=== PATIENT | female | born 1965 | race Caucasian/White ===

== ENCOUNTER 2016-05-18 18:43 | Emergency (ER) | payer BC ==
[2016-05-19] MEDS ORDERED: ALBUTEROL SULFATE HFA (90 MCG/PUFF) 8 GM MDI (1 MDI/ER DISP) IH ONE (00:02)
[2016-05-19] MEDS ORDERED: DOXYCYCLINE HYCLATE 100 MG TABLET PO ONE (00:04)
--- NOTE | 2016-05-19 00:06 | ER Document Report ---
ED General - General Chief Complaint: Cough Stated Complaint: COUGH TRAVEL OUTSIDE OF THE [place] IN LAST 30 DAYS: No - HPI Patient complains to provider of: cough Notes: Patient coming in from local urgent care for evaluation of bronchitis. Patient states before she was diagnosed with pneumonia and was started on ciprofloxacin for antibiotic coverage of her pneumonia patient was also given Tessalon Perles for cough patient states she was seen at urgent care today continue to have symptoms and was referred to the ER for further evaluation of her bronchitis. Patient denies fevers chills denies any recent travel and ciprofloxacin denies any other antibiotics. Patient was given a shot of steroids prior to arrival. - Related Data Allergies/Adverse Reactions: hydrocodone Allergy (Verified 05/18/16 19:00) midazolam [From Versed] Allergy (Verified 05/18/16 19:00) oxycodone Allergy (Verified 05/18/16 19:00) promethazine [From Phenergan] Allergy (Verified 05/18/16 19:00) red dye Allergy (Verified 05/18/16 19:00) Past Medical History - General Information source: Patient - Social History Smoking Status: Never Smoker Chew tobacco use (# tins/day): No Frequency of alcohol use: None Drug Abuse: None Family History: Reviewed & Not Pertinent Patient has suicidal ideation: No Patient has homicidal ideation: No Review of Systems - Review of Systems Constitutional: No symptoms reported EENT: No symptoms reported Cardiovascular: No symptoms reported Respiratory: Cough, Sputum Gastrointestinal: No symptoms reported Genitourinary: No symptoms reported Female Genitourinary: No symptoms reported Musculoskeletal: No symptoms reported Skin: No symptoms reported Hematologic/Lymphatic: No symptoms reported Neurological/Psychological: No symptoms reported -: Yes All other systems reviewed and negative Physical Exam - Vital signs Vitals: Temp Pulse Resp BP 98.2 F 89 24 H 151/75 H 05/18/16 18:51 05/18/16 18:51 05/18/16 18:51 05/18/16 18:51 Interpretation: Normal - General General appearance: Appears well, Alert - HEENT Head: Normocephalic, Atraumatic Eyes: Normal Pupils: PERRL - Respiratory Respiratory status: No respiratory distress Chest status: Nontender Breath sounds: Normal Chest palpation: Normal - Cardiovascular Rhythm: Regular Heart sounds: Normal auscultation Murmur: No - Abdominal Inspection: Normal Distension: No distension Bowel sounds: Normal Tenderness: Nontender Organomegaly: No organomegaly - Back Back: Normal, Nontender - Extremities General upper extremity: Normal inspection, Nontender, Normal color, Normal ROM , Normal temperature General lower extremity: Normal inspection, Nontender, Normal color, Normal ROM , Normal temperature, Normal weight bearing. No: Cynthia's sign - Neurological Neuro grossly intact: Yes Cognition: Normal Orientation: AAOx4 [place] Coma Scale Eye Opening: Spontaneous Gillian Coma Scale Verbal: Oriented [place] Coma Scale Motor: Obeys Commands Gillian Coma Scale Total: 15 Speech: Normal Motor strength normal: LUE, RUE, LLE, RLE Sensory: Normal - Psychological Associated symptoms: Normal affect, Normal mood - Skin Skin Temperature: Warm Skin Moisture: Dry Skin Color: Normal Course - Re-evaluation Re-evalutation: 05/19/16 04:09 Patient with no respiratory distress. Patient is actively coughing nonproductive. Explained patient is possibly viral although since the patient has had symptoms for over 7 days we can try doxycycline see if this will help out with her symptoms. Explained patient was not a great choice for her pneumonia coverage. However patient is afebrile does not look she are sound like she has pneumonia at this time. Patient will be treated otherwise symptomatically discharged home - Vital Signs Vital signs: Temp Pulse Resp BP Pulse Ox 98.2 F 89 18 147/62 H 97 05/18/16 18:51 05/19/16 00:41 05/19/16 00:41 05/19/16 00:41 05/19/16 00:41 Discharge - Discharge Clinical Impression: Bronchitis Condition: Good Disposition: HOME, SELF-CARE Instructions: Bronchitis ([facility]) Additional Instructions: Follow-up with your primary care physician. Will try to place you on a bronchodilator and antibiotic of doxycycline to treat her bronchitis. Prescriptions: Doxycycline Hyclate 100 mg PO BID #14 capsule Forms: Return to Work
[2016-05-19 00:43] VITALS: BP 147/62
== END 2016-05-19 00:44 | disposition home or self-care (01) ==
LOC: ER 18:43
DX: J40 Bronchitis, not specified as acute or chronic (principal); R05 Cough
CPT/HCPCS: 99283; J3490

== ENCOUNTER 2016-09-12 22:24 | Emergency (ER) | payer BC, OTHER ==
[2016-09-12 23:21] LABS: ABSOLUTE BASOPHILS # (AUTO) 0.1 10^3/uL (0.0-0.2); ABSOLUTE LYMPHOCYTES (AUTO) 1.7 10^3/uL (0.5-4.7); ABSOLUTE MONOCYTES (AUTO) 0.9 10^3/uL (0.1-1.4); ABSOLUTE NEUT (AUTO) 7.2 10^3/uL (1.7-8.2); BASOPHILS % (AUTO) 0.6 % (0-2); EOSINOPHILS % (AUTO) 0.1 % (0-6); HEMATOCRIT 38.4 % (36.0-47.0); HEMOGLOBIN 12.9 g/dL (12.0-15.5); HGB HCT DIFFERENCE 0.3; LYMPHOCYTES % (AUTO) 17.4 % (13-45); MEAN CORPUSCULAR HEMOGLOBIN 28.4 pg (27.0-33.4); MEAN CORPUSCULAR HGB CONC 33.5 g/dL (32.0-36.0); MEAN CORPUSCULAR VOLUME 85 fl (80-97); MONOCYTES % (AUTO) 9.1 % (3-13); RED BLOOD COUNT 4.53 10^6/uL (3.72-5.28); RED CELL DISTRIBUTION WIDTH 13.8 % (11.5-14.0); SEGMENTED NEUTROPHILS % (AUTO) 72.8 % (42-78); WHITE BLOOD COUNT 9.9 10^3/uL (4.0-10.5)
[2016-09-12 23:34] LABS: ALANINE AMINOTRANSFERASE 25 U/L (9-52); ALBUMIN 4.6 g/dL (3.5-5.0); ALKALINE PHOSPHATASE 79 U/L (38-126); ANION GAP 16 (5-19); ASPARTATE AMINO TRANSFERASE 19 U/L (14-36); BILIRUBIN,DIRECT 0.1 mg/dL (0.0-0.4); BILIRUBIN,TOTAL 0.3 mg/dL (0.2-1.3); BLOOD UREA NITROGEN 21 mg/dL (7-20); CALCIUM 9.7 mg/dL (8.4-10.2); CARBON DIOXIDE 23 mmol/L (22-30); CHLORIDE 107 mmol/L (98-107); CREATININE RESULT 0.75 mg/dL (0.52-1.25); GLUCOSE 105 mg/dL (75-110); LIPASE 91.5 U/L (23-300); POTASSIUM 4.5 mmol/L (3.6-5.0); SODIUM 145.6 mmol/L (137-145); TOTAL PROTEIN 6.9 g/dL (6.3-8.2)
[2016-09-12 23:35] LABS: APPEARANCE,URINE SLIGHTLY-CLOUDY; BILIRUBIN,URINE NEGATIVE (NEGATIVE); CALCIUM OXALATE CRYSTALS,URINE TOO NUMEROUS TO CNT /HPF; GLUCOSE, URINE NEGATIVE (NEGATIVE); KETONES,URINE TRACE mg/dL (NEGATIVE); LEUKOCYTE ESTERASE,URINE NEGATIVE (NEGATIVE); NITRITE,URINE NEGATIVE (NEGATIVE); PROTEIN,URINE 100 mg/dL (NEGATIVE); URINE SPECIFIC GRAVITY 1.039; UROBILINOGEN,URINE NEGATIVE mg/dL (<2.0)
[2016-09-12] MEDS ORDERED: ONDANSETRON 4 MG TAB.RAPDIS PO ONE (23:54)
[2016-09-12] MEDS ORDERED: KETOROLAC TROMETHAMINE 60 MG/2 ML SDV IM ONE (23:54)
--- NOTE | 2016-09-12 23:57 | ER Document Report ---
ED General - General Chief Complaint: Abdominal Pain Stated Complaint: ABDOMINAL PAIN Notes: Patient is 50-year-old female who presents with complaint of left-sided abdominal pain. She says she pain in her back initially. Now pain is mostly in the left lower quadrant. She says pain is not quite as bad as it was earlier but she still has pain. She's had some nausea but no vomiting. No fevers. She has had some constipation. She has dysuria when she urinates. Symptoms started approximately 30 minutes prior to arrival. She's never had similar symptoms like this before. Only new medication is furosemide. TRAVEL OUTSIDE OF THE [place] IN LAST 30 DAYS: No - HPI Notes: Patient is now feeling improved. CT scan shows that the stone is in the bladder. I asked patient about switching take for pain control. She has multiple allergies including hydrocodone and oxycodone. Patient says she Take his medications. They just cause some itching. She says she takes some of Benadryl and itching is well controlled. She never had any airway compromise or difficulty breathing when taking these medications. I will give her a Hershey to go pack to go home with. Hopefully she'll not need much pain medicine as systems are in her bladder. She is no signs infection. She looks well. I feel she is safe to be discharged home. I encourage her to return to ER shows worsening pain, vomiting, fevers, or feels unwell. Patient agrees with plan will be discharged home. Dictation of this chart was performed using voice recognition software; therefore, there may be some unintended grammatical errors. - Related Data Allergies/Adverse Reactions: hydrocodone Allergy (Verified 09/12/16 22:47) midazolam [From Versed] Allergy (Verified 09/12/16 22:47) oxycodone Allergy (Verified 09/12/16 22:47) promethazine [From Phenergan] Allergy (Verified 09/12/16 22:47) red dye Allergy (Verified 09/12/16 22:47) Past Medical History - Social History Smoking Status: Never Smoker Frequency of alcohol use: None Drug Abuse: None Family History: Reviewed & Not Pertinent Patient has suicidal ideation: No Patient has homicidal ideation: No Renal/ Medical History: Denies: Hx Peritoneal Dialysis Review of Systems - Review of Systems Notes: My Normal Review Basic REVIEW OF SYSTEMS: CONSTITUTIONAL : Denies fever, chills, or sweats. Denies recent illness. RESPIRATORY: Denies cough, cold, or chest congestion. Denies shortness of breath, difficulty breathing, or wheezing. GASTROINTESTINAL: Left flank and left lower quadrant abdominal pain. Nausea. Denies constipation. Last BM: GENITOURINARY: Dysuria FEMALE GENITOURINARY: Denies vaginal bleeding, abnormal or irregular periods. MUSCULOSKELETAL: Denies neck or back pain or joint pain or swelling. SKIN: Denies rash or skin lesions. NEUROLOGICAL: Denies altered mental status or loss of consciousness. Denies headache. Denies weakness or paralysis or loss of use of either side. Denies problems with gait or speech. Denies sensory or motor loss. ALL OTHER SYSTEMS REVIEWED AND NEGATIVE. Physical Exam - Vital signs Vitals: Temp Pulse Resp BP Pulse Ox 97.5 F 54 L 24 H 167/95 H 96 09/12/16 22:47 09/12/16 22:47 09/12/16 22:47 09/12/16 22:47 09/12/16 22:47 - Notes Notes: General Appearance: Well nourished, alert, cooperative, no acute distress, moderate obvious discomfort. Vitals: reviewed, See vital signs table. Head: no swelling or tenderness to the head Eyes: PERRL, EOMI, Conjuctiva clear Mouth: No decreasd moisture Neck: Supple, no neck tenderness, No thyromegaly Lungs: No wheezing, No rales, No rhonci, No accessory muscle use, good air exchange bilaterally. Heart: Normal rate, Regular rythm, No murmur, no rub Abdomen: Normal BS, soft, No rigidity, or left lower quadrant abdominal tenderness to palpation, No guarding, no rebound, no abdominal masses, no organomegaly Extremities: strength 5/5 in all extremities, good pulses in all extremities, no swelling or tenderness in the extremities, no edema. Skin: warm, dry, appropriate color, no rash Neuro: speech clear, oriented x 3, normal affect, responds appropriately to questions. Course - Vital Signs Vital signs: Temp Pulse Resp BP Pulse Ox 97.5 F 54 L 24 H 167/95 H 96 09/12/16 22:47 09/12/16 22:47 09/12/16 22:47 09/12/16 22:47 09/12/16 22:47 - Laboratory Result Diagrams: 09/12/16 23:07 09/12/16 23:07 Laboratory results interpreted by me: 09/12/16 09/12/16 23:07 23:07 Sodium 145.6 H BUN 21 H Urine Protein 100 H Urine Ketones TRACE H Urine Blood MODERATE H Discharge - Discharge Clinical Impression: Calculus of left kidney Condition: Good Disposition: HOME, SELF-CARE Additional Instructions: KIDNEY STONE: You are passing or have passed a kidney stone. These stones are usually due to increased calcium or uric acid concentrations in your urine. Stones within the kidney itself are not painful. The pain occurs as the stone leaves the kidney to pass down the long tube, called the ureter, leading to the bladder. If the stone is small, it will usually pass by itself. Most patients can pass the stone at home. You will usually receive medications for pain, nausea or vomiting, and sometimes a medication to assist in passing the kidney stone. However, if the pain is very severe or if vomiting prevents you from taking oral pain medications, you may need to return for further treatment. Drink three or four quarts of fluids per day. You will be given pain medication (if needed) and urine strainers. Strain all your urine to see if the stone passes. If your doctor has asked you to bring the stone in for analysis, return with the stone once it has passed. Return if pain or vomiting become severe, if you develop a high fever, if you are unable to pass your urine, or if other unusual symptoms occur. PAIN MEDICATION INJECTION: You have received an injection of a pain medication. You should experience significant pain relief within 45 minutes. This drug is a narcotic - - it will impair your judgement, slow your reaction time and make you sleepy ( as well as relieve your pain). Narcotics also can cause nausea. You should not drive, work with machinery, or perform any task requiring mental alertness until all effects of the medication are gone -- six to eight hours. Do not take any alcohol, or sedatives, and do not take any other medication without checking with your physician. ANTINAUSEA MEDICATION: You have been given a medication to suppress nausea and vomiting. This type of medication can be given as a shot, pill, or suppository. It will usually last for many hours. Pills and shots usually last six to eight hours, suppositories last about 12 hours. For the typical illness, only one or two doses of the medication may be necessary. Mild lightheadedness may occur. This type of medicine can cause drowsiness. Do not drive or operate dangerous machinery while under its influence. Do not mix with alcohol. See your doctor at once if you have muscle spasms or tightness, or uncontrollable motions (particularly of the neck, mouth, or jaw). Persistent vomiting or severe lightheadedness should also be evaluated by the physician. ORAL NARCOTIC MEDICATION: You have been given a prescription for pain control. This medication is a narcotic. It's best taken with food, as nausea can result if taken on an empty stomach. Don't operate machinery or drive within six hours of taking this medication. Do not combine this medicine with alcohol, or with any medication which can cause sedation (such as cold tablets or sleeping pills) unless you get permission from the physician. Narcotics tend to cause constipation. If possible, drink plenty of fluids and eat a diet high in fiber and fruits. Please be aware that prescription narcotics also have the potential for abuse. People become addicted to these medications because of the general sense of wellbeing that they induce. This feeling along with a significant reduction in tension, anxiety, and aggression provides a stimulating seductive quality to these drugs. Once your pain is under control, we encourage you to discard your unused narcotics. FOLLOW-UP CARE: If you have been referred to a physician for follow-up care, call the physician s office for an appointment as you were instructed or within the next two days. If you experience worsening or a significant change in your symptoms, notify the physician immediately or return to the Emergency Department at any time for re-evaluation. Please return to the ER immediately if you develop worsening pain, fevers, recurrent vomiting, or feel unwell. Referrals: YARELI GONZALEZ MD [Primary Care Provider] - Follow up in 3-5 days
[2016-09-13] MEDS ORDERED: HYDROCODONE/ACETAMINOPHEN 5-325 MG 6 TAB/DSPK PO PRN (01:45)
[2016-09-13] MEDS ORDERED: ONDANSETRON ODT 4 MG TAB (6 TAB/DSPK) PO PRN (01:50)
[2016-09-13 04:09] VITALS: BP 151/82
== END 2016-09-13 03:10 | disposition home or self-care (01) ==
LOC: ER 22:24
DX: N20.0 Calculus of kidney (principal); R30.0 Dysuria
CPT/HCPCS: 99284; 96372; 36415; 83690; 85025; 80053; 81001; 76380; J1885; S0119

== ENCOUNTER 2016-10-30 09:29 | Inpatient (IN) | payer OTHER ==
[2016-10-30] MEDS ORDERED: ONDANSETRON HCL INJ/PF 4 MG/2 ML SDV ONE (09:32)
[2016-10-30] MEDS ORDERED: SUCCINYLCHOLINE CHLORIDE INJ 200 MG/10 ML VIAL ONE (09:32)
[2016-10-30] MEDS ORDERED: NEOSTIGMINE METHYLSULFATE 10 MG/10 ML VIAL ONE (09:32)
[2016-10-30] MEDS ORDERED: LIDOCAINE 2% INJ-PF (20 MG/ML) 10 ML AMPUL ONE (09:32)
[2016-10-30] MEDS ORDERED: GLYCOPYRROLATE INJ 0.4 MG/2 ML VIAL ONE (09:32)
[2016-10-30] MEDS ORDERED: ROCURONIUM BROMIDE INJ 50 MG/5 ML VIAL IV ONE (09:32)
[2016-10-30] MEDS ORDERED: DEXAMETHASONE SOD PHOSPHATE INJ 4 MG/1 ML VIAL ONE (09:32)
[2016-10-30] MEDS ORDERED: HYDROMORPHONE HCL INJ/PF 2 MG/ML AMPULE IV ONE (09:58)
[2016-10-30] MEDS ORDERED: ONDANSETRON HCL INJ/PF 4 MG/2 ML SDV IV ONE (09:58)
--- NOTE | 2016-10-30 10:34 | ER Document Report ---
ED Extremity Problem, Lower - General Mode of Arrival: Medic Information source: Patient TRAVEL OUTSIDE OF THE [place] IN LAST 30 DAYS: No - HPI Patient complains to provider of: Injury Location: Ankle - Right Occurred: Just prior to arrival Where: Home Onset/Duration: Sudden Context: Twisted <SERGIO BLACK - Last Filed: 10/30/16 10:29> <ALAINA CADET - Last Filed: 10/30/16 13:22> - General Chief Complaint: Ankle Injury Stated Complaint: RIGHT ANKLE INJURY Time Seen by Provider: 10/30/16 09:50 Notes: Patient is a 51-year-old female presenting to the emergency department concerned of right ankle pain and deformation after she rolled it while spring cleaning prior to arrival. Patient also complains of tenderness to the right knee and states that her toes feel very numb. Patient has history of multiple knee surgeries secondary to arthritis, including bilateral knee replacements. (SERGIO BLACK) - Related Data Allergies/Adverse Reactions: hydrocodone Allergy (Verified 09/12/16 22:47) midazolam [From Versed] Allergy (Verified 09/12/16 22:47) oxycodone Allergy (Verified 09/12/16 22:47) promethazine [From Phenergan] Allergy (Verified 09/12/16 22:47) red dye Allergy (Verified 09/12/16 22:47) pregabalin [From Lyrica] Adverse Reaction (Verified 10/30/16 13:12) Generalized edema Past Medical History - General Information source: Patient - Social History Smoking Status: Never Smoker Family History: Reviewed & Not Pertinent - Past Medical History Cardiac Medical History: Reports: Hx Hypercholesterolemia, Hx Hypertension Pulmonary Medical History: Reports: Other - Diaphragmatic paralysis Neurological Medical History: Reports: Hx Migraine, Other - Chiari I information Past Surgical History: Reports: Hx Breast Surgery - reduction, Hx Section, Hx Gastric Bypass Surgery, Hx Orthopedic Surgery - Multiple bilateral knee surgeries including bilateral replacements, Other - Sphenocath <SERGIO BLACK - Last Filed: 10/30/16 10:29> Review of Systems - Review of Systems Constitutional: No symptoms reported EENT: No symptoms reported Cardiovascular: No symptoms reported Respiratory: No symptoms reported Gastrointestinal: No symptoms reported Genitourinary: No symptoms reported Female Genitourinary: No symptoms reported Musculoskeletal: See HPI, Ankle swelling - Right ankle deformity, Other - Right knee pain Skin: No symptoms reported Hematologic/Lymphatic: No symptoms reported Neurological/Psychological: No symptoms reported -: Yes All other systems reviewed and negative <SERGIO BLACK - Last Filed: 10/30/16 10:29> Physical Exam - General General appearance: Alert - HEENT Head: Normocephalic, Atraumatic Eyes: Normal Pupils: PERRL - Respiratory Respiratory status: No respiratory distress Chest status: Nontender Breath sounds: Normal Chest palpation: Normal - Cardiovascular Rhythm: Regular Heart sounds: Normal auscultation Murmur: No - Abdominal Inspection: Obese Tenderness: Nontender - Back Back: Normal, Nontender - Extremities General upper extremity: Normal inspection, Nontender Knee: Tender - Right lateral knee at distal femur very tender to palpation Ankle: Deformity - Right ankle is laterally pronounced outward, inverted and dislocated medially. Significantly tender with edema above right ankle. Toes cool to touch. - Neurological Neuro grossly intact: Yes Cognition: Normal Orientation: AAOx4 [place] Coma Scale Eye Opening: Spontaneous [place] Coma Scale Verbal: Oriented [place] Coma Scale Motor: Obeys Commands Gillian Coma Scale Total: 15 Speech: Normal Motor strength normal: LUE, RUE, LLE, RLE Sensory: Normal - Psychological Associated symptoms: Normal affect, Normal mood - Skin Skin Temperature: Warm - except for right toes Skin Moisture: Dry <SERGIO BLACK - Last Filed: 10/30/16 10:29> Course <SERGIO BLACK - Last Filed: 10/30/16 10:29> - Diagnostic Test Radiology reviewed: Image reviewed, Reports reviewed - Right ankle fracture dislocation adequately reduced, right distal femur fracture - Consults Dr. Ocampo Consulted provider: will see as inpatient Dr. Bañuelos Time consulted: 11:10 Consulted provider: will come to ER <ALAINA CADET - Last Filed: 10/30/16 13:22> - Re-evaluation Re-evalutation: 10/30/16 11:32 Patient developed some itching, probably due to the Dilaudid. She is requesting Benadryl and that will be provided. 10/30/16 13:20 PROCEDURE: Shortly after the patient arrived, she had a saline lock started and was given 2 mg of Dilaudid with 8 mg of Zofran for pain control. The dislocated ankle was then pulled down and lined up and a posterior splint with a stirrup splint was applied by the PCT while I held the foot and ankle in position. A few minutes after this was done, the patient reported the feeling was returning to the toes and they were feeling better. A postreduction x-ray showed good alignment of the ankle. A pre-reduction x- ray was not done due to the desire to reduce the ankle as soon as possible because of the toes being numb. (ALAINA CADET) - Vital Signs Vital signs: Temp Pulse Resp BP Pulse Ox 97.2 F 62 24 H 103/54 L 95 10/30/16 09:35 10/30/16 09:35 10/30/16 12:00 10/30/16 11:01 10/30/16 12:00 Discharge <SERGIO BLACK - Last Filed: 10/30/16 10:29> - Discharge Admitting Provider: Hospitalist Unit Admitted: Medical Floor <ALAINA CADET - Last Filed: 10/30/16 13:22> - Discharge Clinical Impression: Fracture dislocation of right ankle Qualifiers: Encounter type: initial encounter Fracture type: closed Qualified Code(s): S82.891A - Other fracture of right lower leg, initial encounter for closed fracture Fracture of distal femur Qualifiers: Encounter type: initial encounter Fracture type: closed Fracture morphology: unspecified fracture morphology Laterality: right Qualified Code(s): S72.401A - Unspecified fracture of lower end of right femur, initial encounter for closed fracture Condition: Stable Disposition: ADMITTED INPATIENT Scribe Attestation: 10/30/16 11:10 I personally performed the services described in the documentation, reviewed and edited the documentation which was dictated to the scribe in my presence, and it accurately records my words and actions. (ALAINA CADET) Scribe Documentation - Scribe Written by Philip:: Philip Feliz, 10/30/2016 1029 acting as scribe for :: Genie <SERGIO BLACK - Last Filed: 10/30/16 10:29>
--- NOTE | 2016-10-30 10:46 | RADIOLOGY REPORT (SQ) ---
EXAM DESCRIPTION: ANKLE RIGHT COMPLETE COMPLETED DATE/TIME: 10/30/2016 10:28 am REASON FOR STUDY: fx-dis, post reduction COMPARISON: This study is marked postreduction, but no previous images are available. NUMBER OF VIEWS: Three views. TECHNIQUE: AP, lateral, and oblique radiographic images acquired of the right ankle. LIMITATIONS: None. FINDINGS: MINERALIZATION: Normal. BONES: The ankle is in a a dorsal splint. There is mild posterior angulation of the fibular fracture . On the AP view the alignment is satisfactory. JOINTS: No effusions. SOFT TISSUES: No soft tissue swelling. No foreign body. OTHER: No other significant finding. IMPRESSION: Findings as described. TECHNICAL DOCUMENTATION: JOB ID: [id number] [employer]- All Rights Reserved
--- NOTE | 2016-10-30 11:11 | RADIOLOGY REPORT (SQ) ---
EXAM DESCRIPTION: KNEE RIGHT 3 VIEWS COMPLETED DATE/TIME: 10/30/2016 10:59 am REASON FOR STUDY: PAIN, SWELLING, FALL COMPARISON: None. NUMBER OF VIEWS: Two views. TECHNIQUE: AP and lateral radiographic images acquired of the right knee. LIMITATIONS: None. FINDINGS: MINERALIZATION: Normal. BONES: There is a total knee arthroplasty in good position. There is a vertically oriented oblique f racture in the femoral metaphysis. JOINT: No effusion. SOFT TISSUES: No soft tissue swelling. No radio-opaque foreign body. OTHER: No other significant finding. IMPRESSION: Total knee arthroplasty with a vertically-oriented oblique fracture of the femoral metap hysis TECHNICAL DOCUMENTATION: JOB ID: [id number] [employer]- All Rights Reserved
[2016-10-30] MEDS ORDERED: DIPHENHYDRAMINE HCL 50 MG/ML VIAL IV ONE (11:31)
[2016-10-30] MEDS ORDERED: DIPHENHYDRAMINE HCL 50 MG/ML VIAL IV PRN (13:03)
[2016-10-30] MEDS ORDERED: HYDRALAZINE HCL INJ/PF 20 MG/1 ML SDV IV PRN (13:04)
[2016-10-30] MEDS ORDERED: ONDANSETRON HCL INJ/PF 4 MG/2 ML SDV IV PRN (13:11)
--- NOTE | 2016-10-30 13:21 | PDOC H&P ---
History of Present Illness Admission Date/PCP: 10/30/16 11:18 Patient complains of: Right leg pain History of Present Illness: CHELSEY ODEN is a 51 year old female with right leg pain status post fall today. Patient has had bilateral total knee arthroplasty in the past. She was found in the emergency department to have right ankle fracture as well as right distal femur fracture just proximal to joint prosthesis. Dr. Ocampo of orthopedics has agreed to manage patient surgically patient is to be admitted to hospitalist service. Patient otherwise was in her usual state of health until she fell. She has no other complaints. Medications have not been verified. Past Medical History Cardiac Medical History: Reports: Hyperlipidema, Hypertension Pulmonary Medical History: Reports: Other - Diaphragmatic paralysis Neurological Medical History: Reports: Migraine, Other - Chiari I information Past Surgical History Past Surgical History: Reports: Section, Gastric Bypass Surgery, Orthopedic Surgery - Multiple bilateral knee surgeries including bilateral replacements, Other - Sphenocath Social History Information Source: Patient Lives with: Family Smoking Status: Never Smoker Frequency of Alcohol Use: Rare Hx Recreational Drug Use: No Hx Prescription Drug Abuse: No - Advance Directive Resuscitation Status: Full Code Family History Family History: Reviewed & Not Pertinent Parental Family History Reviewed: Yes Children Family History Reviewed: Yes Sibling(s) Family History Reviewed.: Yes Medication/Allergy Allergies/Adverse Reactions: hydrocodone Allergy (Verified 09/12/16 22:47) midazolam [From Versed] Allergy (Verified 09/12/16 22:47) oxycodone Allergy (Verified 09/12/16 22:47) promethazine [From Phenergan] Allergy (Verified 09/12/16 22:47) red dye Allergy (Verified 09/12/16 22:47) pregabalin [From Lyrica] Adverse Reaction (Verified 10/30/16 13:12) Generalized edema Review of Systems Constitutional: ABSENT: chills, fever(s), headache(s), weight gain, weight loss Eyes: ABSENT: visual disturbances Ears: ABSENT: hearing changes Cardiovascular: ABSENT: chest pain, dyspnea on exertion, edema, orthropnea, palpitations Respiratory: ABSENT: cough, hemoptysis Gastrointestinal: ABSENT: abdominal pain, constipation, diarrhea, hematemesis, hematochezia, nausea, vomiting Genitourinary: ABSENT: dysuria, hematuria Musculoskeletal: PRESENT: other - Pain around right ankle and right knee. ABSENT: joint swelling Integumentary: ABSENT: rash, wounds Neurological: ABSENT: abnormal gait, abnormal speech, confusion, dizziness, focal weakness, syncope Psychiatric: ABSENT: anxiety, depression, homidical ideation, suicidal ideation Endocrine: ABSENT: cold intolerance, heat intolerance, polydipsia, polyuria Hematologic/Lymphatic: ABSENT: easy bleeding, easy bruising Physical Exam Vital Signs: Temp Pulse Resp BP Pulse Ox 97.2 F 62 24 H 103/54 L 95 10/30/16 09:35 10/30/16 09:35 10/30/16 12:00 10/30/16 11:01 10/30/16 12:00 Intake & Output 10/29/16 10/30/16 10/31/16 06:59 06:59 06:59 Weight 116.6 kg PHYSICAL EXAM: GENERAL: Appears well, no acute distress HEENT: Normocephalic, no scleral icterus, conjunctiva clear, EOEM intact, PERRLA , moist mucous membranes NECK: trachea midline, no thyromegally RESPIRATORY: Clear to auscultation, no wheezes/rhonchi CARDIAC: Regular rate and rhythm, no murmur/long/rub ABDOMEN: Soft, no distension, no tenderness, no guarding, normal bowel sounds, negative Stokes sign RECTAL: deferred : deferred EXTREMITIES: No edema, cyanosis, clubbing MUSCULOSKELETAL: Short leg posterior splint to right lower extremity VASCULAR: normal peripheral pulses NEUROLOGIC: Alert, oriented to person/place/time, normal speech, cranial nerves grossly intact, 5/5 strength in all extremities, tactile sensation intact in all extremities SKIN: No rash, no wounds, no worrisome skin lesions PSYCHIATRIC: Normal mood, normal affect Results Impressions: Ankle X-Ray 10/30/16 09:58 IMPRESSION: Distal fibular fracture with posterior angulation Knee X-Ray 10/30/16 10:30 IMPRESSION: Total knee arthroplasty with a vertically-oriented oblique fracture of the femoral metaphysis Assessment & Plan - Diagnosis (1) Fracture of distal femur Qualifiers: Encounter type: initial encounter Fracture type: closed Fracture morphology: unspecified fracture morphology Laterality: right Qualified Code(s): S72.401A - Unspecified fracture of lower end of right femur, initial encounter for closed fracture Is this a current diagnosis for this admission?: YesPlan: Dr. Ocampo planning surgery in a.m. for ORIF. As needed pain medicine. (2) Fracture dislocation of right ankle Qualifiers: Encounter type: initial encounter Fracture type: closed Qualified Code(s): S82.891A - Other fracture of right lower leg, initial encounter for closed fracture Is this a current diagnosis for this admission?: Yes (3) Hypertension Is this a current diagnosis for this admission?: YesPlan: Verify home medications. As needed IV hydralazine. (4) Anemia Is this a current diagnosis for this admission?: YesPlan: Patient reports history of anemia secondary to iron deficiency and B12 deficiency. Check baseline labs. Monitor H&H on DVT prophylaxis. (5) B12 deficiency Is this a current diagnosis for this admission?: YesPlan: Patient just had monthly B12 injection on 10/29/2016. (6) Chronic pain Is this a current diagnosis for this admission?: YesPlan: Patient has chronic pain left lower extremity for which she has been extensively evaluated by orthopedics as an outpatient. She was started on Cymbalta as an outpatient. - Time Time Spent: Greater than 70 Minutes
[2016-10-30 13:32] LABS: ABSOLUTE EOSINOPHILS # (AUTO) 0.1 10^3/uL (0.0-0.6); ABSOLUTE LYMPHOCYTES (AUTO) 1.1 10^3/uL (0.5-4.7); ABSOLUTE MONOCYTES (AUTO) 0.5 10^3/uL (0.1-1.4); BASOPHILS % (AUTO) 0.2 % (0-2); HEMATOCRIT 39.1 % (36.0-47.0); HEMOGLOBIN 12.6 g/dL (12.0-15.5); HGB HCT DIFFERENCE -1.3; MEAN CORPUSCULAR HEMOGLOBIN 28.3 pg (27.0-33.4); MEAN CORPUSCULAR HGB CONC 32.3 g/dL (32.0-36.0); MEAN CORPUSCULAR VOLUME 88 fl (80-97); MONOCYTES % (AUTO) 6.8 % (3-13); RED BLOOD COUNT 4.46 10^6/uL (3.72-5.28); RED CELL DISTRIBUTION WIDTH 14.4 % (11.5-14.0); WHITE BLOOD COUNT 7.7 10^3/uL (4.0-10.5)
[2016-10-30 13:35] LABS: PROTHROMBIN TIME 13.6 SEC (11.4-15.4)
[2016-10-30 13:36] LABS: PARTIAL THROMBOPLASTIN TIME 29.5 SEC (23.5-35.8)
[2016-10-30 13:44] LABS: ALANINE AMINOTRANSFERASE 34 U/L (9-52); ALKALINE PHOSPHATASE 99 U/L (38-126); ANION GAP 11 (5-19); ASPARTATE AMINO TRANSFERASE 22 U/L (14-36); BILIRUBIN,DIRECT 0.3 mg/dL (0.0-0.4); BILIRUBIN,TOTAL 0.4 mg/dL (0.2-1.3); BLOOD UREA NITROGEN 18 mg/dL (7-20); CALCIUM 9.4 mg/dL (8.4-10.2); CARBON DIOXIDE 28 mmol/L (22-30); CHLORIDE 104 mmol/L (98-107); CREATININE RESULT 0.83 mg/dL (0.52-1.25); GLUCOSE 104 mg/dL (75-110); MAGNESIUM 2.1 mg/dL (1.6-2.3); POTASSIUM 4.2 mmol/L (3.6-5.0); SODIUM 142.6 mmol/L (137-145); TOTAL PROTEIN 6.8 g/dL (6.3-8.2)
--- NOTE | 2016-10-30 14:33 | RADIOLOGY REPORT (SQ) ---
EXAM DESCRIPTION: CHEST SINGLE VIEW COMPLETED DATE/TIME: 10/30/2016 1:56 pm REASON FOR STUDY: preop COMPARISON: None. EXAM PARAMETERS: NUMBER OF VIEWS: One view. TECHNIQUE: Single frontal radiographic view of the chest acquired. RADIATION DOSE: NA LIMITATIONS: None. FINDINGS: LUNGS AND PLEURA: No opacities, masses or pneumothorax. No pleural effusion. MEDIASTINUM AND HILAR STRUCTURES: No masses. Contour normal. HEART AND VASCULAR STRUCTURES: Mild cardiomegaly. Normal vasculature. BONES: No acute findings. HARDWARE: None in the chest. OTHER: No other significant finding. IMPRESSION: NO ACUTE RADIOGRAPHIC FINDING IN THE CHEST. TECHNICAL DOCUMENTATION: JOB ID: [id number]
--- NOTE | 2016-10-30 15:21 | PDOC CONSULTATION ---
Consultation Consult Date: 10/30/16 Consult reason:: Right lower extremity pain/fracture History of Present Illness Admission Date/PCP: 10/30/16 13:05 History of Present Illness: 51-year-old white female status post bilateral knee arthroplasty in the past. Right has been implanted in [facility]. She fell today and sustained a right lower extremity injury. She was evaluated in emergency room where a right ankle fracture dislocation was identified and reduced. There is also a right distal femoral fracture. Past Medical History Cardiac Medical History: Reports: Hyperlipidema, Hypertension Pulmonary Medical History: Reports: Other - Diaphragmatic paralysis Neurological Medical History: Reports: Migraine, Other - Chiari I information Past Surgical History Past Surgical History: Reports: Section, Gastric Bypass Surgery, Orthopedic Surgery - Multiple bilateral knee surgeries including bilateral knee replacements, Other - Sphenocath Social History Information Source: Patient, [facility] Records Lives with: Family Smoking Status: Never Smoker Frequency of Alcohol Use: Rare Hx Recreational Drug Use: No Hx Prescription Drug Abuse: No - Advance Directive Resuscitation Status: Full Code Family History Family History: Reviewed & Not Pertinent Parental Family History Reviewed: No Children Family History Reviewed: No Sibling(s) Family History Reviewed.: No Medication/Allergy Allergies/Adverse Reactions: hydrocodone Allergy (Verified 09/12/16 22:47) midazolam [From Versed] Allergy (Verified 09/12/16 22:47) oxycodone Allergy (Verified 09/12/16 22:47) promethazine [From Phenergan] Allergy (Verified 09/12/16 22:47) red dye Allergy (Verified 09/12/16 22:47) pregabalin [From Lyrica] Adverse Reaction (Verified 10/30/16 13:12) Generalized edema Review of Systems All systems: as per H Physical Exam Vital Signs: Temp Pulse Resp BP Pulse Ox 36.6 C 63 18 137/58 H 94 10/30/16 12:58 10/30/16 12:58 10/30/16 12:58 10/30/16 12:58 10/30/16 12:58 General appearance: PRESENT: mild distress, morbidly obese Head exam: PRESENT: normocephalic Eye exam: PRESENT: EOMI Respiratory exam: PRESENT: unlabored Cardiovascular exam: PRESENT: RRR Pulses: PRESENT: +1 pedal pulses bilateral Vascular exam: PRESENT: normal capillary refill GI/Abdominal exam: PRESENT: soft Rectal exam: PRESENT: deferred Extremities exam: PRESENT: other - Was lying on ER gurney. Right lower extremity is elevated on pillows. Right ankle is immobilized in a splint. There is brisk capillary refill to the toes. Sensory examination is intact. There is considerable ecchymosis. There is a low-grade effusion in the knee. Psychiatric exam: PRESENT: appropriate affect, normal mood. ABSENT: homicidal ideation, suicidal ideation Skin exam: PRESENT: dry, intact, warm. ABSENT: cyanosis, rash Results Impressions: Ankle X-Ray 10/30/16 09:58 IMPRESSION: Findings as described. Knee X-Ray 10/30/16 10:30 IMPRESSION: Total knee arthroplasty with a vertically-oriented oblique fracture of the femoral metaphysis Chest X-Ray 10/30/16 13:10 IMPRESSION: NO ACUTE RADIOGRAPHIC FINDING IN THE CHEST. Status: Imported from PACS Assessment & Plan - Diagnosis (1) Fracture dislocation of right ankle Qualifiers: Encounter type: initial encounter Fracture type: closed Qualified Code(s): S82.891A - Other fracture of right lower leg, initial encounter for closed fracture Is this a current diagnosis for this admission?: YesPlan: 51-year-old white female with a right ankle fracture dislocation which was reduced in the emergency room but now needs to undergo an open reduction internal fixation (2) Fracture of distal femur Qualifiers: Encounter type: initial encounter Fracture type: closed Fracture morphology: unspecified fracture morphology Laterality: right Qualified Code(s): S72.401A - Unspecified fracture of lower end of right femur, initial encounter for closed fracture Is this a current diagnosis for this admission?: YesPlan: The patient's fall was presumably related to instability in the right knee arthroplasty. We will plan on proceeding with an open reduction internal fixation with a retrograde femoral nail and at the same time may be able to improve the stability of the right knee by exchanging the polyethylene. - Time Time Spent: 50 to 70 Minutes Critical Time spent with patient: 15-24 minutes Anticipated discharge: Home with Homehealth
[2016-10-30] MEDS: MORPHINE SULFATE 10 MG/ML INJ IV PRN ×3 (15:30→23:24)
--- NOTE | 2016-10-30 17:52 | EKG REPORT ---
SEVERITY:- NORMAL ECG - SINUS RHYTHM : Confirmed by: Curtis Feliz 30-Oct-2016 17:52:41
[2016-10-31] MEDS: MORPHINE SULFATE 10 MG/ML INJ IV PRN ×2 (03:37→22:44)
[2016-10-31] MEDS ORDERED: CEFAZOLIN 2 GM/D5W RTU 2 GM/50 ML RTUPB IV PRN (05:00)
[2016-10-31 05:11] LABS: ABSOLUTE BASOPHILS # (AUTO) 0.1 10^3/uL (0.0-0.2); ABSOLUTE EOSINOPHILS # (AUTO) 0.1 10^3/uL (0.0-0.6); ABSOLUTE LYMPHOCYTES (AUTO) 1.3 10^3/uL (0.5-4.7); ABSOLUTE MONOCYTES (AUTO) 0.8 10^3/uL (0.1-1.4); ABSOLUTE NEUT (AUTO) 5.8 10^3/uL (1.7-8.2); BASOPHILS % (AUTO) 0.8 % (0-2); EOSINOPHILS % (AUTO) 1.7 % (0-6); HEMATOCRIT 36.1 % (36.0-47.0); HEMOGLOBIN 11.9 g/dL (12.0-15.5); HGB HCT DIFFERENCE -0.4; LYMPHOCYTES % (AUTO) 16.5 % (13-45); MEAN CORPUSCULAR HEMOGLOBIN 28.3 pg (27.0-33.4); MEAN CORPUSCULAR HGB CONC 32.9 g/dL (32.0-36.0); MEAN CORPUSCULAR VOLUME 86 fl (80-97); MONOCYTES % (AUTO) 9.5 % (3-13); RED BLOOD COUNT 4.19 10^6/uL (3.72-5.28); RED CELL DISTRIBUTION WIDTH 14.4 % (11.5-14.0); SEGMENTED NEUTROPHILS % (AUTO) 71.5 % (42-78); WHITE BLOOD COUNT 8.2 10^3/uL (4.0-10.5)
[2016-10-31 05:26] LABS: ANION GAP 11 (5-19); BLOOD UREA NITROGEN 13 mg/dL (7-20); CALCIUM 9.5 mg/dL (8.4-10.2); CARBON DIOXIDE 28 mmol/L (22-30); CHLORIDE 101 mmol/L (98-107); CREATININE RESULT 0.67 mg/dL (0.52-1.25); GLUCOSE 124 mg/dL (75-110); POTASSIUM 4.5 mmol/L (3.6-5.0); SODIUM 139.9 mmol/L (137-145)
[2016-10-31] MEDS ORDERED: KETAMINE HCL INJ 500 MG/10 ML VIAL ONE (07:56)
[2016-10-31] MEDS ORDERED: FENTANYL CITRATE INJ/PF 100 MCG/2 ML AMPUL ONE (07:56)
[2016-10-31] MEDS ORDERED: DEXMEDETOMIDINE INJ 80 MCG/20 ML VIAL IV ONE (07:57)
[2016-10-31] MEDS ORDERED: EPHEDRINE SULFATE INJ 50 MG/1 ML AMPULE ONE (07:57)
[2016-10-31] MEDS ORDERED: ACETAMINOPHEN 100 ML IV ONE (07:57)
[2016-10-31] MEDS ORDERED: IBUPROFEN INJ 800 MG/8 ML VIAL IV ONE (07:57)
[2016-10-31] MEDS ORDERED: PROPOFOL INJ 200 MG/20 ML VIAL IV ONE (07:57)
[2016-10-31] MEDS ORDERED: MORPHINE SULFATE 10 MG/ML INJ ONE (08:02)
[2016-10-31] MEDS ORDERED: THROMBIN (BOVINE) TOPICAL 20000 UNIT VIAL ONE (08:03)
[2016-10-31] MEDS ORDERED: THROMBIN (BOVINE) 5000 UNIT EPITAXIS KIT ONE (08:03)
[2016-10-31] MEDS ORDERED: BUPIVACAINE INJ/PF LIPOSOME/PF 266 MG/20 ML SDV ONE (08:03)
[2016-10-31] MEDS ORDERED: MEPERIDINE HCL/PF INJ 25 MG/1 ML DISP.SYRIN IV PRN (09:24)
[2016-10-31] MEDS ORDERED: DIPHENHYDRAMINE HCL 50 MG/ML VIAL IV PRN ×2 (09:24→15:14)
[2016-10-31] MEDS ORDERED: MORPHINE SULFATE 10 MG/ML INJ IV PRN (09:24)
[2016-10-31] MEDS ORDERED: ONDANSETRON HCL INJ/PF 4 MG/2 ML SDV IV PRN ×2 (09:24→10:58)
[2016-10-31] MEDS ORDERED: FENTANYL CITRATE INJ/PF 100 MCG/2 ML AMPUL IV PRN ×3 (09:24)
[2016-10-31] MEDS ORDERED: CETIRIZINE 10 MG TABLET PO SCH (10:00)
--- NOTE | 2016-10-31 10:43 | Operative Report ---
Operative Report DATE OF SURGERY: 10/31/16 PREOPERATIVE DIAGNOSIS: Right ankle fracture. Right distal femur fracture. Right periprosthetic knee instability OPERATION: ORIF right ankle. ORIF right distal femur. Revision tibial implant right knee arthroplasty SURGEON: SWEETIE BRODY ANESTHESIA: GA TISSUE REMOVED OR ALTERED: There is 2 to microbiology. Soft tissue to pathology ESTIMATED BLOOD LOSS: 250 PROCEDURE: With the patient supine on the [place] fracture table the right lower extremities prepped and draped in a sterile fashion. The limb was elevated for exsanguination tourniquet inflated 280 torr. A longitudinal incision was made over the distal fibula and sharp dissection was used to expose the underlying fracture. The fracture is reduced under direct visualization using a lobster- claw clamp. A 10 hole titanium Gardner spoon plate is applied to the lateral surface of the distal fibula and secured with a combination of locking and bicortical screws. Hardware placement and fracture reduction are checked fluoroscopically and felt to be adequate. At this point the sterile draping was taken down and the patient was reprepped and draped using a sterile tourniquet. The is again elevated for exsanguination and tourniquet inflated 280 torr. A anterior approach knee is taken through medial parapatellar approach as in her previous knee arthroplasty had used. In attempting to mobilize the patella to expose the underlying implants both a lateral release as well as a quadriceps snip is performed. At this point the underlying knee joint is easily examined. Access was gained through the intracondylar notch and flexible reamers were used to fashion the diameter intramedullary to 14 mm. Subsequently a 300 mm x 13 mm titanium retrograde femoral nail from Gardner is advanced and secured with 1 screw anterior through a dynamic hole proximally and 3 bicortical screws distally. Because the patient states she fell from persistent right prosthetic knee instability that has been present since its implantation in [facility], I chose to evaluate knee stability. By increasing the polyethylene tibial spacer from 11 mm to 13 mm I did not lose anything in terms of terminal extension and I improve the varus valgus stability. Subsequently 13 mm Gardner CS insert was impacted into the tibial tray, size 5 this point the tourniquet was deflated. The wounds are irrigated and closed using interrupted Vicryl followed by loreta. A sterile compressive dressing and a posterior plaster splint to the ankle are applied and the patient's return to the PACU in satisfactory condition.
[2016-10-31] MEDS ORDERED: CEFAZOLIN INJ 1 GM VIAL ONE ×2 (10:48→14:16)
[2016-10-31] MEDS ORDERED: TRANEXAMIC ACID INJ/PF 1,000 MG/10 ML SDV IV ONE (10:51)
[2016-10-31] MEDS ORDERED: OXYCODONE HCL IR 5 MG TABLET PO PRN (10:57)
[2016-10-31] MEDS ORDERED: RINGERS SOLUTION,LACTATED 1,000 ML IV PRN ×2 (11:10)
[2016-10-31] MEDS: CHOLECALCIFEROL (D3) 1,000 UNIT TABLET PO SCH (11:28)
[2016-10-31] MEDS: FERROUS SULFATE 325 MG TABLET PO SCH (11:28)
[2016-10-31] MEDS: FUROSEMIDE 20 MG TABLET PO SCH (11:28)
[2016-10-31] MEDS: ENOXAPARIN SODIUM INJ 40 MG/0.4 ML DISP.SYRIN SUBCUT SCH (11:28)
[2016-10-31] MEDS: ATORVASTATIN CALCIUM 40 MG TABLET PO SCH (11:28)
[2016-10-31] MEDS: VALSARTAN 80 MG TABLET PO SCH (11:28)
[2016-10-31] MEDS: CETIRIZINE 10 MG TABLET PO SCH (11:28)
[2016-10-31] MEDS ORDERED: DIPHENHYDRAMINE HCL 50 MG/ML VIAL ONE (11:30)
--- NOTE | 2016-10-31 15:24 | PDOC PROGRESS REPORT ---
Subjective Progress Note for:: 10/31/16 Subjective:: Patient s/p ORIF of right ankle/right femur fracturs today. Pain controlled. Physical Exam Vital Signs: Temp Pulse Resp BP Pulse Ox 97.8 F 101 H 18 121/52 L 98 10/31/16 13:30 10/31/16 13:30 10/31/16 13:30 10/31/16 13:30 10/31/16 13:30 Intake & Output 10/30/16 10/31/16 11/01/16 06:59 06:59 06:59 Intake Total 1215 4100 Output Total 1000 2055 Balance 215 2045 Weight 119.7 kg 119.7 kg General appearance: PRESENT: no acute distress, well-developed, well-nourished Head exam: PRESENT: atraumatic, normocephalic Eye exam: PRESENT: conjunctiva pink, EOMI, PERRLA. ABSENT: scleral icterus Ear exam: PRESENT: normal external ear exam Mouth exam: PRESENT: moist, tongue midline Neck exam: ABSENT: carotid bruit, JVD, lymphadenopathy, thyromegaly Respiratory exam: PRESENT: clear to auscultation lela. ABSENT: rales, rhonchi, wheezes Cardiovascular exam: PRESENT: RRR. ABSENT: diastolic murmur, rubs, systolic murmur Pulses: PRESENT: normal dorsalis pedis pul Vascular exam: PRESENT: normal capillary refill GI/Abdominal exam: PRESENT: normal bowel sounds, soft. ABSENT: distended, guarding, mass, organolmegaly, rebound, tenderness Rectal exam: PRESENT: deferred Extremities exam: PRESENT: full ROM. ABSENT: calf tenderness, clubbing, pedal edema Musculoskeletal exam: PRESENT: other - splint/dressing to RLE Neurological exam: PRESENT: alert, awake, oriented to person, oriented to place , oriented to time, oriented to situation, CN II-XII grossly intact. ABSENT: motor sensory deficit Psychiatric exam: PRESENT: appropriate affect, normal mood. ABSENT: homicidal ideation, suicidal ideation Skin exam: PRESENT: dry, intact, warm. ABSENT: cyanosis, rash Results Laboratory Results: 10/31/16 04:31 10/31/16 04:31 10/31/16 10/31/16 04:31 04:31 WBC 8.2 RBC 4.19 Hgb 11.9 L Hct 36.1 MCV 86 MCH 28.3 MCHC 32.9 RDW 14.4 H Plt Count 179 Seg Neutrophils % 71.5 Lymphocytes % 16.5 Monocytes % 9.5 Eosinophils % 1.7 Basophils % 0.8 Absolute Neutrophils 5.8 Absolute Lymphocytes 1.3 Absolute Monocytes 0.8 Absolute Eosinophils 0.1 Absolute Basophils 0.1 Sodium 139.9 Potassium 4.5 Chloride 101 Carbon Dioxide 28 Anion Gap 11 BUN 13 Creatinine 0.67 Est GFR ( Amer) > 60 Est GFR (Non-Af Amer) > 60 Glucose 124 H Calcium 9.5 Impressions: Knee X-Ray 10/30/16 10:30 IMPRESSION: Total knee arthroplasty with a vertically-oriented oblique fracture of the femoral metaphysis Chest X-Ray 10/30/16 13:10 IMPRESSION: NO ACUTE RADIOGRAPHIC FINDING IN THE CHEST. Assessment & Plan - Diagnosis (1) Fracture of distal femur Qualifiers: Encounter type: initial encounter Fracture type: closed Fracture morphology: unspecified fracture morphology Laterality: right Qualified Code(s): S72.401A - Unspecified fracture of lower end of right femur, initial encounter for closed fracture Is this a current diagnosis for this admission?: YesPlan: Dr. Ocampo performed ORIF on 10/31/16. Weight bearing precautions per ortho. As needed pain medicine. (2) Fracture dislocation of right ankle Qualifiers: Encounter type: initial encounter Fracture type: closed Qualified Code(s): S82.891A - Other fracture of right lower leg, initial encounter for closed fracture Is this a current diagnosis for this admission?: YesPlan: Dr. Ocampo performed ORIF on 10/31/16. Weight bearing precautions per ortho. As needed pain medicine. (3) Hypertension Is this a current diagnosis for this admission?: YesPlan: Valsartan. As needed IV hydralazine. (4) Anemia Is this a current diagnosis for this admission?: Yes (5) B12 deficiency Is this a current diagnosis for this admission?: YesPlan: Patient had monthly B12 injection on 10/29/2016. (6) Chronic pain Is this a current diagnosis for this admission?: YesPlan: Patient has chronic pain left lower extremity for which she has been extensively evaluated by orthopedics as an outpatient. She was started on Cymbalta as an outpatient. - Time Time Spent with patient: 25-34 minutes
--- NOTE | 2016-10-31 16:04 | RADIOLOGY REPORT (SQ) ---
EXAM DESCRIPTION: FEMUR RIGHT; NO CHG FLUORO COMPLETED DATE/TIME: 10/31/2016 2:38 pm REASON FOR STUDY: RT FEMUR FX COMPARISON: Right knee films 10/30/2016 FLUOROSCOPY TIME: 0.7 minutes 3 digital C-arm images saved to PACS. TECHNIQUE: Intra-operative images acquired during surgical procedure to evaluate progress. NUMBER OF IMAGES: Cine fluoroscopic images. LIMITATIONS: None. FINDINGS: Intra procedural imaging and fluoro during placement of a right femoral intramedullary sydnee l and anchoring distal femoral metaphysis screws. Please see the operative report for further detail s IMPRESSION: Intra procedural imaging and fluoro COMMENT: Quality ID [id number]: Final reports for procedures using fluoroscopy that document radiation exp osure indices, or exposure time and number of fluorographic images (if radiation exposure indices are not available) Please consult full operative report of the attending physician for description of the procedure. TECHNICAL DOCUMENTATION: JOB ID: [id number] [employer]- All Rights Reserved
--- NOTE | 2016-10-31 16:05 | RADIOLOGY REPORT (SQ) ---
EXAM DESCRIPTION: ANKLE RIGHT AP/LATERAL; NO CHG FLUORO COMPLETED DATE/TIME: 10/31/2016 2:38 pm REASON FOR STUDY: RT ANKLE FX COMPARISON: Right ankle films 10/30/2016 FLUOROSCOPY TIME: 0.1 minutes 4 C-arm images are saved to PACS. TECHNIQUE: Intra-operative images acquired during surgical procedure to evaluate progress. NUMBER OF IMAGES: Cine fluoroscopic images. LIMITATIONS: None. FINDINGS: Intra procedural imaging and fluoro during ORIF of a distal right fibular fracture with go od alignment at the fracture site. Please see the operative report for further details IMPRESSION: Intra procedural imaging and fluoro COMMENT: Quality ID [id number]: Final reports for procedures using fluoroscopy that document radiation exp osure indices, or exposure time and number of fluorographic images (if radiation exposure indices are not available) Please consult full operative report of the attending physician for description of the procedure. TECHNICAL DOCUMENTATION: JOB ID: [id number] [employer]- All Rights Reserved
[2016-10-31] MEDS ORDERED: CEFAZOLIN 1 GM/D5W RTU 0 GM/0 ML RTUPB IV ONE (17:06)
[2016-10-31] MEDS: CEFAZOLIN 2 GM/D5W RTU 2 GM/50 ML RTUPB IV SCH (17:21)
[2016-10-31] MEDS ORDERED: ZOLPIDEM TARTRATE 5 MG TABLET PO SCH (22:00)
[2016-10-31] MEDS ORDERED: DULOXETINE HCL 20 MG CAPSULE.DR PO SCH (22:00)
[2016-10-31] MEDS: ZONISAMIDE 100 MG CAPSULE PO SCH (22:29)
[2016-10-31] MEDS: SERTRALINE HCL 50 MG TABLET PO SCH (22:30)
[2016-10-31] MEDS: TRAZODONE HCL 50 MG TABLET PO SCH (22:31)
[2016-10-31] MEDS: TIZANIDINE HCL 4 MG TABLET PO SCH (22:31)
[2016-11-01] MEDS: CEFAZOLIN 2 GM/D5W RTU 2 GM/50 ML RTUPB IV SCH (02:53)
[2016-11-01] MEDS: MORPHINE SULFATE 10 MG/ML INJ IV PRN ×4 (03:50→21:49)
[2016-11-01 05:01] LABS: ABSOLUTE LYMPHOCYTES (AUTO) 0.8 10^3/uL (0.5-4.7); ABSOLUTE MONOCYTES (AUTO) 0.7 10^3/uL (0.1-1.4); ABSOLUTE NEUT (AUTO) 5.1 10^3/uL (1.7-8.2); BASOPHILS % (AUTO) 0.4 % (0-2); EOSINOPHILS % (AUTO) 0.5 % (0-6); HEMATOCRIT 26.8 % (36.0-47.0); HGB HCT DIFFERENCE -0.4; LYMPHOCYTES % (AUTO) 12.4 % (13-45); MEAN CORPUSCULAR HEMOGLOBIN 28.6 pg (27.0-33.4); MEAN CORPUSCULAR VOLUME 87 fl (80-97); MONOCYTES % (AUTO) 10.3 % (3-13); RED BLOOD COUNT 3.09 10^6/uL (3.72-5.28); RED CELL DISTRIBUTION WIDTH 14.4 % (11.5-14.0); SEGMENTED NEUTROPHILS % (AUTO) 76.4 % (42-78); WHITE BLOOD COUNT 6.7 10^3/uL (4.0-10.5)
[2016-11-01 05:17] LABS: ANION GAP 9 (5-19); BLOOD UREA NITROGEN 10 mg/dL (7-20); CALCIUM 8.8 mg/dL (8.4-10.2); CARBON DIOXIDE 24 mmol/L (22-30); CHLORIDE 102 mmol/L (98-107); CREATININE RESULT 0.69 mg/dL (0.52-1.25); GLUCOSE 129 mg/dL (75-110); POTASSIUM 4.2 mmol/L (3.6-5.0); SODIUM 135.1 mmol/L (137-145)
[2016-11-01 05:32] LABS: HEMOGLOBIN 8.8 g/dL (12.0-15.5)
[2016-11-01] MEDS ORDERED: NYSTATIN TOPICAL POWDER 15 GM TP PRN (08:28)
[2016-11-01] MEDS: ENOXAPARIN SODIUM INJ 40 MG/0.4 ML DISP.SYRIN SUBCUT SCH (10:33)
[2016-11-01] MEDS: OXYCODONE HCL SR 10 MG TABLET PO SCH ×2 (10:34→17:22)
[2016-11-01] MEDS: FUROSEMIDE 20 MG TABLET PO SCH (10:35)
[2016-11-01] MEDS: FERROUS SULFATE 325 MG TABLET PO SCH (10:36)
[2016-11-01] MEDS: CETIRIZINE 10 MG TABLET PO SCH (10:36)
[2016-11-01] MEDS: VALSARTAN 80 MG TABLET PO SCH (10:36)
[2016-11-01] MEDS: ATORVASTATIN CALCIUM 40 MG TABLET PO SCH (10:37)
[2016-11-01] MEDS: CHOLECALCIFEROL (D3) 1,000 UNIT TABLET PO SCH (10:37)
--- NOTE | 2016-11-01 15:09 | PDOC PROGRESS REPORT ---
Subjective Progress Note for:: 11/01/16 Subjective:: Patient has no complaints. Patient denies fever, chills, headache, new focal weakness, chest pain, shortness of breath, abdominal pain, nausea, vomiting, diarrhea, constipation. Physical Exam Vital Signs: Temp Pulse Resp BP Pulse Ox 98.2 F 85 12 119/61 91 L 11/01/16 08:23 11/01/16 08:23 11/01/16 08:23 11/01/16 08:23 11/01/16 08:23 Intake & Output 10/31/16 11/01/16 11/02/16 06:59 06:59 06:59 Intake Total 1215 5870 Output Total 1000 3915 Balance 215 1955 Weight 119.7 kg 125.1 kg GENERAL: No acute distress HEENT: Conjunctiva clear, nonicteric, moist mucous membranes, no JVD, midline trachea RESPIRATORY: Clear to auscultation bilaterally, no wheezes, no rhonchi CARDIAC: Regular rate and rhythm, no murmurs/gallops/rubs ABDOMEN: Soft, nondistended, nontender, positive bowel sounds, no rebound, no guarding EXTREMETIES: Pressure dressing to right lower extremity NEUROLOGIC: Alert, oriented to person/place/time, CN's grossly intact, no focal deficits SKIN: No rash, wounds PSYCH: Normal mood, normal affect Results Laboratory Results: 11/01/16 04:15 11/01/16 04:15 11/01/16 11/01/16 04:15 04:15 WBC 6.7 RBC 3.09 L Hgb 8.8 L D Hct 26.8 L MCV 87 MCH 28.6 MCHC 33.0 RDW 14.4 H Plt Count 148 L Seg Neutrophils % 76.4 Lymphocytes % 12.4 L Monocytes % 10.3 Eosinophils % 0.5 Basophils % 0.4 Absolute Neutrophils 5.1 Absolute Lymphocytes 0.8 Absolute Monocytes 0.7 Absolute Eosinophils 0.0 Absolute Basophils 0.0 Sodium 135.1 L Potassium 4.2 Chloride 102 Carbon Dioxide 24 Anion Gap 9 BUN 10 Creatinine 0.69 Est GFR ( Amer) > 60 Est GFR (Non-Af Amer) > 60 Glucose 129 H Calcium 8.8 Impressions: Knee X-Ray 10/30/16 10:30 IMPRESSION: Total knee arthroplasty with a vertically-oriented oblique fracture of the femoral metaphysis Chest X-Ray 10/30/16 13:10 IMPRESSION: NO ACUTE RADIOGRAPHIC FINDING IN THE CHEST. Ankle X-Ray 10/31/16 00:00 IMPRESSION: Intra procedural imaging and fluoro Femur X-Ray 10/31/16 00:00 IMPRESSION: Intra procedural imaging and fluoro Fluoroscopy 10/31/16 00:00 IMPRESSION: Intra procedural imaging and fluoro Assessment & Plan - Diagnosis (1) Fracture of distal femur Qualifiers: Encounter type: initial encounter Fracture type: closed Fracture morphology: unspecified fracture morphology Laterality: right Qualified Code(s): S72.401A - Unspecified fracture of lower end of right femur, initial encounter for closed fracture Is this a current diagnosis for this admission?: YesPlan: Dr. Ocampo performed ORIF on 10/31/16. Toe-touch weightbearing per ortho. As needed pain medicine. (2) Fracture dislocation of right ankle Qualifiers: Encounter type: initial encounter Fracture type: closed Qualified Code(s): S82.891A - Other fracture of right lower leg, initial encounter for closed fracture Is this a current diagnosis for this admission?: YesPlan: Dr. Ocampo performed ORIF on 10/31/16. (3) Hypertension Is this a current diagnosis for this admission?: YesPlan: Valsartan. As needed IV hydralazine. (4) Anemia Is this a current diagnosis for this admission?: YesPlan: Precipitous drop in hemoglobin secondary to surgery. Patient reports history of anemia secondary to iron deficiency and B12 deficiency. Check baseline labs. Monitor H&H on DVT prophylaxis. (5) B12 deficiency Is this a current diagnosis for this admission?: YesPlan: Patient had monthly B12 injection on 10/29/2016. (6) Chronic pain Is this a current diagnosis for this admission?: YesPlan: Patient has chronic pain left lower extremity for which she has been extensively evaluated by orthopedics as an outpatient. She was started on Cymbalta as an outpatient.
[2016-11-01] MEDS: ZONISAMIDE 100 MG CAPSULE PO SCH (21:38)
[2016-11-01] MEDS: DULOXETINE HCL 30 MG CAPSULE.DR PO SCH (21:38)
[2016-11-01] MEDS: TRAZODONE HCL 50 MG TABLET PO SCH (21:38)
[2016-11-01] MEDS: SERTRALINE HCL 50 MG TABLET PO SCH (21:38)
[2016-11-01] MEDS: TIZANIDINE HCL 4 MG TABLET PO SCH (21:39)
[2016-11-02 04:45] LABS: ABSOLUTE BASOPHILS # (AUTO) 0.1 10^3/uL (0.0-0.2); ABSOLUTE EOSINOPHILS # (AUTO) 0.2 10^3/uL (0.0-0.6); ABSOLUTE LYMPHOCYTES (AUTO) 0.8 10^3/uL (0.5-4.7); ABSOLUTE MONOCYTES (AUTO) 0.7 10^3/uL (0.1-1.4); ABSOLUTE NEUT (AUTO) 5.8 10^3/uL (1.7-8.2); BASOPHILS % (AUTO) 0.9 % (0-2); EOSINOPHILS % (AUTO) 2.9 % (0-6); HEMOGLOBIN 8.2 g/dL (12.0-15.5); HGB HCT DIFFERENCE -0.4; LYMPHOCYTES % (AUTO) 11.1 % (13-45); MEAN CORPUSCULAR HEMOGLOBIN 28.7 pg (27.0-33.4); MEAN CORPUSCULAR HGB CONC 32.9 g/dL (32.0-36.0); MEAN CORPUSCULAR VOLUME 87 fl (80-97); MONOCYTES % (AUTO) 9.1 % (3-13); RED BLOOD COUNT 2.86 10^6/uL (3.72-5.28); RED CELL DISTRIBUTION WIDTH 14.1 % (11.5-14.0); WHITE BLOOD COUNT 7.6 10^3/uL (4.0-10.5)
[2016-11-02 05:09] LABS: ANION GAP 11 (5-19); BLOOD UREA NITROGEN 19 mg/dL (7-20); CALCIUM 8.8 mg/dL (8.4-10.2); CARBON DIOXIDE 25 mmol/L (22-30); CHLORIDE 100 mmol/L (98-107); CREATININE RESULT 1.24 mg/dL (0.52-1.25); GLUCOSE 117 mg/dL (75-110); POTASSIUM 3.8 mmol/L (3.6-5.0); SODIUM 136.4 mmol/L (137-145)
[2016-11-02] MEDS: MORPHINE SULFATE 10 MG/ML INJ IV PRN ×3 (06:30→20:17)
[2016-11-02] MEDS ORDERED: HYDRALAZINE HCL INJ/PF 20 MG/1 ML SDV IV PRN (07:58)
[2016-11-02] MEDS ORDERED: ONDANSETRON HCL INJ/PF 4 MG/2 ML SDV IV PRN (07:59)
[2016-11-02] MEDS: FUROSEMIDE 20 MG TABLET PO SCH (09:02)
[2016-11-02] MEDS: ATORVASTATIN CALCIUM 40 MG TABLET PO SCH (09:05)
[2016-11-02] MEDS: FERROUS SULFATE 325 MG TABLET PO SCH ×2 (09:05→17:15)
[2016-11-02] MEDS: CETIRIZINE 10 MG TABLET PO SCH (09:05)
[2016-11-02] MEDS: CHOLECALCIFEROL (D3) 1,000 UNIT TABLET PO SCH (09:05)
[2016-11-02] MEDS: OXYCODONE HCL SR 10 MG TABLET PO SCH ×2 (09:06→21:41)
[2016-11-02] MEDS: VALSARTAN 80 MG TABLET PO SCH (09:06)
--- NOTE | 2016-11-02 15:05 | PDOC PROGRESS REPORT ---
Subjective Progress Note for:: 11/02/16 Subjective:: Complaining primarily of right knee pain Physical Exam Vital Signs: Temp Pulse Resp BP Pulse Ox 36.8 C 102 H 16 106/61 96 11/02/16 11:16 11/02/16 11:16 11/02/16 11:16 11/02/16 11:16 11/02/16 11:16 Intake & Output 11/01/16 11/02/16 11/03/16 06:59 06:59 06:59 Intake Total 5885 2131 Output Total 9063 4877 Balance 1955 -191 Weight 125.1 kg 119.8 kg General appearance: PRESENT: mild distress Head exam: PRESENT: normocephalic Eye exam: PRESENT: EOMI Respiratory exam: PRESENT: unlabored Cardiovascular exam: PRESENT: RRR Vascular exam: PRESENT: normal capillary refill GI/Abdominal exam: PRESENT: soft Rectal exam: PRESENT: deferred Extremities exam: PRESENT: other - Right lower extremity dressings taken down. Lateral malleolar incision is well approximated without drainage or erythema. Anterior knee incision is well approximated without erythema or drainage. 2 small lateral incisions for the interlocking screws likewise are well approximated. Neurological exam: PRESENT: alert, awake, oriented to person, oriented to place , oriented to time, oriented to situation, CN II-XII grossly intact. ABSENT: motor sensory deficit Psychiatric exam: PRESENT: appropriate affect, normal mood. ABSENT: homicidal ideation, suicidal ideation Skin exam: PRESENT: dry, intact, warm. ABSENT: cyanosis, rash Results Laboratory Results: 11/02/16 04:12 11/02/16 04:12 11/02/16 11/02/16 04:12 04:12 WBC 7.6 RBC 2.86 L Hgb 8.2 L Hct 25.0 L MCV 87 MCH 28.7 MCHC 32.9 RDW 14.1 H Plt Count 139 L Seg Neutrophils % 76.0 Lymphocytes % 11.1 L Monocytes % 9.1 Eosinophils % 2.9 Basophils % 0.9 Absolute Neutrophils 5.8 Absolute Lymphocytes 0.8 Absolute Monocytes 0.7 Absolute Eosinophils 0.2 Absolute Basophils 0.1 Sodium 136.4 L Potassium 3.8 Chloride 100 Carbon Dioxide 25 Anion Gap 11 BUN 19 Creatinine 1.24 Est GFR ( Amer) 55 L Est GFR (Non-Af Amer) 45 L Glucose 117 H Calcium 8.8 Impressions: Knee X-Ray 10/30/16 10:30 IMPRESSION: Total knee arthroplasty with a vertically-oriented oblique fracture of the femoral metaphysis Chest X-Ray 10/30/16 13:10 IMPRESSION: NO ACUTE RADIOGRAPHIC FINDING IN THE CHEST. Ankle X-Ray 10/31/16 00:00 IMPRESSION: Intra procedural imaging and fluoro Femur X-Ray 10/31/16 00:00 IMPRESSION: Intra procedural imaging and fluoro Fluoroscopy 10/31/16 00:00 IMPRESSION: Intra procedural imaging and fluoro Status: Imported from PACS Assessment & Plan - Diagnosis (1) Fracture dislocation of right ankle Qualifiers: Encounter type: initial encounter Fracture type: closed Qualified Code(s): S82.891A - Other fracture of right lower leg, initial encounter for closed fracture Is this a current diagnosis for this admission?: YesPlan: 51-year-old white female status post open reduction internal fixation of lateral malleolar fracture, distal femur fracture, and revision of the total knee arthroplasty. Immobilize the patient on a touchdown weightbearing restriction (2) Fracture of distal femur Qualifiers: Encounter type: initial encounter Fracture type: closed Fracture morphology: unspecified fracture morphology Laterality: right Qualified Code(s): S72.401A - Unspecified fracture of lower end of right femur, initial encounter for closed fracture Is this a current diagnosis for this admission?: Yes - Time Time Spent with patient: 15-24 minutes Anticipated discharge: Home with Homehealth Within: within 48 hours
[2016-11-02] MEDS ORDERED: MAGNESIUM CITRATE 296 ML BOTTLE PO ONE (15:45)
--- NOTE | 2016-11-02 16:24 | PDOC PROGRESS REPORT ---
Subjective Progress Note for:: 11/02/16 Subjective:: Patient has no complaints. Patient denies fever, chills, headache, new focal weakness, chest pain, shortness of breath, abdominal pain, nausea, vomiting, diarrhea, constipation. Physical Exam Vital Signs: Temp Pulse Resp BP Pulse Ox 98.1 F 102 H 15 112/63 93 11/02/16 15:52 11/02/16 15:52 11/02/16 15:52 11/02/16 15:52 11/02/16 15:52 Intake & Output 11/01/16 11/02/16 11/03/16 06:59 06:59 06:59 Intake Total 5805 0594 Output Total 3916 2345 Balance 1954 - Weight 125.1 kg 119.8 kg GENERAL: No acute distress HEENT: Conjunctiva clear, nonicteric, moist mucous membranes, no JVD, midline trachea RESPIRATORY: Clear to auscultation bilaterally, no wheezes, no rhonchi CARDIAC: Regular rate and rhythm, no murmurs/gallops/rubs ABDOMEN: Soft, nondistended, nontender, positive bowel sounds, no rebound, no guarding EXTREMETIES: Significant ecchymosis noted over right lower extremity NEUROLOGIC: Alert, oriented to person/place/time, CN's grossly intact, no focal deficits SKIN: Incisions on right lower extremity intact with no sign of infection PSYCH: Normal mood, normal affect Results Laboratory Results: 11/02/16 04:12 11/02/16 04:12 11/02/16 11/02/16 04:12 04:12 WBC 7.6 RBC 2.86 L Hgb 8.2 L Hct 25.0 L MCV 87 MCH 28.7 MCHC 32.9 RDW 14.1 H Plt Count 139 L Seg Neutrophils % 76.0 Lymphocytes % 11.1 L Monocytes % 9.1 Eosinophils % 2.9 Basophils % 0.9 Absolute Neutrophils 5.8 Absolute Lymphocytes 0.8 Absolute Monocytes 0.7 Absolute Eosinophils 0.2 Absolute Basophils 0.1 Sodium 136.4 L Potassium 3.8 Chloride 100 Carbon Dioxide 25 Anion Gap 11 BUN 19 Creatinine 1.24 Est GFR ( Amer) 55 L Est GFR (Non-Af Amer) 45 L Glucose 117 H Calcium 8.8 Impressions: Knee X-Ray 10/30/16 10:30 IMPRESSION: Total knee arthroplasty with a vertically-oriented oblique fracture of the femoral metaphysis Chest X-Ray 10/30/16 13:10 IMPRESSION: NO ACUTE RADIOGRAPHIC FINDING IN THE CHEST. Ankle X-Ray 10/31/16 00:00 IMPRESSION: Intra procedural imaging and fluoro Femur X-Ray 10/31/16 00:00 IMPRESSION: Intra procedural imaging and fluoro Fluoroscopy 10/31/16 00:00 IMPRESSION: Intra procedural imaging and fluoro Assessment & Plan - Diagnosis (1) Fracture of distal femur Qualifiers: Encounter type: initial encounter Fracture type: closed Fracture morphology: unspecified fracture morphology Laterality: right Qualified Code(s): S72.401A - Unspecified fracture of lower end of right femur, initial encounter for closed fracture Is this a current diagnosis for this admission?: Yes (2) Fracture dislocation of right ankle Qualifiers: Encounter type: initial encounter Fracture type: closed Qualified Code(s): S82.891A - Other fracture of right lower leg, initial encounter for closed fracture Is this a current diagnosis for this admission?: Yes (3) Hypertension Is this a current diagnosis for this admission?: Yes (4) Anemia Is this a current diagnosis for this admission?: YesPlan: Precipitous drop in hemoglobin secondary to surgery. Patient reports history of anemia secondary to iron deficiency and B12 deficiency. Check baseline labs. Discontinue Lovenox. Increase iron supplement to twice daily. (5) B12 deficiency Is this a current diagnosis for this admission?: YesPlan: Patient had monthly B12 injection on 10/29/2016. (6) Chronic pain Is this a current diagnosis for this admission?: YesPlan: Patient has chronic pain left lower extremity for which she has been extensively evaluated by orthopedics as an outpatient. She was started on Cymbalta as an outpatient. (7) Thrombocytopenia Is this a current diagnosis for this admission?: YesPlan: Discontinue Lovenox. - Time Time Spent with patient: 25-34 minutes
[2016-11-02] MEDS: ACETAMINOPHEN 325 MG TABLET PO PRN (17:15)
[2016-11-02] MEDS: TRAZODONE HCL 50 MG TABLET PO SCH (21:40)
[2016-11-02] MEDS: SERTRALINE HCL 50 MG TABLET PO SCH (21:40)
[2016-11-02] MEDS: DULOXETINE HCL 30 MG CAPSULE.DR PO SCH (21:40)
[2016-11-02] MEDS: ZONISAMIDE 100 MG CAPSULE PO SCH (21:41)
[2016-11-02] MEDS: TIZANIDINE HCL 4 MG TABLET PO SCH (21:41)
[2016-11-03] MEDS: MORPHINE SULFATE 10 MG/ML INJ IV PRN (05:14)
[2016-11-03] MEDS ORDERED: BISACODYL 10 MG SUPP.RECT PR ONE (07:00)
--- NOTE | 2016-11-03 07:13 | PDOC DISCHARGE SUMMARY ---
General - Admit/Disc Date/PCP Admission Date/Primary Care Provider: 10/30/16 13:05 Discharge Date: 11/03/16 - Discharge Diagnosis (1) Fracture dislocation of right ankle Is this a current diagnosis for this admission?: Yes (2) Fracture of distal femur Is this a current diagnosis for this admission?: Yes - Additional Information Resuscitation Status: Full Code Discharge Diet: As Tolerated, Regular Discharge Activity: Balance Activity w/Rest, No Driving, No tub bath Home Medications: Cetirizine HCl [Zyrtec 10 mg Tablet] 1 tab PO DAILY 10/30/16 Cholecalciferol (Vitamin D3) [Vitamin D3 2000 unit Tablet] 2,000 unit PO DAILY 10/30/16 Duloxetine HCl [Cymbalta 20 mg Capsule.dr] 30 mg PO QHS 10/30/16 Eletriptan HBr [Relpax] 40 mg PO DAILYP PRN 10/30/16 Ferrous Sulfate [Feosol 325 mg Tablet] 325 mg PO DAILY 10/30/16 Furosemide [Lasix 20 mg Tablet] 20 mg PO DAILY 10/30/16 Rosuvastatin Calcium [Crestor 20 mg Tablet] 20 mg PO DAILY 10/30/16 Sertraline HCl [Zoloft 50 mg Tablet] 50 mg PO QHS 10/30/16 Tizanidine HCl [Zanaflex] 2 mg PO QHS 10/30/16 Trazodone HCl [Desyrel 50 mg Tablet] 100 mg PO QHS 10/30/16 Valsartan [Diovan 80 mg Tablet] 80 mg PO DAILY 10/30/16 Zolmitriptan [Zomig] 5 mg PO BIDP PRN 10/30/16 Zonisamide [Zonegran 100 mg Capsule] 200 mg PO QHS 10/30/16 Nystatin [Mycostatin Topical Powder 15 gm] 1 applic TP PRN PRN #0 bottle Oxycodone HCl [Oxy-Ir 5 mg Tablet] 5 mg PO Q6HP PRN #0 tablet 11/03/16 History of Present Illness Patient complains of: Patient is a 51-year-old female who presents to the emergency room status post a fall with inability to bear weight on the right lower extremity. Evaluation reveals a right lateral malleolus fracture, right distal femur fracture, patient reports that her knee which is prosthetic frequently gives way and led to this fall. History of Present Illness: Patient is a 51-year-old white female who fell sustaining right lower extremity injuries. Hospital Course Hospital Course: Patient was admitted through the emergency room and subsequently taken to the operating room. She underwent an open reduction and internal fixation of her right lateral malleolus fracture, right distal femur fracture, and a revision of her knee arthroplasty. She tolerated this without complications return to the floor in satisfactory condition. She is making excellent progress with mobility using a walker and touchdown weightbearing restriction. Physical Exam Vital Signs: Temp Pulse Resp BP Pulse Ox 37.3 C 93 18 97/47 L 96 11/02/16 23:00 11/02/16 23:00 11/02/16 23:00 11/02/16 23:00 11/02/16 23:00 Intake & Output 11/02/16 11/03/16 11/04/16 06:59 06:59 06:59 Intake Total 2084 1945 Output Total 8886 3150 Balance -191 -1205 Weight 119.8 kg 118.5 kg General appearance: PRESENT: morbidly obese Head exam: PRESENT: normocephalic Eye exam: PRESENT: EOMI Respiratory exam: PRESENT: unlabored Cardiovascular exam: PRESENT: RRR Vascular exam: PRESENT: normal capillary refill Extremities exam: PRESENT: other - Right lower extremity dressings are clean dry and intact. Distal neurovascular examination is intact. Neurological exam: PRESENT: alert, awake, oriented to person, oriented to place , oriented to time, oriented to situation, CN II-XII grossly intact. ABSENT: motor sensory deficit Psychiatric exam: PRESENT: appropriate affect, normal mood. ABSENT: homicidal ideation, suicidal ideation Skin exam: PRESENT: other Results Laboratory Results: 11/02/16 04:12 11/02/16 04:12 Impressions: Knee X-Ray 10/30/16 10:30 IMPRESSION: Total knee arthroplasty with a vertically-oriented oblique fracture of the femoral metaphysis Chest X-Ray 10/30/16 13:10 IMPRESSION: NO ACUTE RADIOGRAPHIC FINDING IN THE CHEST. Ankle X-Ray 10/31/16 00:00 IMPRESSION: Intra procedural imaging and fluoro Femur X-Ray 10/31/16 00:00 IMPRESSION: Intra procedural imaging and fluoro Fluoroscopy 10/31/16 00:00 IMPRESSION: Intra procedural imaging and fluoro Status: Imported from PACS Plan Discharge Plan: Follow-up with Dr. Ocampo in the [facility] for surgery in 2 weeks for staple removal. Patient to be discharged home with home health nursing, home health physical therapy, paco ng, bedside commode. Time Spent: Less than 30 Minutes
[2016-11-03 07:43] LABS: ANION GAP 10 (5-19); BLOOD UREA NITROGEN 15 mg/dL (7-20); CALCIUM 8.8 mg/dL (8.4-10.2); CARBON DIOXIDE 28 mmol/L (22-30); CHLORIDE 99 mmol/L (98-107); CREATININE RESULT 0.81 mg/dL (0.52-1.25); GLUCOSE 116 mg/dL (75-110); POTASSIUM 4.7 mmol/L (3.6-5.0); SODIUM 136.9 mmol/L (137-145)
[2016-11-03] MEDS: FUROSEMIDE 20 MG TABLET PO SCH (08:42)
[2016-11-03] MEDS: OXYCODONE HCL SR 10 MG TABLET PO SCH ×2 (08:42→21:13)
[2016-11-03] MEDS: CHOLECALCIFEROL (D3) 1,000 UNIT TABLET PO SCH (08:43)
[2016-11-03] MEDS: FERROUS SULFATE 325 MG TABLET PO SCH ×2 (08:43→18:36)
[2016-11-03] MEDS: CETIRIZINE 10 MG TABLET PO SCH (08:43)
[2016-11-03] MEDS: VALSARTAN 80 MG TABLET PO SCH (08:43)
[2016-11-03] MEDS: ATORVASTATIN CALCIUM 40 MG TABLET PO SCH (08:43)
[2016-11-03 09:50] LABS: ABSOLUTE BASOPHILS # (AUTO) 0.1 10^3/uL (0.0-0.2); ABSOLUTE EOSINOPHILS # (AUTO) 0.2 10^3/uL (0.0-0.6); ABSOLUTE LYMPHOCYTES (AUTO) 0.8 10^3/uL (0.5-4.7); ABSOLUTE MONOCYTES (AUTO) 0.7 10^3/uL (0.1-1.4); ABSOLUTE NEUT (AUTO) 4.5 10^3/uL (1.7-8.2); BASOPHILS % (AUTO) 1.1 % (0-2); EOSINOPHILS % (AUTO) 2.9 % (0-6); HEMATOCRIT 24.2 % (36.0-47.0); HGB HCT DIFFERENCE -0.5; LYMPHOCYTES % (AUTO) 13.3 % (13-45); MEAN CORPUSCULAR HEMOGLOBIN 28.6 pg (27.0-33.4); MEAN CORPUSCULAR HGB CONC 32.7 g/dL (32.0-36.0); MEAN CORPUSCULAR VOLUME 87 fl (80-97); MONOCYTES % (AUTO) 10.5 % (3-13); RED BLOOD COUNT 2.77 10^6/uL (3.72-5.28); RED CELL DISTRIBUTION WIDTH 14.1 % (11.5-14.0); SEGMENTED NEUTROPHILS % (AUTO) 72.2 % (42-78); WHITE BLOOD COUNT 6.2 10^3/uL (4.0-10.5)
[2016-11-03 09:56] LABS: HEMOGLOBIN 7.9 g/dL (12.0-15.5)
[2016-11-03] MEDS ORDERED: NORMAL SALINE 250 ML IV PRN ×2 (09:58)
[2016-11-03] MEDS ORDERED: FUROSEMIDE 20 MG TABLET PO PRN (09:58)
[2016-11-03] MEDS: ACETAMINOPHEN 325 MG TABLET PO PRN ×2 (11:11→20:28)
[2016-11-03] MEDS ORDERED: FAMOTIDINE INJ/PF 20 MG/2 ML SDV IV ONE (13:30)
[2016-11-03] MEDS ORDERED: METOCLOPRAMIDE HCL INJ/PF 10 MG/2 ML SDV IV ONE (13:30)
[2016-11-03] MEDS ORDERED: KETOROLAC TROMETHAMINE INJ/PF 30 MG/1 ML SDV IV ONE (13:30)
[2016-11-03] MEDS ORDERED: DIPHENHYDRAMINE HCL 50 MG/ML VIAL IV ONE (13:30)
[2016-11-03] MEDS ORDERED: BISACODYL 5 MG TABEC PO ONE (17:08)
--- NOTE | 2016-11-03 17:18 | PDOC PROGRESS REPORT ---
Subjective Progress Note for:: 11/03/16 Subjective:: Patient reports that her pain is relatively well controlled. She does report she gets dizzy upon standing. She complains of headache. She reports long history of migraine. Patient does complain of some indigestion. Denies chest pain, shortness of breath, nausea, vomiting, fever, chills, diarrhea. Patient does report significant constipation. Physical Exam Vital Signs: Temp Pulse Resp BP Pulse Ox 98.2 F 101 H 16 117/60 95 11/03/16 15:10 11/03/16 15:10 11/03/16 15:10 11/03/16 15:10 11/03/16 15:10 Intake & Output 11/02/16 11/03/16 11/04/16 06:59 06:59 06:59 Intake Total 2082 1945 0 Output Total 2275 3150 Balance -191 -1205 0 Weight 119.8 kg 118.5 kg Exam: GENERAL: Awake, alert, oriented 3 no acute distress HEENT: Conjunctiva clear, nonicteric, moist mucous membranes, no JVD, midline trachea RESPIRATORY: Clear to auscultation bilaterally, no wheezes, no rhonchi CARDIAC: Regular rate and rhythm, no murmurs/gallops/rubs ABDOMEN: Soft, nondistended, nontender, active bowel sounds, no rebound, no guarding EXTREMETIES: Extensive ecchymosis noted over right lower extremity, waffle dressing with sanguinous drainage NEUROLOGIC: Alert, oriented to person/place/time, CN's grossly intact, no focal deficits SKIN: Incisions on right lower extremity healing PSYCH: Normal mood, normal affect Results Laboratory Results: 11/03/16 09:11 11/03/16 06:01 11/03/16 11/03/16 11/03/16 06:01 06:01 09:11 WBC Cancelled 6.2 RBC Cancelled 2.77 L Hgb Cancelled 7.9 L Hct Cancelled 24.2 L MCV Cancelled 87 MCH Cancelled 28.6 MCHC Cancelled 32.7 RDW Cancelled 14.1 H Plt Count Cancelled 195 Seg Neutrophils % Cancelled 72.2 Lymphocytes % Cancelled 13.3 Monocytes % Cancelled 10.5 Eosinophils % Cancelled 2.9 Basophils % Cancelled 1.1 Absolute Neutrophils Cancelled 4.5 Absolute Lymphocytes Cancelled 0.8 Absolute Monocytes Cancelled 0.7 Absolute Eosinophils Cancelled 0.2 Absolute Basophils Cancelled 0.1 Sodium 136.9 L Potassium 4.7 Chloride 99 Carbon Dioxide 28 Anion Gap 10 BUN 15 Creatinine 0.81 Est GFR ( Amer) > 60 Est GFR (Non-Af Amer) > 60 Glucose 116 H Calcium 8.8 Blood Type Antibody Screen 11/03/16 11:39 WBC RBC Hgb Hct MCV MCH MCHC RDW Plt Count Seg Neutrophils % Lymphocytes % Monocytes % Eosinophils % Basophils % Absolute Neutrophils Absolute Lymphocytes Absolute Monocytes Absolute Eosinophils Absolute Basophils Sodium Potassium Chloride Carbon Dioxide Anion Gap BUN Creatinine Est GFR ( Amer) Est GFR (Non-Af Amer) Glucose Calcium Blood Type A POSITIVE Antibody Screen NEGATIVE Impressions: Knee X-Ray 10/30/16 10:30 IMPRESSION: Total knee arthroplasty with a vertically-oriented oblique fracture of the femoral metaphysis Chest X-Ray 10/30/16 13:10 IMPRESSION: NO ACUTE RADIOGRAPHIC FINDING IN THE CHEST. Ankle X-Ray 10/31/16 00:00 IMPRESSION: Intra procedural imaging and fluoro Femur X-Ray 10/31/16 00:00 IMPRESSION: Intra procedural imaging and fluoro Fluoroscopy 10/31/16 00:00 IMPRESSION: Intra procedural imaging and fluoro Assessment & Plan - Diagnosis (1) Acute blood loss anemia Is this a current diagnosis for this admission?: YesPlan: Patient has acute blood loss anemia secondary to fracture of the long bone. Will give 1 unit of packed red blood cells today and monitor for stability. (2) Iron deficiency anemia following bariatric surgery Is this a current diagnosis for this admission?: YesPlan: Continue oral iron replacement (3) Migraine Qualifiers: Migraine type: without aura Status migrainosus presence: without status migrainosus Intractability: not intractable Qualified Code(s) : G43.009 - Migraine without aura, not intractable, without status migrainosus Is this a current diagnosis for this admission?: YesPlan: We will give patient IV Toradol, Reglan, and Benadryl and if this persists have encouraged patient to use her home medications. (4) B12 deficiency Is this a current diagnosis for this admission?: YesPlan: B12 repletion (5) Chronic pain Qualifiers: Chronic pain type: other chronic pain Qualified Code(s): G89.29 - Other chronic pain Is this a current diagnosis for this admission?: YesPlan: Sports IV morphine works best for her pain. Have initiated patient on OxyContin and will resume oral oxycodone. (6) Fracture dislocation of right ankle Qualifiers: Encounter type: initial encounter Fracture type: closed Qualified Code(s): S82.891A - Other fracture of right lower leg, initial encounter for closed fracture Is this a current diagnosis for this admission?: YesPlan: Status post ORIF of this ankle. (7) Fracture of distal femur Qualifiers: Encounter type: initial encounter Fracture type: closed Fracture morphology: unspecified fracture morphology Laterality: right Qualified Code(s): S72.401A - Unspecified fracture of lower end of right femur, initial encounter for closed fracture Is this a current diagnosis for this admission?: Yes - Time Time Spent with patient: 25-34 minutes Medications reviewed and adjusted accordingly: Yes Anticipated discharge: Home with Homehealth Within: within 48 hours
[2016-11-03] MEDS ORDERED: DIPHENHYDRAMINE HCL 25 MG CAPSULE PO PRN (17:20)
[2016-11-03] MEDS: TRAMADOL HCL 50 MG TABLET PO PRN (19:35)
[2016-11-03] MEDS: ZONISAMIDE 100 MG CAPSULE PO SCH (21:13)
[2016-11-03] MEDS: FAMOTIDINE 20 MG TABLET PO SCH (21:13)
[2016-11-03] MEDS: SERTRALINE HCL 50 MG TABLET PO SCH (21:13)
[2016-11-03] MEDS: TRAZODONE HCL 50 MG TABLET PO SCH (21:13)
[2016-11-03] MEDS: TIZANIDINE HCL 4 MG TABLET PO SCH (21:13)
[2016-11-03] MEDS: DULOXETINE HCL 30 MG CAPSULE.DR PO SCH (21:13)
[2016-11-03 22:21] LABS: ABSOLUTE BASOPHILS # (AUTO) 0.1 10^3/uL (0.0-0.2); ABSOLUTE EOSINOPHILS # (AUTO) 0.2 10^3/uL (0.0-0.6); ABSOLUTE MONOCYTES (AUTO) 0.7 10^3/uL (0.1-1.4); ABSOLUTE NEUT (AUTO) 3.9 10^3/uL (1.7-8.2); BASOPHILS % (AUTO) 1.1 % (0-2); EOSINOPHILS % (AUTO) 3.8 % (0-6); LYMPHOCYTES % (AUTO) 17.8 % (13-45); MEAN CORPUSCULAR HEMOGLOBIN 28.6 pg (27.0-33.4); MEAN CORPUSCULAR HGB CONC 33.2 g/dL (32.0-36.0); MEAN CORPUSCULAR VOLUME 86 fl (80-97); MONOCYTES % (AUTO) 11.3 % (3-13); RED BLOOD COUNT 2.79 10^6/uL (3.72-5.28); RED CELL DISTRIBUTION WIDTH 13.8 % (11.5-14.0); WHITE BLOOD COUNT 5.8 10^3/uL (4.0-10.5)
--- NOTE | 2016-11-04 07:11 | PDOC PROGRESS REPORT ---
Subjective Progress Note for:: 11/04/16 Subjective:: Patient with minor complaints Physical Exam Vital Signs: Temp Pulse Resp BP Pulse Ox 36.7 C 81 18 93/47 L 93 11/03/16 23:00 11/03/16 23:00 11/03/16 23:00 11/03/16 23:00 11/03/16 23:00 Intake & Output 11/03/16 11/04/16 11/05/16 06:59 06:59 06:59 Intake Total 1945 2270 Output Total 3150 1400 Balance -1205 870 Weight 118.5 kg 118.2 kg Extremities exam: PRESENT: other - Lower extremity dressings clean dry and intact Results Laboratory Results: 11/03/16 22:09 11/03/16 06:01 11/03/16 11/03/16 11/03/16 06:01 06:01 09:11 WBC Cancelled 6.2 RBC Cancelled 2.77 L Hgb Cancelled 7.9 L Hct Cancelled 24.2 L MCV Cancelled 87 MCH Cancelled 28.6 MCHC Cancelled 32.7 RDW Cancelled 14.1 H Plt Count Cancelled 195 Seg Neutrophils % Cancelled 72.2 Lymphocytes % Cancelled 13.3 Monocytes % Cancelled 10.5 Eosinophils % Cancelled 2.9 Basophils % Cancelled 1.1 Absolute Neutrophils Cancelled 4.5 Absolute Lymphocytes Cancelled 0.8 Absolute Monocytes Cancelled 0.7 Absolute Eosinophils Cancelled 0.2 Absolute Basophils Cancelled 0.1 Sodium 136.9 L Potassium 4.7 Chloride 99 Carbon Dioxide 28 Anion Gap 10 BUN 15 Creatinine 0.81 Est GFR ( Amer) > 60 Est GFR (Non-Af Amer) > 60 Glucose 116 H Calcium 8.8 Blood Type Antibody Screen 11/03/16 11/03/16 11:39 22:09 WBC 5.8 RBC 2.79 L Hgb 8.0 L Hct 24.0 L MCV 86 MCH 28.6 MCHC 33.2 RDW 13.8 Plt Count 186 Seg Neutrophils % 66.0 Lymphocytes % 17.8 Monocytes % 11.3 Eosinophils % 3.8 Basophils % 1.1 Absolute Neutrophils 3.9 Absolute Lymphocytes 1.0 Absolute Monocytes 0.7 Absolute Eosinophils 0.2 Absolute Basophils 0.1 Sodium Potassium Chloride Carbon Dioxide Anion Gap BUN Creatinine Est GFR ( Amer) Est GFR (Non-Af Amer) Glucose Calcium Blood Type A POSITIVE Antibody Screen NEGATIVE Impressions: Knee X-Ray 10/30/16 10:30 IMPRESSION: Total knee arthroplasty with a vertically-oriented oblique fracture of the femoral metaphysis Chest X-Ray 10/30/16 13:10 IMPRESSION: NO ACUTE RADIOGRAPHIC FINDING IN THE CHEST. Ankle X-Ray 10/31/16 00:00 IMPRESSION: Intra procedural imaging and fluoro Femur X-Ray 10/31/16 00:00 IMPRESSION: Intra procedural imaging and fluoro Fluoroscopy 10/31/16 00:00 IMPRESSION: Intra procedural imaging and fluoro Assessment & Plan - Diagnosis (1) Fracture dislocation of right ankle Qualifiers: Encounter type: initial encounter Fracture type: closed Qualified Code(s): S82.891A - Other fracture of right lower leg, initial encounter for closed fracture Is this a current diagnosis for this admission?: YesPlan: An ambulatory in a touchdown weightbearing restriction. Discharge per hospitalist service. Return to [facility] for surgery to see Dr. Ocampo in 2 weeks. (2) Fracture of distal femur Qualifiers: Encounter type: initial encounter Fracture type: closed Fracture morphology: unspecified fracture morphology Laterality: right Qualified Code(s): S72.401A - Unspecified fracture of lower end of right femur, initial encounter for closed fracture Is this a current diagnosis for this admission?: Yes
[2016-11-04] MEDS: TRAMADOL HCL 50 MG TABLET PO PRN (08:02)
[2016-11-04] MEDS: CETIRIZINE 10 MG TABLET PO SCH (09:45)
[2016-11-04] MEDS: FUROSEMIDE 20 MG TABLET PO SCH (09:45)
[2016-11-04] MEDS: CHOLECALCIFEROL (D3) 1,000 UNIT TABLET PO SCH (09:45)
[2016-11-04] MEDS: FAMOTIDINE 20 MG TABLET PO SCH (09:45)
[2016-11-04] MEDS: VALSARTAN 80 MG TABLET PO SCH (09:47)
[2016-11-04] MEDS: ATORVASTATIN CALCIUM 40 MG TABLET PO SCH (09:48)
[2016-11-04] MEDS: FERROUS SULFATE 325 MG TABLET PO SCH (09:48)
[2016-11-04] MEDS: OXYCODONE HCL SR 10 MG TABLET PO SCH (09:48)
[2016-11-04] MEDS ORDERED: BACITRACIN ZINC OINTMENT 15 GM TP SCH (10:00)
[2016-11-04 12:49] LABS: ABSOLUTE BASOPHILS # (AUTO) 0.1 10^3/uL (0.0-0.2); ABSOLUTE EOSINOPHILS # (AUTO) 0.3 10^3/uL (0.0-0.6); ABSOLUTE MONOCYTES (AUTO) 0.6 10^3/uL (0.1-1.4); ABSOLUTE NEUT (AUTO) 5.3 10^3/uL (1.7-8.2); BASOPHILS % (AUTO) 1.1 % (0-2); EOSINOPHILS % (AUTO) 3.6 % (0-6); HEMATOCRIT 25.6 % (36.0-47.0); HEMOGLOBIN 8.5 g/dL (12.0-15.5); HGB HCT DIFFERENCE -0.1; LYMPHOCYTES % (AUTO) 13.2 % (13-45); MEAN CORPUSCULAR HEMOGLOBIN 28.5 pg (27.0-33.4); MEAN CORPUSCULAR HGB CONC 33.3 g/dL (32.0-36.0); MEAN CORPUSCULAR VOLUME 86 fl (80-97); MONOCYTES % (AUTO) 8.3 % (3-13); RED BLOOD COUNT 2.99 10^6/uL (3.72-5.28); SEGMENTED NEUTROPHILS % (AUTO) 73.8 % (42-78); WHITE BLOOD COUNT 7.2 10^3/uL (4.0-10.5)
[2016-11-04] MEDS ORDERED: MAG HYDROX/AL HYDROX/SIMETH SUSP 30 ML UDCUP PO ONE (13:28)
[2016-11-04] MEDS ORDERED: DIPHENHYDRAMINE HCL 50 MG/ML VIAL IV ONE (13:28)
[2016-11-04] MEDS ORDERED: KETOROLAC TROMETHAMINE INJ/PF 30 MG/1 ML SDV IV ONE (13:28)
[2016-11-04] MEDS ORDERED: METOCLOPRAMIDE HCL ORAL SOLN 10 MG/10 ML UDCUP PO ONE (14:15)
[2016-11-04] MEDS ORDERED: LIDOCAINE 2% VISCOUS SOLN 20 ML UDCUP PO ONE (14:15)
[2016-11-04 15:06] VITALS: BP 93/47
--- NOTE | 2016-11-05 18:50 | PDOC DISCHARGE SUMMARY ---
General - Admit/Disc Date/PCP Admission Date/Primary Care Provider: 10/30/16 13:05 Discharge Date: 11/05/16 - Discharge Diagnosis (1) Acute blood loss anemia Is this a current diagnosis for this admission?: Yes (2) Iron deficiency anemia following bariatric surgery Is this a current diagnosis for this admission?: Yes (3) Migraine Is this a current diagnosis for this admission?: Yes (4) B12 deficiency Is this a current diagnosis for this admission?: Yes (5) Chronic pain Is this a current diagnosis for this admission?: Yes (6) Fracture dislocation of right ankle Is this a current diagnosis for this admission?: Yes (7) Fracture of distal femur Is this a current diagnosis for this admission?: Yes (8) Hypertension Is this a current diagnosis for this admission?: Yes (9) GERD (gastroesophageal reflux disease) Is this a current diagnosis for this admission?: Yes (10) Obesity, morbid, BMI 40.0-49.9 Is this a current diagnosis for this admission?: Yes - Additional Information Resuscitation Status: Full Code Discharge Diet: As Tolerated, Regular Discharge Activity: Balance Activity w/Rest, No Driving, No tub bath Home Medications: Cetirizine HCl [Zyrtec 10 mg Tablet] 1 tab PO DAILY 10/30/16 Cholecalciferol (Vitamin D3) [Vitamin D3 2000 unit Tablet] 2,000 unit PO DAILY 10/30/16 Duloxetine HCl [Cymbalta 20 mg Capsule.dr] 30 mg PO QHS 10/30/16 Eletriptan HBr [Relpax] 40 mg PO DAILYP PRN 10/30/16 Furosemide [Lasix 20 mg Tablet] 20 mg PO DAILY 10/30/16 Rosuvastatin Calcium [Crestor 20 mg Tablet] 20 mg PO DAILY 10/30/16 Sertraline HCl [Zoloft 50 mg Tablet] 50 mg PO QHS 10/30/16 Tizanidine HCl [Zanaflex] 2 mg PO QHS 10/30/16 Trazodone HCl [Desyrel 50 mg Tablet] 100 mg PO QHS 10/30/16 Valsartan [Diovan 80 mg Tablet] 80 mg PO DAILY 10/30/16 Zolmitriptan [Zomig] 5 mg PO BIDP PRN 10/30/16 Zonisamide [Zonegran 100 mg Capsule] 200 mg PO QHS 10/30/16 Nystatin [Mycostatin Topical Powder 15 gm] 1 applic TP PRN PRN #0 bottle Oxycodone HCl [Oxy-Ir 5 mg Tablet] 5 mg PO Q6HP PRN #0 tablet 11/03/16 Docusate Sodium [Colace 100 mg Capsule] 100 mg PO BID #60 capsule 11/04/16 Ferrous Sulfate [Feosol 325 mg Tablet] 325 mg PO BID #60 tablet 11/04/16 Omeprazole Magnesium [Prilosec Otc] 20 mg PO BID #60 tablet. 11/04/16 Sennosides 2 tab PO QHS #60 tablet 11/04/16 History of Present Illness History of Present Illness: CHELSEY ODEN is a 51 year old female with right leg pain status post fall today. Patient has had bilateral total knee arthroplasty in the past. She was found in the emergency department to have right ankle fracture as well as right distal femur fracture just proximal to joint prosthesis. Dr. Ocampo of orthopedics has agreed to manage patient surgically patient is to be admitted to hospitalist service. Patient otherwise was in her usual state of health until she fell. She has no other complaints. Hospital Course Hospital Course: Was admitted to the hospital service and underwent ORIF of the right ankle and ORIF of the right distal femur as well as revision of the tibial implant on the right knee arthroplasty on 10/31/2016. Postoperative course was complicated by acute blood loss anemia. Patient was transfused 1 unit of packed red blood cells. Patient does suffer normally from iron and B12 deficiency anemia due to previous bariatric surgery. Patient also did complain of indigestion and was started on a PPI. She is advised very strongly to follow with her physician in regards to this for upper endoscopy. Patient also suffered from constipation which required several days of cathartics for relief. On day of discharge patient was doing well and stable for discharge home. Physical Exam Vital Signs: Temp Pulse Resp BP Pulse Ox 98.7 F 92 18 93/47 L 93 11/04/16 15:05 11/04/16 15:05 11/04/16 15:05 11/04/16 15:05 11/04/16 15:05 Intake & Output 11/04/16 11/05/16 11/06/16 06:59 06:59 06:59 Intake Total 2270 Output Total 1400 Balance 870 Weight 118.2 kg Exam: GENERAL: Awake, alert, oriented 3 no acute distress HEENT: Conjunctiva clear, nonicteric, moist mucous membranes, no JVD, midline trachea RESPIRATORY: Clear to auscultation bilaterally, no wheezes, no rhonchi CARDIAC: Regular rate and rhythm, no murmurs/gallops/rubs ABDOMEN: Soft, nondistended, nontender, active bowel sounds, no rebound, no guarding EXTREMETIES: Extensive ecchymosis noted over right lower extremity, waffle dressing with sanguinous drainage NEUROLOGIC: Alert, oriented to person/place/time, CN's grossly intact, no focal deficits SKIN: Incisions on right lower extremity healing PSYCH: Normal mood, normal affect Results Laboratory Results: 11/04/16 12:41 11/03/16 06:01 Impressions: Knee X-Ray 10/30/16 10:30 IMPRESSION: Total knee arthroplasty with a vertically-oriented oblique fracture of the femoral metaphysis Chest X-Ray 10/30/16 13:10 IMPRESSION: NO ACUTE RADIOGRAPHIC FINDING IN THE CHEST. Ankle X-Ray 10/31/16 00:00 IMPRESSION: Intra procedural imaging and fluoro Femur X-Ray 10/31/16 00:00 IMPRESSION: Intra procedural imaging and fluoro Fluoroscopy 10/31/16 00:00 IMPRESSION: Intra procedural imaging and fluoro Qualifiers PATEINT BEING DISCHARGED WITH ANY OF THE FOLLOWING DIAGNOSIS?: No Plan Time Spent: Less than 30 Minutes
== END 2016-11-04 16:05 | disposition home health service (06) | DRG 467 ==
LOC: ER 09:29 → EH 11:18 → UNDOADMIN 11:18 → EH 12:33 → 5 12:33
PROC: 0QSJ04Z Reposition Right Fibula with Internal Fixation Device, Open Approach (ICD-10-PCS; 2016-10-31)
PROC: 0QSB04Z Reposition Right Lower Femur with Internal Fixation Device, Open Approach (ICD-10-PCS; 2016-10-31)
PROC: 0SWV0JZ Revision of Synthetic Substitute in Right Knee Joint, Tibial Surface, Open Approach (ICD-10-PCS; principal; 2016-10-31 08:00)
PROC: 30243N1 Transfusion of Nonautologous Red Blood Cells into Central Vein, Percutaneous Approach (ICD-10-PCS; 2016-11-03)
DX: S82.61XA Displaced fracture of lateral malleolus of right fibula, initial encounter for closed fracture (principal); S72.401A Unspecified fracture of lower end of right femur, initial encounter for closed fracture; D62 Acute posthemorrhagic anemia; Z68.41 Body mass index [BMI] 40.0-44.9, adult; X50.1XXA Overexertion from prolonged static or awkward postures, initial encounter; Y92.019 Unspecified place in single-family (private) house as the place of occurrence of the external cause; E78.00 Pure hypercholesterolemia, unspecified; I10 Essential (primary) hypertension; G43.009 Migraine without aura, not intractable, without status migrainosus; D50.9 Iron deficiency anemia, unspecified; E53.8 Deficiency of other specified B group vitamins; G89.29 Other chronic pain; K21.9 Gastro-esophageal reflux disease without esophagitis; M23.51 Chronic instability of knee, right knee; E66.01 Morbid (severe) obesity due to excess calories; D69.6 Thrombocytopenia, unspecified; Z96.653 Presence of artificial knee joint, bilateral; Z88.4 Allergy status to anesthetic agent; Z88.6 Allergy status to analgesic agent; Z88.8 Allergy status to other drugs, medicaments and biological substances; Z98.84 Bariatric surgery status; Z79.899 Other long term (current) drug therapy
CPT/HCPCS: 01360; 36415; 36430; 71010; 80048; 80053; 83735; 85025; 85610; 85730; 86850; 86900; 86901; 86920; 87070; 87075; 87205; 88305; 93005; 93010; 96374; 96375; 99284; C1713; C9290; J0131; J0330; J0690; J1100; J1170; J1200; J1650; J1741; J1885; J2270; J2405; J2704; J2765; J3010; J3490; J7120; P9016; S0028

== ENCOUNTER 2018-05-01 15:42 | Emergency (ER) | payer OTHER ==
[2018-05-01 16:32] VITALS: BP 147/74
[2018-05-01] MEDS ORDERED: HYDROMORPHONE HCL INJ/PF 2 MG/ML AMPULE IV ONE (17:02)
[2018-05-01] MEDS ORDERED: KETOROLAC TROMETHAMINE 60 MG/2 ML SDV IM ONE (17:02)
--- NOTE | 2018-05-01 18:23 | RADIOLOGY REPORT (SQ) ---
EXAM DESCRIPTION: HIP RIGHT AP/LATERAL COMPLETED DATE/TIME: 05/01/2018 6:11 pm REASON FOR STUDY: pain . Pain in the right hip laterally. COMPARISON: Intraoperative right femur x-ray 10/31/2016. NUMBER OF VIEWS: Two views. TECHNIQUE: AP pelvis and additional frog-leg view of the right hip. LIMITATIONS: None. FINDINGS: There is no acute fracture or dislocation. The pelvic ring is intact. The bilateral hip joints are maintained. Partially visualized orthopedic hardware at the right femur. The soft tissue s are unremarkable. IMPRESSION: No radiographic evidence of acute injury at the right hip. TECHNICAL DOCUMENTATION: JOB ID: [id number] 2010 [employer]- All Rights Reserved Reading location - IP/workstation name: [email or web address]
--- NOTE | 2018-05-01 18:28 | RADIOLOGY REPORT (SQ) ---
EXAM DESCRIPTION: FEMUR RIGHT COMPLETED DATE/TIME: 05/01/2018 6:11 pm REASON FOR STUDY: pain . Pain in the right hip laterally. COMPARISON: Right hip x-ray 05/01/2018. Intra- fluoroscopic images of the right femur 10/31/2016. R ight knee x-ray 10/30/2016. NUMBER OF VIEWS: Two views. TECHNIQUE: Two radiographic images acquired of the right femur to include hip and knee in at least o ne projection. LIMITATIONS: None. FINDINGS: MINERALIZATION: Normal. BONES: No acute fracture. Intramedullary josefina with orthopedic screws are transfixing the right femur. The patient is status post total right knee arthroplasty with patellar resurfacing. The orthopedic hardware appears intact. SOFT TISSUES: No obvious swelling or radiopaque foreign body. IMPRESSION: Postsurgical changes of the right femur with no radiographic evidence of acute fracture. TECHNICAL DOCUMENTATION: JOB ID: [id number] 2010 [employer]- All Rights Reserved Reading location - IP/workstation name: [email or web address]
--- NOTE | 2018-05-01 18:30 | ER Document Report ---
ED General Pain - General Chief Complaint: Back Pain Stated Complaint: BACK/HIP/KNEE PAIN Time Seen by Provider: 05/01/18 17:01 Mode of Arrival: Wheelchair Information source: Patient Notes: Patient is a 51-year-old obese female comes to emergency room complaining of pain in her right hip and right knee. Patient has had a history of left femoral josefina placement in October of last year which was done secondary to a fall she sustained. Patient furthermore states that this pain has developed over 2- 3 days. It appears to be in a descending kind of fashion from the right hip area and low back to the right thigh both behind and in front at times. 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 She says that she is also getting methotrexate but she is just started on that and is only had one round. She furthermore states she has upper extremity problems with arthritic type with presentation of the hands and has received steroid injections over the past week. She also has a specialized appointment tomorrow with her spinal specialist. She feels like this pain may be related to a sciatic kind presentation but also to the tendon that runs down the right side of the leg. She feels she may have tendinitis. She is here today because she states she cannot stand the pain any longer. She has been tried on Lyrica but she has allergic reaction of a skin rash and severe pruritus she is currently on a medication called Horizant she has been on all muscle relaxers that have no effect on her and currently is stated on methotrexate and steroid shots. TRAVEL OUTSIDE OF THE [place] IN LAST 30 DAYS: No - HPI Onset: Other - 3 days Onset/Duration: Gradual, Worse Quality of pain: Achy, Sharp, Throbbing Severity: Severe Pain Level: 4 Context: Chronic problem, New onset Typical of prior episodes of painful crisis: No Associated symptoms: Muscle aches Exacerbated by: Standing, Movement, Walking Relieved by: Denies Similar symptoms previously: Yes Recently seen / treated by doctor: Yes - Related Data Allergies/Adverse Reactions: midazolam [From Versed] Allergy (Verified 09/12/16 22:47) promethazine [From Phenergan] Allergy (Verified 09/12/16 22:47) red dye Allergy (Verified 09/12/16 22:47) hydrocodone Adverse Reaction (Mild, Verified 11/03/16 17:19) Pruritis oxycodone Adverse Reaction (Mild, Verified 11/03/16 17:19) Pruritis pregabalin [From Lyrica] Adverse Reaction (Verified 10/30/16 13:12) Generalized edema Past Medical History - General Information source: Patient, Relative - Social History Smoking Status: Former Smoker Cigarette use (# per day): No Chew tobacco use (# tins/day): No Smoking Education Provided: No Frequency of alcohol use: None Drug Abuse: None Family History: Reviewed & Not Pertinent Patient has suicidal ideation: No Patient has homicidal ideation: No - Past Medical History Cardiac Medical History: Reports: Hx Hypercholesterolemia, Hx Hypertension Neurological Medical History: Reports: Hx Migraine Renal/ Medical History: Reports: Hx Kidney Stones. Denies: Hx Peritoneal Dialysis Musculoskeletal Medical History: Reports Hx Arthritis Past Surgical History: Reports: Hx Breast Surgery - reduction, Hx Section, Hx Gastric Bypass Surgery, Hx Orthopedic Surgery - Multiple bilateral knee surgeries including bilateral knee replacements, Other - Sphenocath - Immunizations Hx Diphtheria, Pertussis, Tetanus Vaccination: Yes Review of Systems - Review of Systems Constitutional: No symptoms reported EENT: No symptoms reported Cardiovascular: No symptoms reported Respiratory: No symptoms reported Gastrointestinal: No symptoms reported Genitourinary: No symptoms reported Female Genitourinary: No symptoms reported Musculoskeletal: Back pain, Joint pain, Muscle pain Skin: No symptoms reported Hematologic/Lymphatic: No symptoms reported Neurological/Psychological: No symptoms reported -: Yes All other systems reviewed and negative Physical Exam - Vital signs Vitals: Temp Pulse Resp BP Pulse Ox 97.5 F 71 18 147/74 H 93 05/01/18 16:28 05/01/18 16:28 05/01/18 16:28 05/01/18 16:28 05/01/18 16:28 Interpretation: Hypertensive - Notes Notes: PHYSICAL EXAMINATION: GENERAL: Patient is a well-nourished well-developed obese 52-year-old female who is in no apparent distress on physical exam tonight. Patient does appear somewhat uncomfortable. HEAD: Atraumatic, normocephalic. EYES: Pupils equal round and reactive to light, extraocular movements intact, conjunctiva are normal. NECK: Normal range of motion, supple without lymphadenopathy LUNGS: Breath sounds clear to auscultation bilaterally and equal. No wheezes rales or rhonchi. HEART: Regular rate and rhythm without murmurs Female : deferred Musculoskeletal: Physical exam a very concerns patient's right hip and right leg. Low back also to be included in this. Examination of patient's low back shows some mild tenderness to palpation around the lower L4-L5 area but more to the lateral side into the muscle. There is a tenderness in the palpable spasm in the area. Further examination descending shows she has moderate amount of tenderness in the gluteus area and especially at the sciatic notch area. Further descending patient has positive straight leg raise on the right side to only about 20 degrees. Vascular exam is 100% normal she has good pulses in the right femoral and distally to that in the dorsalis pedis in the popliteal area. Patient has good flexion-extension at the knee. He will be speaking since this is the area of her recent operation. She has a well-healed external scars from surgeries. Patient has decreased range of motion at the waist to flexion and extension and rotation. She has DTRs that are basically normal the right side is a little off secondary to surgery there is no sign of foot drop patient has good sensation bilateral lower extremities. NEUROLOGICAL: Normal speech, normal gait. Normal sensory, motor exams PSYCH: Normal mood, normal affect. SKIN: Warm, Dry, normal turgor, no rashes or lesions noted. Course - Re-evaluation Re-evalutation: 05/01/18 18:38 Patient is a very difficult one to ascertain exactly why she is here. She has multiple specialist and is on pain medication she has been on and is currently on gabapentin she is on methotrexate she has had muscle relaxers without any success. Given that her x-rays are negative and since she is recently had steroid shots and on methotrexate I am not going to add any more steroids to the area. She has a appointment with her channel specialist tomorrow I am going to treat her acute pain here today I have given her Toradol and some Dilaudid now we will see if that is curtailed her discomfort and pain and I will have her follow-up with her primary specialist tomorrow. She has no indications of this being a saddle paresthesia she has not lost urine or stool. I walked by were patient was sitting in room 31 waiting for results she looks a lot more comfortable than she did on my examination. We will go back and assess her in just a minute to see if that still holds true if so I will probably give her another shot of Dilaudid and let her go home. I may add a little Valium to her regime in place of a muscle relaxer. 05/01/18 18:52 Patient did have some benefit to the medication shots that we gave her earlier so I am going to give her 1 more shot of Dilaudid and will place her on some Valium for home for a couple of days. Hopefully dividing work as a muscle relaxer to help relieve the discomfort and pain. She has a specialist appointment tomorrow morning at 8 AM and she is going to keep that appointment. I have informed her there is little more that I can do on emergency room given all of her allergies and her reactions in the ones are not working for her were limited on what we have here. Patient states she understands that she is difficult and appreciates was given a an effort. - Vital Signs Vital signs: Temp Pulse Resp BP Pulse Ox 97.5 F 71 18 147/74 H 93 05/01/18 16:28 05/01/18 16:28 05/01/18 16:28 05/01/18 16:28 05/01/18 16:28 Discharge - Discharge Clinical Impression: Muscle spasm Sciatica Qualifiers: Laterality: right Qualified Code(s): M54.31 - Sciatica, right side Condition: Stable Disposition: HOME, SELF-CARE Instructions: Ice Packs ([facility]), Low Back Pain ([facility]), Muscle Strain ([facility]), Pain Medication Injection ([facility]), Warm Packs ([facility]) Additional Instructions: As we discussed there is little more I can do on emergency room since you have not somewhat resistance to all medications. Highly suggested to consult with your specialist tomorrow morning at 8 AM and discussed other options. I still believe this to be related to spasms of the right hip and back area. Also suggest that he follow-up with Dr. Alanis for the crepitus in the right knee. Should you notice a dramatic turn of events in the next 24 hours return to ER for recheck. This would include loss of urine or stool uncontrollably numbness and tingling or loss of movement of one foot or the other. Prescriptions: Diazepam [Valium 5 mg Tablet] 5 mg PO TID #15 tablet Referrals: SWEETIE BRODY MD [ACTIVE STAFF] - Follow up as needed
[2018-05-01] MEDS ORDERED: DIAZEPAM 5 MG TABLET PO ONE (18:49)
[2018-05-01] MEDS ORDERED: HYDROMORPHONE HCL INJ/PF 2 MG/ML AMPULE IM ONE (18:49)
== END 2018-05-01 19:47 | disposition home or self-care (01) ==
LOC: ER 15:42
DX: M54.31 Sciatica, right side (principal); M62.838 Other muscle spasm; E78.00 Pure hypercholesterolemia, unspecified; I10 Essential (primary) hypertension; Z87.442 Personal history of urinary calculi; Z88.6 Allergy status to analgesic agent; Z98.84 Bariatric surgery status; Z98.890 Other specified postprocedural states
CPT/HCPCS: 99283; 96372; 96374; 73552; 73502; J1885; J1170

== ENCOUNTER → 2018-05-12 | Outpatient (CLI) | payer OTHER, BC ==
--- NOTE | 2018-05-12 11:31 | RADIOLOGY REPORT (SQ) ---
EXAM DESCRIPTION: MRI RT LOWER EXTREMITY WITHOUT COMPLETED DATE/TIME: 05/12/2018 11:15 am REASON FOR STUDY: M79.651 PAIN IN RIGHT THIGH M79.651 PAIN IN RIGHT THIGH COMPARISON: None. TECHNIQUE: Multiplanar imaging of the right thigh to include fat and fluid sensitive sequences. LIMITATIONS: Metal artifact status post intramedullary josefina femoral shaft and total knee arthroplasty . FINDINGS: BONE MARROW: No marrow signal alteration. Specifically no marrow replacement or marrow ed sunshine. No evidence for osteomyelitis. No cortical break through. SOFT TISSUES: No soft tissue abscess or swelling. OTHER: No other significant finding. IMPRESSION: No evidence of mass or osteomyelitis. TECHNICAL DOCUMENTATION: JOB ID: [id number] [employer]- All Rights Reserved Reading location - IP/workstation name: [email or web address]
== END ==
LOC: RAD 10:16
PROVIDERS: ATTEND Psychiatry & Neurology Neurology
DX: M79.651 Pain in right thigh (principal)

== ENCOUNTER 2018-06-22 07:51 | Day surgery (SDC) | payer OTHER, BC ==
[2018-06-20 11:58] LABS: HEMATOCRIT 39.3 % (36.0-47.0); HEMOGLOBIN 13.5 g/dL (12.0-15.5); MEAN CORPUSCULAR HEMOGLOBIN 28.8 pg (27.0-33.4); MEAN CORPUSCULAR HGB CONC 34.2 g/dL (32.0-36.0); MEAN CORPUSCULAR VOLUME 84 fl (80-97); PLATELET COUNT 220 10^3/uL (150-450); RED BLOOD COUNT 4.68 10^6/uL (3.72-5.28); RED CELL DISTRIBUTION WIDTH 14.8 % (11.5-14.0); WHITE BLOOD COUNT 7.4 10^3/uL (4.0-10.5)
[2018-06-20 12:10] LABS: APPEARANCE,URINE CLEAR; BILIRUBIN,URINE NEGATIVE (NEGATIVE); COLOR,URINE YELLOW; GLUCOSE, URINE NEGATIVE (NEGATIVE); KETONES,URINE TRACE mg/dL (NEGATIVE); LEUKOCYTE ESTERASE,URINE NEGATIVE (NEGATIVE); NITRITE,URINE NEGATIVE (NEGATIVE); PROTEIN,URINE NEGATIVE (NEGATIVE); UROBILINOGEN,URINE NEGATIVE mg/dL (<2.0)
[2018-06-20 12:24] LABS: ANION GAP 10 (5-19); BLOOD UREA NITROGEN 12 mg/dL (7-20); CALCIUM 9.8 mg/dL (8.4-10.2); CARBON DIOXIDE 30 mmol/L (22-30); CHLORIDE 101 mmol/L (98-107); GLUCOSE 78 mg/dL (75-110); POTASSIUM 4.8 mmol/L (3.6-5.0); SODIUM 140.5 mmol/L (137-145)
--- NOTE | 2018-06-20 12:46 | RADIOLOGY REPORT (SQ) ---
EXAM DESCRIPTION: CHEST PA/LATERAL COMPLETED DATE/TIME: 06/20/2018 11:50 am REASON FOR STUDY: PRE-OP COMPARISON: AP chest 10/20/2016 EXAM PARAMETERS: NUMBER OF VIEWS: two views TECHNIQUE: Digital Frontal and Lateral radiographic views of the chest acquired. RADIATION DOSE: NA LIMITATIONS: none FINDINGS: LUNGS AND PLEURA: No opacities, masses or pneumothorax. No pleural effusion. MEDIASTINUM AND HILAR STRUCTURES: No masses or contour abnormalities. HEART AND VASCULAR STRUCTURES: Mild cardiomegaly, stable BONES: No acute findings. HARDWARE: None in the chest. OTHER: No other significant finding. IMPRESSION: Mild cardiomegaly, no acute findings TECHNICAL DOCUMENTATION: JOB ID: [id number] [employer]- All Rights Reserved Reading location - IP/workstation name: [email or web address]
--- NOTE | 2018-06-20 17:00 | EKG REPORT ---
SEVERITY:- NORMAL ECG - SINUS RHYTHM : Confirmed by: Curtis Feliz 20-Jun-2018 16:59:30
[~2018-06-22 07:51] MED LIST: CEFAZOLIN 2 GM/D5W RTU 2 GM/50 ML RTUPB IV PRN; LACTATED RINGERS 1000 ML IV PRN; LIDOCAINE 0.5% INJ-PF (5 MG/ML) 50 ML SDV SUBCUT PRN
[2018-06-22] MEDS ORDERED: CEFAZOLIN 2 GM/D5W RTU 2 GM/50 ML RTUPB IV ONE (07:54)
[2018-06-22] MEDS ORDERED: SUCCINYLCHOLINE CHLORIDE INJ 200 MG/10 ML VIAL ONE (08:05)
[2018-06-22] MEDS ORDERED: BUPIVACAINE HCL 0.5%-EPI 1:200000 INJ/PF 30 ML VIAL ONE (10:14)
[2018-06-22] MEDS ORDERED: DEXAMETHASONE SOD PHOSPHATE INJ 4 MG/1 ML VIAL ONE (10:17)
[2018-06-22] MEDS ORDERED: ONDANSETRON HCL INJ/PF 4 MG/2 ML SDV ONE (10:17)
[2018-06-22] MEDS ORDERED: LIDOCAINE 2% INJ-PF (20 MG/ML) 10 ML AMPUL ONE (10:17)
[2018-06-22] MEDS ORDERED: PROPOFOL INJ 200 MG/20 ML VIAL IV ONE (10:18)
[2018-06-22] MEDS ORDERED: ACETAMINOPHEN 1,000 MG/100 ML RTUPB IV ONE (10:18)
[2018-06-22] MEDS ORDERED: HYDROMORPHONE HCL INJ/PF 2 MG/ML AMPULE ONE (10:18)
[2018-06-22] MEDS ORDERED: DIPHENHYDRAMINE HCL 50 MG/ML VIAL ONE ×2 (10:43→11:51)
[2018-06-22] MEDS ORDERED: ONDANSETRON HCL INJ/PF 4 MG/2 ML SDV IV PRN (11:04)
[2018-06-22] MEDS ORDERED: MEPERIDINE HCL/PF INJ 25 MG/1 ML DISP.SYRIN IV PRN (11:04)
[2018-06-22] MEDS ORDERED: DIPHENHYDRAMINE HCL 50 MG/ML VIAL IV PRN (11:04)
[2018-06-22] MEDS ORDERED: FENTANYL CITRATE INJ/PF 100 MCG/2 ML AMPUL IV PRN ×3 (11:04)
--- NOTE | 2018-06-22 11:05 | Discharge Summary ---
Discharge Summary (SDC) - Discharge Final Diagnosis: Retained hardware right distal femur Date of Surgery: 06/22/18 Discharge Date: 06/22/18 Condition: Good Treatment or Instructions: Removed compressive wrap on Wednesday Prescriptions: Hydrocodone Bit/Acetaminophen [Hydrocodon-Acetaminophen 5-325] 1 each PO Q6 PRN #25 tablet PRN Reason: Referrals: YARELI GONZALEZ MD [Primary Care Provider] - Discharge Diet: As Tolerated, Regular Respiratory Treatments at Home: Deep Breathing/Coughing Discharge Activity: Activity As Tolerated, Balance Activity w/Rest, No tub bath Report the Following to Your Physician Immediately: Shortness of Breath, Fever over 101 Degrees, Drainage-Foul Smelling
--- NOTE | 2018-06-22 11:07 | Operative Report ---
Operative Report DATE OF SURGERY: 06/22/18 PREOPERATIVE DIAGNOSIS: Retained hardware right distal femur OPERATION: Hardware removal right distal femur SURGEON: SWEETIE BRODY ANESTHESIA: GA TISSUE REMOVED OR ALTERED: Screw to CSS ESTIMATED BLOOD LOSS: 50 PROCEDURE: With the patient supine and operative table the right lower extremities prepped and draped in sterile fashion. The screw which is anterior lateral over the distal femur is an oblique interlocking screw is localized using fluoroscopy. A stab wound was made over the screw head. Appropriate screwdriver was used to remove the screw uneventfully. The wound is irrigated. Hemostasis obtained with electrocautery. Wound is closed with interrupted Vicryl followed by nylon. A sterile compressive dressing is applied and the patient's return to the PACU in satisfactory condition.
[2018-06-22] MEDS ORDERED: DIPHENHYDRAMINE HCL 50 MG/ML VIAL IV ONE (13:30)
--- NOTE | 2018-06-22 13:52 | RADIOLOGY REPORT (SQ) ---
EXAM DESCRIPTION: NO CHG FLUORO; KNEE RIGHT 2 VIEWS COMPLETED DATE/TIME: 06/22/2018 12:59 pm REASON FOR STUDY: HARDWARE REMOVAL RT KNEE ASST WITH FLUORO IN OR COMPARISON: None. FINDINGS: Total fluoro time 0.0 minutes. Two views right knee. 2nd image shows removal of 1 of the distal interlocking screws. Correlate wit h operative note TECHNICAL DOCUMENTATION: JOB ID: [id number] Reading location - IP/workstation name: [email or web address]
--- NOTE | 2018-06-22 13:52 | RADIOLOGY REPORT (SQ) ---
EXAM DESCRIPTION: NO CHG FLUORO; KNEE RIGHT 2 VIEWS COMPLETED DATE/TIME: 06/22/2018 12:59 pm REASON FOR STUDY: HARDWARE REMOVAL RT KNEE ASST WITH FLUORO IN OR COMPARISON: None. FINDINGS: Total fluoro time 0.0 minutes. Two views right knee. 2nd image shows removal of 1 of the distal interlocking screws. Correlate wit h operative note TECHNICAL DOCUMENTATION: JOB ID: [id number] Reading location - IP/workstation name: [email or web address]
[2018-06-22 14:52] VITALS: BP 108/75
== END 2018-06-22 14:59 | disposition home or self-care (01) ==
LOC: OROUT 07:51
PROVIDERS: ATTEND Orthopaedic Surgery
DX: T84.84XA Pain due to internal orthopedic prosthetic devices, implants and grafts, initial encounter (principal); Y83.8 Other surgical procedures as the cause of abnormal reaction of the patient, or of later complication, without mention of misadventure at the time of the procedure; M25.561 Pain in right knee
CPT/HCPCS: 93010; 93005; 36415; 85027; 80048; 81001; 71046; 73560; 20680; J1100; J1200; J1170; J0330; J2405; J2704; J3490; J0690; J0131; 01360

== ENCOUNTER 2018-07-04 13:32 | Inpatient (IN) | payer OTHER, BC ==
--- NOTE | 2018-07-04 14:03 | PDOC H&P ---
History of Present Illness Admission Date/PCP: YARELI GONZALEZ MD History of Present Illness: CHELSEY OSORIO is a 52 year old female Patient is a 52-year-old white female status post open reduction internal fixation of a right distal femoral periprosthetic fracture in the past with prominent hardware. Approximately 2 weeks ago the patient underwent a screw removal. She was seen in the office approximately week ago with scant serosanguineous drainage. She now presents with complaints of increasing right knee pain, malaise, headache, and pain radiating down the right lower extremity. Past Medical History Cardiac Medical History: Reports: Hyperlipidema, Hypertension - IRBESARTIN Denies: Coronary Artery Disease, Myocardial Infarction Pulmonary Medical History: Reports: Pneumonia - 2017 Denies: Asthma, Bronchitis, Chronic Obstructive Pulmonary Disease (COPD) Neurological Medical History: Reports: Migraine Denies: Seizures Musculoskeltal Medical History: Reports: Arthritis - PSORIATIC ARTHRITIS Hematology: Reports: Anemia - IRON DEFICIENT Past Surgical History Past Surgical History: Reports: Section, Gastric Bypass Surgery, Orthopedic Surgery - Status post open reduction internal fixation of a right distal femoral fritz, Other - Sphenocath Social History Information Source: Patient, Dr. Office, [facility] Records Lives with: Family Smoking Status: Never Smoker Frequency of Alcohol Use: Rare Hx Recreational Drug Use: No Hx Prescription Drug Abuse: No Family History Family History: Reviewed & Not Pertinent Parental Family History Reviewed: No Children Family History Reviewed: No Sibling(s) Family History Reviewed.: No Medication/Allergy Home Medications: Furosemide [Lasix 20 mg Tablet] 20 mg PO DAILY 10/30/16 Rosuvastatin Calcium [Crestor 20 mg Tablet] 20 mg PO DAILY 10/30/16 Sertraline HCl [Zoloft 50 mg Tablet] 50 mg PO QHS 10/30/16 Tizanidine HCl [Zanaflex] 2 mg PO QHS 10/30/16 Trazodone HCl [Desyrel 50 mg Tablet] 100 mg PO QHS 10/30/16 Zolmitriptan [Zomig] 5 mg PO BIDP PRN 10/30/16 Zonisamide [Zonegran 100 mg Capsule] 200 mg PO QHS 10/30/16 Ferrous Sulfate [Feosol 325 mg Tablet] 325 mg PO BID #60 tablet 11/04/16 Cholecalciferol (Vitamin D3) [Vitamin D3] 5,000 unit PO DAILY 06/20/18 Cyanocobalamin (Vitamin B-12) [Vitamin B-12] 1,000 mcg PO ASDIR PRN 06/20/18 Diphenhydramine HCl [Sleep-Aid] 50 mg PO DAILY 06/20/18 Folic Acid [Folvite 1 mg Tablet] 1 mg PO DAILY 06/20/18 Irbesartan 75 mg PO DAILY 06/20/18 Methotrexate [Xatmep] 2.5 mg PO ASDIR PRN 06/20/18 Multivitamin [Multivitamins] 1 each PO DAILY 06/20/18 Naproxen Sod/Diphenhydramine [Aleve Pm Caplet] 1 each PO DAILY 06/20/18 Naproxen Sodium [Aleve] 220 mg PO DAILY 06/20/18 Pseudoephedrine HCl [Sudafed 12 Hour] 120 mg PO DAILY 06/20/18 Hydrocodone Bit/Acetaminophen [Hydrocodon-Acetaminophen 5-325] 1 each PO Q6 PRN #25 tablet 06/22/18 Allergies/Adverse Reactions: midazolam [From Versed] Allergy (Severe, Verified 07/04/18 13:35) promethazine [From Phenergan] Allergy (Severe, Verified 07/04/18 13:35) red dye Allergy (Severe, Verified 07/04/18 13:35) hydrocodone Adverse Reaction (Mild, Verified 07/04/18 13:35) Pruritis oxycodone Adverse Reaction (Mild, Verified 07/04/18 13:35) Pruritis pregabalin [From Lyrica] Adverse Reaction (Verified 07/04/18 13:35) Generalized edema Review of Systems All systems: reviewed and no additional remarkable complaints except as stated Constitutional: PRESENT: headache(s), weakness Physical Exam Physical Exam: Overweight middle-aged white female seen in the emergency room waiting room. She has a compression dressing about the right knee. This is retracted. The underlying incision is well-healed with sutures. There is a small amount of erythema as well as some serous drainage on the bandage. There is minimal pedal edema. Distal neurovascular examination is intact. General appearance: PRESENT: mild distress, well-nourished Head exam: PRESENT: normocephalic Respiratory exam: PRESENT: unlabored Cardiovascular exam: PRESENT: RRR Pulses: PRESENT: +1 pedal pulses bilateral Vascular exam: PRESENT: normal capillary refill GI/Abdominal exam: PRESENT: soft Rectal exam: PRESENT: deferred Extremities exam: PRESENT: other - As above right lower extremity is wrapped in a compressive dressing. The dressing itself is clean and dry. The underlying incision is approximated with loreta. There is a small amount of erythema that was not present previously. There is some scant serous drainage. Distally there is minimal pedal edema. Distal neurovascular examination is intact. Neurological exam: PRESENT: alert, awake, oriented to person, oriented to place, oriented to time, oriented to situation. ABSENT: motor sensory deficit Psychiatric exam: PRESENT: anxious Skin exam: PRESENT: dry, intact, warm. ABSENT: cyanosis, rash Results Status: Imported from PACS Assessment & Plan - Diagnosis (1) Wound drainage status post hardware mack Is this a current diagnosis for this admission?: Yes Plan: Patient with moderate to severe symptoms and a draining right distal femoral wound. Plan will be to admit for laboratory evaluation and IV antibiotics and reevaluate in the morning. - Time Time Spent: 50 to 70 Minutes Anticipated discharge: Home with Homehealth Within: within 24 hours
[2018-07-04] MEDS ORDERED: NORMAL SALINE 1000 ML 1,000 ML IV ONE (16:20)
[2018-07-04] MEDS ORDERED: CEFTRIAXONE 2 GM/D5W RTU 2 GM/50 ML RTUPB IV ONE (16:21)
[2018-07-04] MEDS ORDERED: HYDROMORPHONE HCL INJ/PF 2 MG/ML AMPULE IV ONE (16:22)
[2018-07-04] MEDS ORDERED: ONDANSETRON HCL INJ/PF 4 MG/2 ML SDV IV ONE (16:22)
--- NOTE | 2018-07-04 16:24 | ER Document Report ---
ED General - General Chief Complaint: Knee Pain Stated Complaint: KNEE PAIN Notes: Patient is a 52-year-old female with history of surgeries to the right leg that presents to the emergency department for chief complaint of right leg pain and drainage from her wound. Patient states that she went to her primary care's office today, and they were concerned about drainage from her right leg, was advised to get orthopedic surgery, she was seen in the office and directed to the emergency department for this. The patient has a history of femoral nailing due to a fracture of her femur on the right leg, and has been having drainage from the lateral distal wound, she states has been a clearish rubio in color, but today noticed some thicker drainage. She currently rates her pain as a 6 out of 10 describes as an aching sensation, she does have a dressing on there she states is feeling a little bit tight as well. She denies any any fevers, chills, night sweats, but has had some nausea associated with this without vomiting. Past Medical History: Psoriatic arthritis Past Surgical History: ORIF of the femur and ankle, bilateral total knee arthroplasties Social History: Denies current tobacco, alcohol or drug use. Family History: Reviewed and noncontributory for presenting illness Allergies: Reviewed, see documented allergy list. REVIEW OF SYSTEMS: Other than noted above, the 12 point review of systems was reviewed with the patient and were negative, all pertinent findings are included in the HPI. PHYSICAL EXAMINATION: Vital signs reviewed, nursing noted reviewed. GENERAL: Patient appears uncomfortable HEAD: Atraumatic, normocephalic. EYES: Eyes appear normal, extraocular movements intact, sclera anicteric, conjunctiva are normal. ENT: nares patent, oropharynx clear without exudates. Moist mucous membranes. NECK: Normal range of motion, supple without lymphadenopathy LUNGS: Breath sounds clear to auscultation bilaterally and equal. No wheezes rales or rhonchi. HEART: Mild tachycardia, regular rhythm ABDOMEN: Soft, nontender, normoactive bowel sounds. No rebound, guarding, or rigidity. No masses appreciated. EXTREMITIES: There is a sutured surgical incisional scar over the lateral distal thigh, that does have a small amount of purulent drainage, as well as serous drainage, no significant erythema to this area it is tender to palpate. Patient did have an anterior well-healed surgical incisional scar from prior total knee arthroplasty. NEUROLOGICAL: No focal neurological deficits. Moves all extremities spontaneously Motor and sensory grossly intact on exam. PSYCH: Normal mood, normal affect. SKIN: Warm, Dry, normal turgor TRAVEL OUTSIDE OF THE [place] IN LAST 30 DAYS: No - Related Data Allergies/Adverse Reactions: midazolam [From Versed] Allergy (Severe, Verified 07/04/18 13:35) promethazine [From Phenergan] Allergy (Severe, Verified 07/04/18 13:35) red dye Allergy (Severe, Verified 07/04/18 13:35) hydrocodone Adverse Reaction (Mild, Verified 07/04/18 13:35) Pruritis oxycodone Adverse Reaction (Mild, Verified 07/04/18 13:35) Pruritis pregabalin [From Lyrica] Adverse Reaction (Verified 07/04/18 13:35) Generalized edema Past Medical History - Social History Smoking Status: Unknown if Ever Smoked Lives with: Family Family History: Reviewed & Not Pertinent Patient has suicidal ideation: No Patient has homicidal ideation: No - Past Medical History Cardiac Medical History: Reports: Hx Hypercholesterolemia, Hx Hypertension - I RBESARTIN Denies: Hx Coronary Artery Disease, Hx Heart Attack Pulmonary Medical History: Reports: Hx Pneumonia - 2017 Denies: Hx Asthma, Hx Bronchitis, Hx COPD Neurological Medical History: Reports: Hx Migraine. Denies: Hx Cerebrovascular Accident, Hx Seizures Renal/ Medical History: Reports: Hx Kidney Stones. Denies: Hx Peritoneal Dialysis Musculoskeletal Medical History: Reports Hx Arthritis - PSORIATIC ARTHRITIS Past Surgical History: Reports: Hx Breast Surgery - reduction, Hx Section, Hx Gastric Bypass Surgery, Hx Orthopedic Surgery - Status post open reduction internal fixation of a right distal femoral fritz, Other - Sphenocath - Immunizations Hx Diphtheria, Pertussis, Tetanus Vaccination: Yes Physical Exam - Vital signs Vitals: Temp Pulse Resp BP Pulse Ox 98.1 F 107 H 20 101/56 L 100 07/04/18 14:09 07/04/18 14:09 07/04/18 14:09 07/04/18 14:09 07/04/18 14:09 Course - Re-evaluation Re-evalutation: Patient seen and examined vital signs reviewed. Laboratory data and imaging were ordered as appropriate for the patient's presenting symptoms and complaint, with consideration of any critical or life threatening conditions that may be associated with their obtained history and exam as noted above. Patient was treated with IV Rocephin 2 g, IV Dilaudid and Zofran for pain and nausea and given some IV fluids Results were reviewed when available and demonstrated leukocytosis, of 15,000, CRP was elevated, ESR was normal The patient was re-evaluated and was improved Evaluation was most consistent with wound infection, knee pain, leukocytosis, case was discussed with Dr. Ocampo, who did see the patient while she was waiting and will admit the patient Results were discussed with the patient at this point after careful consideration I feel that that patient should be admitted to the hospital. This was discussed with the patient that it is in the best interest for their care to be admitted for further evaluation and management. Patient agreed with this plan of care. A call was placed to the admitted physician, Dr. Ocampo who jadyn ously accepted the patient onto their service. *Note is created using voice recognition software and may contain spelling, syntax or grammatical errors. 07/04/18 20:25 - Vital Signs Vital signs: Temp Pulse Resp BP Pulse Ox 98.1 F 107 H 20 101/56 L 100 07/04/18 14:09 07/04/18 14:09 07/04/18 14:09 07/04/18 14:09 07/04/18 14:09 - Laboratory Result Diagrams: 07/04/18 16:45 07/04/18 16:45 Discharge - Discharge Clinical Impression: Wound infection Right knee pain Qualifiers: Chronicity: acute Qualified Code(s): M25.561 - Pain in right knee Leukocytosis Qualifiers: Leukocytosis type: unspecified Qualified Code(s): D72.829 - Elevated white blood cell count, unspecified Condition: Stable Disposition: ADMITTED OBSERVATION Admitting Provider: Dr. Ocampo Unit Admitted: Surgical Floor
[2018-07-04] MEDS ORDERED: ONDANSETRON 4 MG TAB.RAPDIS PO PRN (16:43)
[2018-07-04 17:14] LABS: HEMATOCRIT 37.1 % (36.0-47.0); HEMOGLOBIN 12.7 g/dL (12.0-15.5); MEAN CORPUSCULAR HEMOGLOBIN 28.9 pg (27.0-33.4); MEAN CORPUSCULAR HGB CONC 34.2 g/dL (32.0-36.0); MEAN CORPUSCULAR VOLUME 85 fl (80-97); PLATELET COUNT 200 10^3/uL (150-450); RED BLOOD COUNT 4.39 10^6/uL (3.72-5.28); RED CELL DISTRIBUTION WIDTH 15.9 % (11.5-14.0); WHITE BLOOD COUNT 15.6 10^3/uL (4.0-10.5)
[2018-07-04 17:35] LABS: ANION GAP 11 (5-19); BLOOD UREA NITROGEN 10 mg/dL (7-20); C-REACTIVE PROTEIN 40.3 mg/L (<10.0); CALCIUM 9.7 mg/dL (8.4-10.2); CARBON DIOXIDE 26 mmol/L (22-30); CHLORIDE 98 mmol/L (98-107); GLUCOSE 121 mg/dL (75-110); POTASSIUM 4.1 mmol/L (3.6-5.0); SODIUM 134.7 mmol/L (137-145)
[2018-07-04 17:40] LABS: ABSOLUTE LYMPHOCYTES# (MANUAL) 0.3 10^3/uL (0.5-4.7); ABSOLUTE MONOCYTES # (MANUAL) 0.3 10^3/uL (0.1-1.4); BAND NEUTROPHILS % (MANUAL) 2 % (3-5); BASOPHILS % (MANUAL) 0 % (0-2); EOSINOPHILS % (MANUAL) 0 % (0-6); LYMPHOCYTES % (MANUAL) 2 % (13-45); MONOCYTES % (MANUAL) 2 % (3-13); SEGMENTED NEUTROPHILS % (MAN) 94 % (42-78); TOTAL CELLS COUNTED 100
[2018-07-04 17:41] LABS: ANISOCYTOSIS SLIGHT; OVALOCYTES SLIGHT; PLATELET COMMENT ADEQUATE; POIKILOCYTOSIS SLIGHT; TOXIC GRANULATION SLIGHT
[2018-07-04 17:52] LABS: ERYTHROCYTE SEDIMENTATION RATE 17 mm/hr (0-30)
[2018-07-04] MEDS: HYDROCODONE/ACETAMINOPHEN 5-325 MG TABLET PO PRN (21:34)
[2018-07-05] MEDS ORDERED: DEXTROSE 50%-WATER 25 GM/50 ML DISP.SYRIN IV PRN ×2 (00:09)
[2018-07-05] MEDS ORDERED: GLUCAGON,HUMAN RECOMB 1 MG INJ SUBCUT PRN (00:09)
[2018-07-05] MEDS ORDERED: DEXTROSE 40% GEL 15 GM TUBE PO PRN ×2 (00:09)
[2018-07-05] MEDS: MORPHINE SULFATE 10 MG/ML INJ IV PRN ×2 (01:51→13:13)
[2018-07-05] MEDS: ACETAMINOPHEN 325 MG TABLET PO PRN ×3 (03:45→16:35)
--- NOTE | 2018-07-05 07:11 | PDOC PROGRESS REPORT ---
Subjective Progress Note for:: 07/05/18 Reason For Visit: RIGHT KNEE PAIN, WOUND INFECTION Patient status post hardware removal right knee now with continued complaints of pain down the right lower extremity, headaches, generalized malaise. Fever to 102 last night. Physical Exam Vital Signs: Temp Pulse Resp BP Pulse Ox 37.4 C 94 20 88/60 L 95 07/05/18 05:41 07/05/18 05:41 07/05/18 04:36 07/05/18 06:33 07/05/18 04:36 Intake & Output 07/04/18 07/05/18 07/06/18 06:59 06:59 06:59 Intake Total 550 Output Total 300 Balance 250 Weight 101.9 kg Physical Exam: Overweight middle-aged white female lying in bed somewhat flushed in the face and overall feeling poorly. Patient with relative hypotension on a background of hypertension. General appearance: PRESENT: mild distress, well-nourished Head exam: PRESENT: normocephalic Respiratory exam: PRESENT: unlabored Cardiovascular exam: PRESENT: RRR Pulses: PRESENT: +1 pedal pulses bilateral Vascular exam: PRESENT: normal capillary refill Extremities exam: PRESENT: other - Right knee wound with some erythema and serous drainage. The erythema is just around the incision itself does not seem to involve the knee or the lower extremity. There is no clear knee effusion. Neurological exam: PRESENT: alert, awake, oriented to person, oriented to place, oriented to time, oriented to situation. ABSENT: motor sensory deficit Psychiatric exam: PRESENT: appropriate affect, normal mood. ABSENT: homicidal ideation, suicidal ideation Skin exam: PRESENT: erythema, intact, warm. ABSENT: cyanosis, rash Results Laboratory Results: 07/04/18 16:45 07/04/18 16:45 07/04/18 07/04/18 16:45 16:45 WBC 15.6 H RBC 4.39 Hgb 12.7 Hct 37.1 MCV 85 MCH 28.9 MCHC 34.2 RDW 15.9 H Plt Count 200 Seg Neutrophils % Not Reportable Lymphocytes % Not Reportable Monocytes % Not Reportable Eosinophils % Not Reportable Basophils % Not Reportable Absolute Neutrophils Not Reportable Absolute Lymphocytes Not Reportable Absolute Monocytes Not Reportable Absolute Eosinophils Not Reportable Absolute Basophils Not Reportable Sodium 134.7 L Potassium 4.1 Chloride 98 Carbon Dioxide 26 Anion Gap 11 BUN 10 Creatinine 0.56 Est GFR ( Amer) > 60 Est GFR (Non-Af Amer) > 60 Glucose 121 H Calcium 9.7 C-Reactive Protein 40.3 H Status: Imported from PACS Assessment & Plan - Diagnosis (1) Wound drainage status post hardware mack Is this a current diagnosis for this admission?: Yes Plan: 52-year-old female status post hardware removal from the right knee and persistent serous drainage, febrile episode to 102F, and generalized malaise. Sedimentation rate is 17 mm/h. Plan will be for continued administration of Rocephin and observation - Time Time Spent with patient: 15-24 minutes Anticipated discharge: Home with Homehealth Within: Other
[2018-07-05 08:24] LABS: HEMOGLOBIN 12.1 g/dL (12.0-15.5); MEAN CORPUSCULAR HEMOGLOBIN 29.5 pg (27.0-33.4); MEAN CORPUSCULAR HGB CONC 34.7 g/dL (32.0-36.0); MEAN CORPUSCULAR VOLUME 85 fl (80-97); PLATELET COUNT 163 10^3/uL (150-450); RED BLOOD COUNT 4.11 10^6/uL (3.72-5.28); RED CELL DISTRIBUTION WIDTH 15.9 % (11.5-14.0); WHITE BLOOD COUNT 10.7 10^3/uL (4.0-10.5)
[2018-07-05 09:08] LABS: ABSOLUTE LYMPHOCYTES# (MANUAL) 0.4 10^3/uL (0.5-4.7); ABSOLUTE MONOCYTES # (MANUAL) 0.4 10^3/uL (0.1-1.4); ABSOLUTE NEUTROPHILS# (MANUAL) 9.8 10^3/uL (1.7-8.2); BASOPHILS % (MANUAL) 0 % (0-2); EOSINOPHILS % (MANUAL) 0 % (0-6); LYMPHOCYTES % (MANUAL) 3 % (13-45); MONOCYTES % (MANUAL) 4 % (3-13); SEGMENTED NEUTROPHILS % (MAN) 92 % (42-78); TOTAL CELLS COUNTED 100
[2018-07-05 09:10] LABS: ANISOCYTOSIS 1+; OVALOCYTES SLIGHT; PLATELET COMMENT ADEQUATE; POIKILOCYTOSIS SLIGHT
[2018-07-05] MEDS: TRAMADOL HCL 50 MG TABLET PO PRN (09:28)
[2018-07-05] MEDS: RINGERS SOLUTION,LACTATED 1,000 ML IV PRN (13:14)
[2018-07-05] MEDS: CEFTRIAXONE 2 GM/D5W RTU 2 GM/50 ML RTUPB IV SCH (17:32)
[2018-07-05] MEDS: HYDROCODONE/ACETAMINOPHEN 5-325 MG TABLET PO PRN (21:00)
[2018-07-06] MEDS: TRAMADOL HCL 50 MG TABLET PO PRN (01:09)
[2018-07-06] MEDS: RINGERS SOLUTION,LACTATED 1,000 ML IV PRN ×2 (01:16→16:30)
[2018-07-06] MEDS: HYDROCODONE/ACETAMINOPHEN 5-325 MG TABLET PO PRN ×2 (04:15→20:35)
[2018-07-06] MEDS: ACETAMINOPHEN 325 MG TABLET PO PRN (04:18)
--- NOTE | 2018-07-06 07:23 | PDOC PROGRESS REPORT ---
Subjective Progress Note for:: 07/06/18 Reason For Visit: RIGHT KNEE PAIN, WOUND INFECTION 52-year-old white female with continued fevers, serous drainage, malaise status post hardware removal right knee. Sutures were removed yesterday with continued serous drainage Physical Exam Vital Signs: Temp Pulse Resp BP Pulse Ox 37.2 C 88 20 108/60 98 07/06/18 04:15 07/06/18 04:15 07/06/18 04:15 07/06/18 04:15 07/06/18 04:15 Intake & Output 07/05/18 07/06/18 07/07/18 06:59 06:59 06:59 Intake Total 550 2040 Output Total 300 240 Balance 250 1800 Weight 101.9 kg 102 kg General appearance: PRESENT: mild distress, obese Respiratory exam: PRESENT: unlabored Cardiovascular exam: PRESENT: RRR Pulses: PRESENT: +1 pedal pulses bilateral Vascular exam: PRESENT: normal capillary refill GI/Abdominal exam: PRESENT: soft Rectal exam: PRESENT: deferred Extremities exam: PRESENT: other - Right knee wound with continued erythema around the edges and serous drainage. Distal neurovascular examination is intact. Results Laboratory Results: 07/05/18 07:47 07/04/18 16:45 07/05/18 07:47 WBC 10.7 H RBC 4.11 Hgb 12.1 Hct 35.0 L MCV 85 MCH 29.5 MCHC 34.7 RDW 15.9 H Plt Count 163 Seg Neutrophils % Not Reportable Lymphocytes % Not Reportable Monocytes % Not Reportable Eosinophils % Not Reportable Basophils % Not Reportable Absolute Neutrophils Not Reportable Absolute Lymphocytes Not Reportable Absolute Monocytes Not Reportable Absolute Eosinophils Not Reportable Absolute Basophils Not Reportable Status: Imported from PACS Assessment & Plan - Diagnosis (1) Wound drainage status post hardware mack Is this a current diagnosis for this admission?: Yes Plan: Plan for irrigation debridement in the operating today with good deep cultures.
[2018-07-06] MEDS ORDERED: ZOLMITRIPTAN 5 MG PO PRN (07:59)
[2018-07-06] MEDS ORDERED: MIDAZOLAM 2 MG/2 ML INJ ONE (09:25)
[2018-07-06] MEDS ORDERED: ONDANSETRON HCL INJ/PF 4 MG/2 ML SDV ONE (09:25)
[2018-07-06] MEDS ORDERED: FENTANYL CITRATE INJ/PF 100 MCG/2 ML AMPUL ONE ×2 (09:25→10:42)
[2018-07-06] MEDS ORDERED: PROPOFOL INJ 200 MG/20 ML VIAL IV ONE (09:25)
[2018-07-06] MEDS ORDERED: BACITRACIN INJ 50,000 UNIT VIAL ONE (09:28)
[2018-07-06] MEDS ORDERED: BUPIVACAINE HCL 0.5%-EPI 1:200000 INJ/PF 30 ML VIAL ONE (09:28)
[2018-07-06] MEDS ORDERED: LIDOCAINE 1% INJ-PF (10 MG/ML) 30 ML SDV ONE (09:28)
[2018-07-06] MEDS ORDERED: ONDANSETRON HCL INJ/PF 4 MG/2 ML SDV IV PRN (09:58)
[2018-07-06] MEDS ORDERED: MORPHINE SULFATE 10 MG/ML INJ IV PRN (09:58)
[2018-07-06] MEDS ORDERED: FENTANYL CITRATE INJ/PF 100 MCG/2 ML AMPUL IV PRN ×3 (09:58)
[2018-07-06] MEDS ORDERED: DIPHENHYDRAMINE HCL 50 MG/ML VIAL IV PRN (09:58)
[2018-07-06] MEDS ORDERED: MEPERIDINE HCL/PF INJ 25 MG/1 ML DISP.SYRIN IV PRN (09:58)
[2018-07-06] MEDS ORDERED: IRBESARTAN 75 MG PO SCH (10:00)
[2018-07-06] MEDS ORDERED: PSEUDOEPHEDRINE HCL 120 MG PO SCH (10:00)
[2018-07-06] MEDS ORDERED: METHOTREXATE 15 MG PO SCH (10:00)
[2018-07-06] MEDS ORDERED: (PENDING PHARMACY ID) (Cholecalciferol (Vitamin D3) [Vitamin D3] 5,000 UNIT) PO SCH (10:00)
[2018-07-06] MEDS ORDERED: NAPROXEN SODIUM 220 MG PO SCH (10:00)
[2018-07-06] MEDS ORDERED: (PENDING PHARMACY ID) (Rosuvastatin Calcium [Crestor 20 Mg Tablet] 20 MG) PO SCH (10:00)
--- NOTE | 2018-07-06 10:24 | Operative Report ---
Operative Report DATE OF SURGERY: 07/06/18 PREOPERATIVE DIAGNOSIS: Wound drainage right distal thigh status post hardware removal OPERATION: Irrigation debridement packing with iodoform gauze SURGEON: SWEETIE BRODY ANESTHESIA: GA TISSUE REMOVED OR ALTERED: Fluid and tissue sent to microbiology ESTIMATED BLOOD LOSS: 50 PROCEDURE: The patient supine Afrin table the right looks and was prepped and draped sterile fashion. The wound is open with manual pressure and cultures are taken and sent. The wound was explored digitally. There is no communication with the underlying knee joint. The wound does track down to the lateral surface of the femur in line with the previous hardware removal. There is no effusion in the knee. Pressing on the knee does not emanate fluid from the wound. Having said this I fully understand that the hardware that was removed was in continuity with an underlying intramedullary nail which likewise is in continuity with the knee. Decision is made to irrigate and debride the wound primarily. Is irrigated with 3 L normal seventh and a bacitracin and 3 L normal saline using pulse lavage. Is then debrided sharply. Is packed with iodoform gauze. Sutures were placed in the skin to decrease the capping of the wound. A sterile compressive dressing was applied. The patient's return to the PACU in satisfactory condition.
[2018-07-06] MEDS ORDERED: DEXAMETHASONE SOD PHOSPHATE INJ 4 MG/1 ML VIAL ONE ×2 (10:42)
[2018-07-06] MEDS ORDERED: ACETAMINOPHEN 0 MG/0 ML RTUPB IV ONE (10:43)
[2018-07-06] MEDS: FENTANYL CITRATE INJ/PF 100 MCG/2 ML AMPUL ONE ×3 (10:50→11:04)
[2018-07-06] MEDS ORDERED: TRAMADOL HCL 50 MG TABLET PO PRN (10:51)
[2018-07-06] MEDS ORDERED: RINGERS SOLUTION,LACTATED 1,000 ML IV PRN (10:57)
[2018-07-06] MEDS: FOLIC ACID 1 MG TABLET PO SCH (14:00)
[2018-07-06] MEDS: FERROUS SULFATE 325 MG TABLET PO SCH (14:01)
[2018-07-06] MEDS: FUROSEMIDE 20 MG TABLET PO SCH (14:01)
[2018-07-06] MEDS ORDERED: METHOTREXATE SODIUM 2.5 MG TABLET PO ONE (15:30)
[2018-07-06] MEDS: VANCOMYCIN HCL 1,500 MG in DEXTROSE 5%-WATER 250 ML IV SCH ×2 (16:29→22:54)
[2018-07-06] MEDS ORDERED: VANCOMYCIN HCL 1,000 MG in DEXTROSE 5%-WATER 250 ML IV ONE (20:00)
[2018-07-06] MEDS: CEFTRIAXONE 2 GM/D5W RTU 2 GM/50 ML RTUPB IV SCH (20:49)
[2018-07-06] MEDS ORDERED: (PENDING PHARMACY ID) (Tizanidine Hcl [Zanaflex] 2 MG) PO SCH (22:00)
[2018-07-06] MEDS ORDERED: DIPHENHYDRAMINE PO SCH (22:00)
[2018-07-06] MEDS ORDERED: NAPROXEN SOD PO SCH (22:00)
[2018-07-06] MEDS: TIZANIDINE HCL 4 MG TABLET PO SCH (22:54)
[2018-07-06] MEDS: TRAZODONE HCL 50 MG TABLET PO SCH (22:54)
[2018-07-06] MEDS: SERTRALINE HCL 50 MG TABLET PO SCH (22:54)
[2018-07-06] MEDS: ATORVASTATIN CALCIUM 40 MG TABLET PO SCH (23:05)
[2018-07-06] MEDS: ZONISAMIDE 100 MG CAPSULE PO SCH (23:05)
[2018-07-07] MEDS: VANCOMYCIN HCL 1,500 MG in DEXTROSE 5%-WATER 250 ML IV SCH ×2 (05:10→14:05)
--- NOTE | 2018-07-07 07:03 | PDOC PROGRESS REPORT ---
Subjective Progress Note for:: 07/07/18 Reason For Visit: RIGHT KNEE PAIN, WOUND INFECTION 52-year-old white female now postop day 1 status post I&D of a right distal anterior lateral thigh wound. Patient with some symptomatic improvement overnight. She remains afebrile. Physical Exam Vital Signs: Temp Pulse Resp BP Pulse Ox 36.6 C 70 18 112/61 92 07/07/18 04:40 07/07/18 04:40 07/07/18 04:40 07/07/18 04:40 07/07/18 04:40 Intake & Output 07/06/18 07/07/18 07/08/18 06:59 06:59 06:59 Intake Total 2090 9190 Output Total 240 10 Balance 1850 9180 Weight 102 kg 102 kg Physical Exam: Overweight middle-aged white female lying in a hospital bed in minor distress. General appearance: PRESENT: mild distress, obese Head exam: PRESENT: normocephalic Respiratory exam: PRESENT: unlabored Cardiovascular exam: PRESENT: RRR Pulses: PRESENT: +1 pedal pulses bilateral Vascular exam: PRESENT: normal capillary refill GI/Abdominal exam: PRESENT: soft Rectal exam: PRESENT: deferred Extremities exam: PRESENT: other - Right lower extremity dressing clean dry and intact Neurological exam: PRESENT: alert, awake, oriented to person, oriented to place, oriented to time, oriented to situation. ABSENT: motor sensory deficit Psychiatric exam: PRESENT: appropriate affect, normal mood. ABSENT: homicidal ideation, suicidal ideation Skin exam: PRESENT: dry, intact, warm. ABSENT: cyanosis, rash Results Laboratory Results: 07/05/18 07:47 07/04/18 16:45 Status: Imported from PACS Assessment & Plan - Diagnosis (1) Wound drainage status post hardware mack Is this a current diagnosis for this admission?: Yes Plan: Cultures growing a group B strep. Antibiotics changed from vancomycin to Clinda mycin. - Time Time Spent with patient: 15-24 minutes Anticipated discharge: Home with Homehealth Within: within 24 hours
[2018-07-07 07:19] LABS: HEMATOCRIT 29.1 % (36.0-47.0); HEMOGLOBIN 10.1 g/dL (12.0-15.5); MEAN CORPUSCULAR HEMOGLOBIN 29.1 pg (27.0-33.4); MEAN CORPUSCULAR HGB CONC 34.7 g/dL (32.0-36.0); MEAN CORPUSCULAR VOLUME 84 fl (80-97); PLATELET COUNT 137 10^3/uL (150-450); RED BLOOD COUNT 3.47 10^6/uL (3.72-5.28); RED CELL DISTRIBUTION WIDTH 15.8 % (11.5-14.0); WHITE BLOOD COUNT 6.9 10^3/uL (4.0-10.5)
[2018-07-07 07:43] LABS: ANION GAP 8 (5-19); BLOOD UREA NITROGEN 6 mg/dL (7-20); CALCIUM 8.6 mg/dL (8.4-10.2); CARBON DIOXIDE 25 mmol/L (22-30); CHLORIDE 107 mmol/L (98-107); GLUCOSE 152 mg/dL (75-110); POTASSIUM 3.6 mmol/L (3.6-5.0); SODIUM 139.8 mmol/L (137-145)
[2018-07-07 07:56] LABS: C-REACTIVE PROTEIN 259.8 mg/L (<10.0)
[2018-07-07 08:00] LABS: ERYTHROCYTE SEDIMENTATION RATE 50 mm/hr (0-30)
[2018-07-07] MEDS: CHOLECALCIFEROL (D3) 1,000 UNIT TABLET PO SCH (09:20)
[2018-07-07] MEDS: NAPROXEN 250 MG TABLET PO SCH (09:20)
[2018-07-07] MEDS: ASPIRIN 81 MG TABLET, ENT COATED PO SCH (09:25)
[2018-07-07] MEDS: FERROUS SULFATE 325 MG TABLET PO SCH (09:25)
[2018-07-07] MEDS: FUROSEMIDE 20 MG TABLET PO SCH (09:25)
[2018-07-07] MEDS: MULTIVITAMIN TABLET PO SCH (09:28)
[2018-07-07] MEDS: FOLIC ACID 1 MG TABLET PO SCH (09:28)
[2018-07-07] MEDS: RINGERS SOLUTION,LACTATED 1,000 ML IV PRN (09:30)
[2018-07-07] MEDS: LOSARTAN POTASSIUM 25 MG TABLET PO SCH (09:49)
[2018-07-07 14:27] LABS: VANCOMYCIN,TROUGH 14.9 ug/mL (5.0-20.0)
[2018-07-07] MEDS: TIZANIDINE HCL 4 MG TABLET PO SCH (21:26)
[2018-07-07] MEDS: ATORVASTATIN CALCIUM 40 MG TABLET PO SCH (21:26)
[2018-07-07] MEDS: SERTRALINE HCL 50 MG TABLET PO SCH (21:26)
[2018-07-07] MEDS: ZONISAMIDE 100 MG CAPSULE PO SCH (21:26)
[2018-07-07] MEDS: TRAZODONE HCL 50 MG TABLET PO SCH (21:27)
[2018-07-08] MEDS: HYDROCODONE/ACETAMINOPHEN 5-325 MG TABLET PO PRN ×2 (00:17→08:41)
[2018-07-08] MEDS: CLINDAMYCIN HCL 150 MG CAPSULE PO SCH ×3 (00:17→13:31)
--- NOTE | 2018-07-08 07:33 | PDOC PROGRESS REPORT ---
Subjective Progress Note for:: 07/08/18 Reason For Visit: RIGHT KNEE PAIN, WOUND INFECTION 52-year-old female status post I&D of her right distal thigh wound with subsequent cultures of Streptococcus. Patient changed from broad-spectrum antibiotics to IV clindamycin yesterday. Patient is remained afebrile. Patient continues to complain complain of pain and functional disability. Physical Exam Vital Signs: Temp Pulse Resp BP Pulse Ox 36.5 C 70 20 120/69 96 07/08/18 03:55 07/08/18 03:55 07/08/18 03:55 07/08/18 03:55 07/08/18 03:55 Intake & Output 07/07/18 07/08/18 07/09/18 06:59 06:59 06:59 Intake Total 48861 1700 Output Total 10 Balance 01585 1700 Weight 102 kg 104.4 kg General appearance: PRESENT: mild distress, obese, well-nourished Head exam: PRESENT: normocephalic Respiratory exam: PRESENT: unlabored Cardiovascular exam: PRESENT: RRR GI/Abdominal exam: PRESENT: soft Rectal exam: PRESENT: deferred Musculoskeletal exam: PRESENT: other - Right lower extremity dressings taken down today. Wound is well approximated with 2 nylon sutures and packing underneath. There is scant serous drainage. The previous erythematous lungs have resolved. Neurological exam: PRESENT: alert, awake, oriented to person, oriented to place, oriented to time, oriented to situation. ABSENT: motor sensory deficit Psychiatric exam: PRESENT: appropriate affect, normal mood. ABSENT: homicidal ideation, suicidal ideation Skin exam: PRESENT: dry, intact, warm. ABSENT: cyanosis, rash Results Laboratory Results: 07/07/18 06:43 07/07/18 06:43 07/07/18 07/07/18 06:43 06:43 WBC 6.9 RBC 3.47 L Hgb 10.1 L Hct 29.1 L MCV 84 MCH 29.1 MCHC 34.7 RDW 15.8 H Plt Count 137 L Sodium 139.8 Potassium 3.6 Chloride 107 Carbon Dioxide 25 Anion Gap 8 BUN 6 L Creatinine 0.44 L Est GFR ( Amer) > 60 Est GFR (Non-Af Amer) > 60 Glucose 152 H Calcium 8.6 C-Reactive Protein 259.8 H Status: Imported from PACS Assessment & Plan - Diagnosis (1) Wound drainage status post hardware mack Is this a current diagnosis for this admission?: Yes Plan: Continue IV clindamycin. PICC line to be placed today. Anticipate at least 2 weeks of IV antibiotic therapy is not 6. - Time Time Spent with patient: 15-24 minutes Anticipated discharge: Home with Homehealth Within: within 72 hours
--- NOTE | 2018-07-08 11:20 | RADIOLOGY REPORT (SQ) ---
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 TECHNIQUE: Fluoroscopic and ultrasound guided PICC placement. LIMITATIONS: None. PROCEDURE: After written consent and assessment were obtained, the patient was brought into the fluo roscopy room and placed supine on the table. Ultrasound evaluation of potential access sites were per formed. After successfully identifying a patent right basilic vein, the right arm was prepped and alirio ped in a sterile fashion along with the ultrasound probe. The entry site was anesthetized with 1% lid ocaine. A 21 gauge 7 cm needle was advanced through the skin and into the basilic vein under live ult rasound guidance. An ultrasound image was saved to PACS confirming access site. A .018 guide wire w as then inserted through the needle and into the venous system. The needle was then removed and an 11 blade scalpel was used to make a 1cm skin incision. A 5 fr peel-away sheath was advanced over the w casey and into the venous system. A measurement was then made using the existing wire and live fluorosc opic guidance. The wire was then removed and trimmed. The PICC was advanced through the peel-away she ath and into the venous system. The peel-away sheath was removed and the catheter was adhered to the patients arm with a stat lock. The catheter was then aspirated and flushed and a sterile bandage was placed over the access site. A fluoroscopic spot image was saved to PACS confirming the catheter tip within the superior vena cava. IMPRESSION: SUCCESSFUL PLACEMENT OF A 5 FR DUAL LUMEN 40 CM PICC IN THE RIGHT BASILIC VEIN. COMMENT: Patient medication list reviewed: Yes- Quality ID# 130:Eligible professional attests to doc umenting in the medical record they obtained, updated, or reviewed the patient's current medications. . Quality ID 145: Final reports for procedures using fluoroscopy that document radiation exposure tim cherri, or exposure time and number of fluorographic images (if radiation exposure indices are not avail able) Quality ID #76: The patient was prepped and draped using maximum sterile barrier technique including cap, mask, sterile gown, sterile gloves, a large sterile sheet, hand hygiene, and 2% Chlorhexidine fo r cutaneous antisepsis. When ultrasound is used, sterile ultrasound techniques are followed requiring sterile gel and sterile probes. TECHNICAL DOCUMENTATION: JOB ID: [id number] Medical Referral Source- All Rights Reserved rev-10/01 Reading location - IP/workstation name: [email or web address]
[2018-07-08] MEDS: MULTIVITAMIN TABLET PO SCH (12:40)
[2018-07-08] MEDS: ASPIRIN 81 MG TABLET, ENT COATED PO SCH (12:41)
[2018-07-08] MEDS: FERROUS SULFATE 325 MG TABLET PO SCH (12:41)
[2018-07-08] MEDS: FUROSEMIDE 20 MG TABLET PO SCH (12:42)
[2018-07-08] MEDS: CHOLECALCIFEROL (D3) 1,000 UNIT TABLET PO SCH (12:48)
[2018-07-08] MEDS: NAPROXEN 250 MG TABLET PO SCH (12:49)
[2018-07-08] MEDS: LOSARTAN POTASSIUM 25 MG TABLET PO SCH (12:49)
[2018-07-08] MEDS: CLINDAMYCIN 600 MG/D5W RTU 600 MG/50 ML RTUPB IV SCH ×2 (15:08→21:29)
[2018-07-08] MEDS: FOLIC ACID 1 MG TABLET PO SCH (16:29)
[2018-07-08] MEDS ORDERED: NORMAL SALINE 10 ML SDV (AFTER EACH USE) IV PRN (16:30)
[2018-07-08] MEDS: TRAZODONE HCL 50 MG TABLET PO SCH (21:30)
[2018-07-08] MEDS: ATORVASTATIN CALCIUM 40 MG TABLET PO SCH (21:30)
[2018-07-08] MEDS: ZONISAMIDE 100 MG CAPSULE PO SCH (21:30)
[2018-07-08] MEDS: SERTRALINE HCL 50 MG TABLET PO SCH (21:30)
[2018-07-08] MEDS: TIZANIDINE HCL 4 MG TABLET PO SCH (21:30)
[2018-07-08] MEDS: NORMAL SALINE 10 ML SDV (SCHEDULED) IV SCH (21:39)
[2018-07-09] MEDS: CLINDAMYCIN 600 MG/D5W RTU 600 MG/50 ML RTUPB IV SCH ×4 (02:40→22:33)
[2018-07-09] MEDS: MULTIVITAMIN TABLET PO SCH ×2 (07:57→09:35)
[2018-07-09] MEDS: HYDROCODONE/ACETAMINOPHEN 5-325 MG TABLET PO PRN ×2 (07:59→15:31)
[2018-07-09] MEDS: FUROSEMIDE 20 MG TABLET PO SCH (09:34)
[2018-07-09] MEDS: FOLIC ACID 1 MG TABLET PO SCH (09:34)
[2018-07-09] MEDS: FERROUS SULFATE 325 MG TABLET PO SCH (09:35)
[2018-07-09] MEDS: ASPIRIN 81 MG TABLET, ENT COATED PO SCH (09:35)
[2018-07-09] MEDS: LOSARTAN POTASSIUM 25 MG TABLET PO SCH (09:35)
[2018-07-09] MEDS: NAPROXEN 250 MG TABLET PO SCH (09:35)
[2018-07-09] MEDS: CHOLECALCIFEROL (D3) 1,000 UNIT TABLET PO SCH (09:36)
[2018-07-09] MEDS: NORMAL SALINE 10 ML SDV (SCHEDULED) IV SCH ×2 (09:37→22:36)
--- NOTE | 2018-07-09 15:06 | PDOC PROGRESS REPORT ---
Subjective Progress Note for:: 07/09/18 Subjective:: Patient lying in bed company. States her pain is continued to improve since operative procedure. Denies fever chills or sweats. Reason For Visit: RIGHT KNEE PAIN, WOUND INFECTION Physical Exam Vital Signs: Temp Pulse Resp BP Pulse Ox 98.1 F 70 18 122/59 L 96 07/09/18 08:10 07/09/18 08:10 07/09/18 08:10 07/09/18 08:10 07/09/18 08:10 Intake & Output 07/08/18 07/09/18 07/10/18 06:59 06:59 06:59 Intake Total 1700 450 50 Balance 1700 450 50 Weight 104.4 kg 104 kg Musculoskeletal exam: PRESENT: other - Right lower extremity: Dressing change today. Mild incisional erythema no streaking erythema or significant effusion. No active drainage from the surgical site. Knee range of motion 0 degrees - 75 degrees without discomfort. No calf tenderness. Negative Homans. Results Laboratory Results: 07/07/18 06:43 07/07/18 06:43 07/05/18 13:30 Knee - Right Gram Stain - Final 07/05/18 13:30 Knee - Right Wound Culture - Final Staphylococcus Aureus Group C Beta Streptococcus Enterococcus Faecalis(Group D) 07/06/18 09:52 Knee - Right Gram Stain - Final 07/06/18 09:52 Knee - Right Wound Culture - Final Staphylococcus Aureus Group C Beta Streptococcus No Anaerobic Organisms 07/06/18 09:52 Knee - Right Gram Stain - Final 07/06/18 09:52 Knee - Right Wound Culture - Final Group C Beta Streptococcus No Anaerobic Organisms Impressions: Guidance Fluoroscopy 07/08/18 00:00 IMPRESSION: SUCCESSFUL PLACEMENT OF A 5 FR DUAL LUMEN 40 CM PICC IN THE RIGHT BASILIC VEIN. Interventional Vascular Procedure 07/08/18 00:00 IMPRESSION: SUCCESSFUL PLACEMENT OF A 5 FR DUAL LUMEN 40 CM PICC IN THE RIGHT BASILIC VEIN. PICC Line Insertion 07/08/18 00:00 IMPRESSION: SUCCESSFUL PLACEMENT OF A 5 FR DUAL LUMEN 40 CM PICC IN THE RIGHT BASILIC VEIN. Assessment & Plan - Diagnosis (1) Wound infection Is this a current diagnosis for this admission?: Yes Plan: Status post I&D right lower extremity. Patient's cultures have demonstrated MSSA and Streptococcus. Patient currently on clindamycin. Anticipate IV antibiotics for possibly 2 weeks as long as 6 weeks given history of total knee arthroplasty.
[2018-07-09] MEDS: TRAZODONE HCL 50 MG TABLET PO SCH (22:34)
[2018-07-09] MEDS: ATORVASTATIN CALCIUM 40 MG TABLET PO SCH (22:36)
[2018-07-09] MEDS: TIZANIDINE HCL 4 MG TABLET PO SCH (22:37)
[2018-07-09] MEDS: ZONISAMIDE 100 MG CAPSULE PO SCH (22:37)
[2018-07-09] MEDS: SERTRALINE HCL 50 MG TABLET PO SCH (22:37)
[2018-07-10] MEDS: ACETAMINOPHEN 325 MG TABLET PO PRN (01:28)
[2018-07-10] MEDS: CLINDAMYCIN 600 MG/D5W RTU 600 MG/50 ML RTUPB IV SCH ×4 (03:55→21:03)
[2018-07-10] MEDS: HYDROCODONE/ACETAMINOPHEN 5-325 MG TABLET PO PRN ×2 (08:02→21:51)
[2018-07-10] MEDS: FUROSEMIDE 20 MG TABLET PO SCH (09:53)
[2018-07-10] MEDS: FOLIC ACID 1 MG TABLET PO SCH (09:53)
[2018-07-10] MEDS: ASPIRIN 81 MG TABLET, ENT COATED PO SCH (09:53)
[2018-07-10] MEDS: CHOLECALCIFEROL (D3) 1,000 UNIT TABLET PO SCH (09:54)
[2018-07-10] MEDS: MULTIVITAMIN TABLET PO SCH (09:54)
[2018-07-10] MEDS: FERROUS SULFATE 325 MG TABLET PO SCH (09:54)
[2018-07-10] MEDS: LOSARTAN POTASSIUM 25 MG TABLET PO SCH (09:55)
[2018-07-10] MEDS: NAPROXEN 250 MG TABLET PO SCH (09:55)
[2018-07-10] MEDS: NORMAL SALINE 10 ML SDV (SCHEDULED) IV SCH ×2 (09:56→21:02)
--- NOTE | 2018-07-10 13:48 | PDOC PROGRESS REPORT ---
Subjective Progress Note for:: 07/10/18 Subjective:: Patient lying in bed company. States her pain is continued to improve since operative procedure. c/o gas/burping since she began taking PO Abx Reason For Visit: RIGHT KNEE PAIN, WOUND INFECTION Physical Exam Vital Signs: Temp Pulse Resp BP Pulse Ox 98.1 F 82 16 109/54 L 94 07/10/18 11:21 07/10/18 11:21 07/10/18 11:21 07/10/18 11:21 07/10/18 11:21 Intake & Output 07/09/18 07/10/18 07/11/18 06:59 06:59 06:59 Intake Total 450 200 Balance 450 200 Weight 104 kg 104.4 kg Musculoskeletal exam: PRESENT: other - Right lower extremity: Packing change today. No active purulent drainage or expressible drainage. Small amount of incisional erythema. No evidence of knee effusion. No pain with knee range of motion. Results Laboratory Results: 07/07/18 06:43 07/07/18 06:43 07/04/18 20:20 Blood Blood Culture - Final NO GROWTH IN 5 DAYS 07/04/18 16:45 Blood Blood Culture - Final NO GROWTH IN 5 DAYS Impressions: Guidance Fluoroscopy 07/08/18 00:00 IMPRESSION: SUCCESSFUL PLACEMENT OF A 5 FR DUAL LUMEN 40 CM PICC IN THE RIGHT BASILIC VEIN. Interventional Vascular Procedure 07/08/18 00:00 IMPRESSION: SUCCESSFUL PLACEMENT OF A 5 FR DUAL LUMEN 40 CM PICC IN THE RIGHT BASILIC VEIN. PICC Line Insertion 07/08/18 00:00 IMPRESSION: SUCCESSFUL PLACEMENT OF A 5 FR DUAL LUMEN 40 CM PICC IN THE RIGHT BASILIC VEIN. Assessment & Plan - Diagnosis (1) Wound infection Is this a current diagnosis for this admission?: Yes Plan: Status post I&D right lower extremity. Patient's cultures have demonstrated MSSA and Streptococcus. Patient currently on clindamycin. Anticipate IV antibiotics for possibly 2 weeks as long as 6 weeks given history of total knee arthroplasty, awaiting discharge planning. We will also start patient on Gas-X, Pepto-Bismol for her recurrent reflux.
[2018-07-10] MEDS ORDERED: BUTALB/ACETAMINOPHEN/CAFFEINE 1 TAB EACH PO PRN ×2 (14:23→14:58)
[2018-07-10] MEDS ORDERED: MAG HYDROX/AL HYDROX/SIMETH SUSP 30 ML UDCUP PO PRN ×2 (14:23→14:57)
[2018-07-10] MEDS ORDERED: SIMETHICONE 80 MG TAB.CHEW PO PRN (14:24)
[2018-07-10] MEDS: TIZANIDINE HCL 4 MG TABLET PO SCH (21:03)
[2018-07-10] MEDS: ATORVASTATIN CALCIUM 40 MG TABLET PO SCH (21:04)
[2018-07-10] MEDS: TRAZODONE HCL 50 MG TABLET PO SCH (21:04)
[2018-07-10] MEDS: ZONISAMIDE 100 MG CAPSULE PO SCH (21:04)
[2018-07-10] MEDS: SERTRALINE HCL 50 MG TABLET PO SCH (21:04)
[2018-07-11] MEDS: CLINDAMYCIN 600 MG/D5W RTU 600 MG/50 ML RTUPB IV SCH ×4 (03:48→20:43)
[2018-07-11] MEDS: FUROSEMIDE 20 MG TABLET PO SCH (09:50)
[2018-07-11] MEDS: FOLIC ACID 1 MG TABLET PO SCH (09:50)
[2018-07-11] MEDS: ASPIRIN 81 MG TABLET, ENT COATED PO SCH (09:50)
[2018-07-11] MEDS: MULTIVITAMIN TABLET PO SCH (09:50)
[2018-07-11] MEDS: CHOLECALCIFEROL (D3) 1,000 UNIT TABLET PO SCH (09:51)
[2018-07-11] MEDS: FERROUS SULFATE 325 MG TABLET PO SCH (09:51)
[2018-07-11] MEDS: NAPROXEN 250 MG TABLET PO SCH (09:51)
[2018-07-11] MEDS: LOSARTAN POTASSIUM 25 MG TABLET PO SCH (09:52)
[2018-07-11] MEDS: NORMAL SALINE 10 ML SDV (SCHEDULED) IV SCH ×2 (09:55→22:04)
[2018-07-11] MEDS: HYDROCODONE/ACETAMINOPHEN 5-325 MG TABLET PO PRN (10:05)
[2018-07-11] MEDS: TRAMADOL HCL 50 MG TABLET PO PRN (14:28)
[2018-07-11] MEDS ORDERED: HYDROMORPHONE HCL 2 MG TABLET PO PRN ×2 (18:35)
[2018-07-11] MEDS: TIZANIDINE HCL 4 MG TABLET PO SCH (21:58)
[2018-07-11] MEDS: ATORVASTATIN CALCIUM 40 MG TABLET PO SCH (21:58)
[2018-07-11] MEDS: ZONISAMIDE 100 MG CAPSULE PO SCH (21:58)
[2018-07-11] MEDS: TRAZODONE HCL 50 MG TABLET PO SCH (21:58)
[2018-07-11] MEDS: SERTRALINE HCL 50 MG TABLET PO SCH (21:59)
[2018-07-12] MEDS: CLINDAMYCIN 600 MG/D5W RTU 600 MG/50 ML RTUPB IV SCH ×2 (02:32→13:15)
--- NOTE | 2018-07-12 07:01 | PDOC DISCHARGE SUMMARY ---
General - Admit/Disc Date/PCP Admission Date/Primary Care Provider: 07/05/18 15:14 YARELI GONZALEZ MD Discharge Date: 07/12/18 - Discharge Diagnosis (1) Wound drainage status post hardware mack Is this a current diagnosis for this admission?: Yes - Additional Information Resuscitation Status: Full Code Home Medications: Furosemide [Lasix 20 mg Tablet] 20 mg PO DAILY 10/30/16 Rosuvastatin Calcium [Crestor 20 mg Tablet] 20 mg PO DAILY 10/30/16 Sertraline HCl [Zoloft 50 mg Tablet] 50 mg PO QHS 10/30/16 Tizanidine HCl [Zanaflex] 2 mg PO QHS 10/30/16 Trazodone HCl [Desyrel 50 mg Tablet] 50 mg PO QHS 10/30/16 Zolmitriptan [Zomig] 5 mg PO ASDIR PRN 10/30/16 Zonisamide [Zonegran 100 mg Capsule] 100 mg PO QHS 10/30/16 Cholecalciferol (Vitamin D3) [Vitamin D3] 5,000 unit PO DAILY 06/20/18 Cyanocobalamin (Vitamin B-12) [Vitamin B-12] 1,000 mcg PO .MONTHLY PRN 06/20/18 Folic Acid [Folvite 1 mg Tablet] 1 mg PO DAILY 06/20/18 Irbesartan 75 mg PO DAILY 06/20/18 Methotrexate [Xatmep] 15 mg PO WE@1000 PRN 06/20/18 Naproxen Sod/Diphenhydramine [Aleve Pm Caplet] 1 each PO QHS 06/20/18 Naproxen Sodium [Aleve] 220 mg PO DAILY 06/20/18 Pseudoephedrine HCl [Sudafed 12 Hour] 120 mg PO DAILY 06/20/18 Ferrous Sulfate [Feosol 325 mg Tablet] 325 mg PO DAILY 07/04/18 Hydrocodone Bit/Acetaminophen [Hydrocodon-Acetaminophen 5-325] 1 each PO Q6HP PRN 07/04/18 Multivitamin [Tab-A-Amy (Multiple Vitamin) Tablet] 1 tab PO DAILY 07/04/18 History of Present Illness History of Present Illness: The patient is a 52-year-old white female status post open reduction internal fixation of a right distal femoral periprosthetic fracture with subsequent prominent hardware. Patient underwent hardware removal and subsequently had persistent serous wound drainage. She is admitted for an I&D of the wound. Hospital Course Hospital Course: She undergoes an I&D of the right distal thigh wound. Culture subsequent growth staph, strep, and enterococcus. Patient is maintained on IV clindamycin and make slow steady progress. A PICC line is placed for IV access. Complaints of a headache lead to a pain management consult and the administration of Dilaudid. Patient's mobilized with physical therapy and weightbearing as tolerated basis. Physical Exam Vital Signs: Temp Pulse Resp BP Pulse Ox 36.6 C 59 L 16 132/62 H 98 07/12/18 02:40 07/12/18 02:40 07/12/18 02:40 07/12/18 02:40 07/12/18 02:40 Intake & Output 07/10/18 07/11/18 07/12/18 06:59 06:59 06:59 Intake Total 949 714 8663 Balance 129 238 9819 Weight 104.4 kg General appearance: PRESENT: no acute distress, obese, well-nourished Head exam: PRESENT: normocephalic Respiratory exam: PRESENT: unlabored Cardiovascular exam: PRESENT: RRR Pulses: PRESENT: +1 pedal pulses bilateral Vascular exam: PRESENT: normal capillary refill GI/Abdominal exam: PRESENT: soft Rectal exam: PRESENT: deferred Extremities exam: PRESENT: other - Right lower extremity wound is approximated with sutures and packing is intact underneath it. Neurological exam: PRESENT: alert, awake, oriented to person, oriented to place, oriented to time, oriented to situation. ABSENT: motor sensory deficit Psychiatric exam: PRESENT: appropriate affect, normal mood. ABSENT: homicidal ideation, suicidal ideation Results Laboratory Results: 07/07/18 06:43 07/07/18 06:43 Impressions: Guidance Fluoroscopy 07/08/18 00:00 IMPRESSION: SUCCESSFUL PLACEMENT OF A 5 FR DUAL LUMEN 40 CM PICC IN THE RIGHT BASILIC VEIN. Interventional Vascular Procedure 07/08/18 00:00 IMPRESSION: SUCCESSFUL PLACEMENT OF A 5 FR DUAL LUMEN 40 CM PICC IN THE RIGHT BASILIC VEIN. PICC Line Insertion 07/08/18 00:00 IMPRESSION: SUCCESSFUL PLACEMENT OF A 5 FR DUAL LUMEN 40 CM PICC IN THE RIGHT BASILIC VEIN. Status: Imported from PACS Qualifiers - * PATIENT BEING DISCHARGED WITH ANY OF THE FOLLOWING DIAGNOSIS: No VTE patient discharged on overlapping Therapy?: Yes Plan Discharge Plan: Patient be discharged home with home health services including 2 weeks of IV antibiotic administration and ongoing physical therapy.
[2018-07-12] MEDS: MULTIVITAMIN TABLET PO SCH (11:20)
[2018-07-12] MEDS: CHOLECALCIFEROL (D3) 1,000 UNIT TABLET PO SCH (11:21)
[2018-07-12] MEDS: FUROSEMIDE 20 MG TABLET PO SCH (11:22)
[2018-07-12] MEDS: FERROUS SULFATE 325 MG TABLET PO SCH (11:22)
[2018-07-12] MEDS: LOSARTAN POTASSIUM 25 MG TABLET PO SCH (11:24)
[2018-07-12] MEDS: ASPIRIN 81 MG TABLET, ENT COATED PO SCH (11:24)
[2018-07-12] MEDS: FOLIC ACID 1 MG TABLET PO SCH (11:29)
[2018-07-12] MEDS: NORMAL SALINE 10 ML SDV (SCHEDULED) IV SCH (11:29)
[2018-07-12] MEDS: NAPROXEN 250 MG TABLET PO SCH (11:30)
[2018-07-12] MEDS ORDERED: DAPTOMYCIN 500 MG in NORMAL SALINE 50 ML IV SCH (12:00)
[2018-07-12 13:29] VITALS: BP 114/69
--- NOTE | 2018-07-12 20:18 | CONSULTATION REPORT E ---
Consultation Report NAME: CHELSEY OSORIO : 1965 AGE: 52Y DATE: 07/11/2018 ROOM: 209 A TO: SERGIO MERCADO PA-C FROM: Moose MORELOS, Requesting Physician PAIN MANAGEMENT CONSULTATION CHIEF COMPLAINT: Right knee pain. HISTORY OF PRESENT ILLNESS: She is status post a right knee revision and hardware removal on 06/22/18. She had drainage for 2 weeks. She was admitted on 07/04 for an infection in the knee. Started on IV antibiotics and wound care. Her pain stays at about a 4-5/5. [place] without relief, but takes as needed outpatient and causes itching, but takes Benadryl with it. Notes that she has unilateral episodic diaphragmatic paralysis that is not affected by the opioids per the patient. She notes that Dilaudid and morphine in the past were effective, she believes. She also notes she has had a migraine since being admitted, it is not alleviated with the Fioricet so far. She takes Zomig and Relpax at home as needed. PAST MEDICAL HISTORY: 1. Hypertension. 2. Hyperlipidemia. 3. Diaphragmatic paralysis, episodic. 4. Migraines. 5. Arthritis of undiagnosed etiology. 6. Iron deficiency anemia. PAST SURGICAL HISTORY: 1. She has had 10 knee surgeries total, including bilateral TKAs and a recent revision on the right hand side. 2. She had an ORIF on the right ankle and femur in 06/2016. 3. She has had a and gastric bypass. SOCIAL HISTORY: She does not smoke or use illicit drugs. She drinks alcohol occasionally. She walks for exercise when she is physically able. FAMILY HISTORY: Not applicable. MEDICATIONS: See MAR. ALLERGIES: 1. LYRICA, CAUSES SWELLING. 2. OPIOIDS CAUSE ITCHING. 3. PROMETHAZINE CAUSES MORE NAUSEA, VOMITING. 4. MIDAZOLAM (unknown reaction). REVIEW OF SYSTEMS: Right knee pain. Denies nausea, vomiting, fever, chills, constipation, incontinence, altered mental status. PHYSICAL EXAMINATION: VITAL SIGNS: Completed at 1559: temperature was 98.5, pulse was 70, blood pressure was 119/69, respirations were 15, O2 was 93% on room air. GENERAL: She is a well-developed, well-nourished female in no acute distress. EYES: Grossly ful EOMI. CARDIOVASCULAR: Regular rate and rhythm. No pitting edema of the lower extremities. LUNGS: Clear to auscultation bilaterally. EXTREMITIES: There is scarring noted on the left knee. The right knee is propped up on a pillow; the bandages are clean, dry, and intact. There is no significant edema in the distal right lower extremity. Sensation is intact. NEUROLOGIC: She is alert and oriented x3. ASSESSMENT: 1. Right knee pain. 2. Infection of the right knee, status post hardware removal. 3. Migraine unspecified. PLAN: 1. We are going to discontinue [place] and tramadol. 2. We will try Dilaudid 2 mg p.r.n. pain level 1-3/5 and 4 mg for pain 4-5/5. 3. The patient took her own Relpax in her room today, which was , but if this is not effective in alleviating her migraine I ordered Zomig, that may be taken over 2 hours after the Relpax if it is not effective, 1 time dose only. DICTATING PHYSICIAN: LADAN DECKER PA-C [id number] PHY#: [id number] ID: [id number] JOB#: [id number] ACCT: [id number] cc:SERGIO MERCADO PA-C > MTDD
[2018-07-13] MEDS ORDERED: METHOTREXATE SODIUM 2.5 MG TABLET PO SCH (10:00)
== END 2018-07-12 18:05 | disposition home health service (06) | DRG 858 ==
LOC: ER 13:32 → EH 16:37 → 2N 22:20 → OBSVTOIN 07-05 15:14
PROVIDERS: ADMIT Orthopaedic Surgery; ATTEND Orthopaedic Surgery
PROC: 0JBL0ZZ Excision of Right Upper Leg Subcutaneous Tissue and Fascia, Open Approach (ICD-10-PCS; principal; 2018-07-06 09:00)
PROC: 02HV33Z Insertion of Infusion Device into Superior Vena Cava, Percutaneous Approach (ICD-10-PCS; 2018-07-08)
PROC: B548ZZA Ultrasonography of Superior Vena Cava, Guidance (ICD-10-PCS; 2018-07-08)
PROC: B518ZZA Fluoroscopy of Superior Vena Cava, Guidance (ICD-10-PCS; 2018-07-08)
DX: T81.49XA Infection following a procedure, other surgical site, initial encounter (principal); E78.5 Hyperlipidemia, unspecified; I10 Essential (primary) hypertension; I95.9 Hypotension, unspecified; Y83.8 Other surgical procedures as the cause of abnormal reaction of the patient, or of later complication, without mention of misadventure at the time of the procedure; D72.829 Elevated white blood cell count, unspecified; L40.50 Arthropathic psoriasis, unspecified; D50.9 Iron deficiency anemia, unspecified; B95.61 Methicillin susceptible Staphylococcus aureus infection as the cause of diseases classified elsewhere; Z96.653 Presence of artificial knee joint, bilateral; B95.4 Other streptococcus as the cause of diseases classified elsewhere; B95.2 Enterococcus as the cause of diseases classified elsewhere; G43.909 Migraine, unspecified, not intractable, without status migrainosus; Z79.899 Other long term (current) drug therapy; Z98.84 Bariatric surgery status; Z88.5 Allergy status to narcotic agent; Z88.8 Allergy status to other drugs, medicaments and biological substances
CPT/HCPCS: 00400; 36415; 36569; 76937; 77001; 80048; 80202; 85025; 85027; 85652; 86140; 87040; 87070; 87075; 87077; 87186; 87205; 96365; 96375; 99284; A6266; C1769; J0131; J0696; J0878; J1100; J1170; J1642; J2250; J2270; J2405; J2704; J3010; J3370; J3490; J7030; J7060; J7120; J8610

== ENCOUNTER 2018-08-17 19:02 | Emergency (ER) | payer BC, OTHER ==
--- NOTE | 2018-08-17 19:43 | ER Document Report ---
ED GI/ - General Chief Complaint: Abdominal Pain Stated Complaint: ABDOMINAL PAIN Time Seen by Provider: 08/17/18 19:42 Primary Care Provider: SWEETIE BRODY MD [ACTIVE STAFF] - Follow up as needed Mode of Arrival: Ambulatory Information source: Patient Notes: HISTORY OF PRESENT ILLNESS: Patient is a 52-year-old female with a past medical history of gastric bypass in 2003 who presents with diffuse abdominal pain that began several days ago but worsened today. Location: Diffuse abdomen Onset: Gradual Alleviation: None Provocation: Movement, having a bowel movement Quality: Aching Radiation: Throughout the abdomen Severity: Moderate Timing: Constant History of abdominal surgery: Yes Associated symptoms: Nausea but no vomiting, no fevers or chills Last bowel movement: Today and normal Last menstrual period: "Years" REVIEW OF SYSTEMS: CONSTITUTIONAL : Denies fever or chills, no sweats. Denies recent illness. EENT: Denies eye, ear, throat, or mouth pain or symptoms. Denies nasal or sinus congestion. CARDIOVASCULAR: Denies chest pain. Denies swelling of the legs. RESPIRATORY: Denies cough, cold, or chest congestion. Denies shortness of breath or difficulty breathing. Denies wheezing. GASTROINTESTINAL: Positive for abdominal pain. Positive for nausea but no vomiting or diarrhea. Denies constipation. GENITOURINARY: Denies difficulty urinating, painful urination, burning, frequency, or blood in urine. FEMALE GENITOURINARY: Denies vaginal bleeding, abnormal or irregular periods. MUSCULOSKELETAL: Denies neck or back pain or joint pain or swelling. SKIN: Denies rash or skin lesions. HEMATOLOGIC : Denies easy bruising or bleeding. LYMPHATIC: Denies swollen, enlarged glands. NEUROLOGICAL: Denies altered mental status or loss of consciousness. Denies headache. Denies weakness or paralysis or loss of use of either side. Denies problems with gait or speech. Denies sensory or motor loss. PSYCHIATRIC: Denies anxiety or stress or depression. All other systems reviewed and negative. PHYSICAL EXAMINATION: GENERAL: Well-appearing, well-nourished and in no acute distress. HEAD: Atraumatic, normocephalic. No scalp deformity, depression, or crepitance. EYES: Pupils are 3 mm and equal/round/reactive to light, extraocular movements intact, sclera anicteric, conjunctiva are normal. ENT: Nares patent bilaterally, oropharynx. Moist mucous membranes. No tonsil hypertrophy. NECK: Normal range of motion, supple without lymphadenopathy. LUNGS: Breath sounds present, equal, and clear to auscultation bilaterally. No wheezes, rales, or rhonchi. HEART: Regular rate and rhythm without murmurs, rubs, or gallops. 2+ peripheral pulses. Normal capillary refill. ABDOMEN: Soft without distention, mild to moderate diffuse upper tenderness without localization. Normoactive bowel sounds. No guarding, no rebound. No masses appreciated. BACK: Normal contour, no midline tenderness. Rectal exam deferred. GENITAL/PELVIC: Deferred. EXTREMITIES: Normal range of motion, no pitting or edema. No cyanosis. NEUROLOGICAL: No focal neurological deficits. Moves all extremities spontaneously and on command. PSYCH: Normal mood, normal affect. No suicidal thoughts/ideations. No homocidal thoughts/ideations. No hallucinations. SKIN: Warm, dry, normal turgor, no rashes or lesions noted. ASSESSMENT AND PLAN: This patient is a 52-year-old female who presents with abdominal pain. Could represent colitis versus enteritis versus adhesions. 1. Will obtain labs, urine, CT scan of the abdomen/pelvis, and reassess after IV fluids and morphine. 2. Will likely discharge home if workup is unremarkable and patient is improved. TRAVEL OUTSIDE OF THE [place] IN LAST 30 DAYS: No - Related Data Allergies/Adverse Reactions: midazolam [From Versed] Allergy (Severe, Verified 08/17/18 19:02) promethazine [From Phenergan] Allergy (Severe, Verified 08/17/18 19:02) red dye Allergy (Severe, Verified 08/17/18 19:02) hydrocodone Adverse Reaction (Mild, Verified 08/17/18 19:02) Pruritis oxycodone Adverse Reaction (Mild, Verified 08/17/18 19:02) Pruritis pregabalin [From Lyrica] Adverse Reaction (Verified 08/17/18 19:02) Generalized edema Past Medical History - General Information source: Patient - Social History Smoking Status: Never Smoker Chew tobacco use (# tins/day): No Frequency of alcohol use: None Drug Abuse: None Lives with: Family Family History: Reviewed & Not Pertinent Patient has suicidal ideation: No Patient has homicidal ideation: No - Past Medical History Cardiac Medical History: Reports: Hx Hypercholesterolemia, Hx Hypertension - IRBESARTIN Denies: Hx Coronary Artery Disease, Hx Heart Attack Pulmonary Medical History: Reports: Hx Pneumonia - 2017 Denies: Hx Asthma, Hx Bronchitis, Hx COPD EENT Medical History: Reports: None Neurological Medical History: Reports: Hx Migraine. Denies: Hx Cerebrovascular Accident, Hx Seizures Endocrine Medical History: Reports: None Renal/ Medical History: Reports: Hx Kidney Stones. Denies: Hx Peritoneal Dialysis Malignancy Medical History: Reports: None GI Medical History: Reports: None Musculoskeletal Medical History: Reports Hx Arthritis - PSORIATIC ARTHRITIS Skin Medical History: Reports None Psychiatric Medical History: Reports: None Traumatic Medical History: Reports: None Infectious Medical History: Reports: None Past Surgical History: Reports: Hx Breast Surgery - reduction, Hx Section, Hx Gastric Bypass Surgery, Hx Orthopedic Surgery - Status post open reduction internal fixation of a right distal femoral fritz, Other - Sphenocath - Immunizations Hx Diphtheria, Pertussis, Tetanus Vaccination: Yes Physical Exam - Vital signs Vitals: Temp Pulse Resp BP Pulse Ox 97.9 F 79 18 173/89 H 97 08/17/18 19:10 08/17/18 19:10 08/17/18 19:10 08/17/18 19:10 08/17/18 19:10 Course - Re-evaluation Re-evalutation: 08/18/18 00:59 Labs are unremarkable and CT scan does not show acute intra-peritoneal pathology. Patient will be discharged home with return precautions and follow- up with her regular physician. Patient voices both understanding and agreeing with the plan. - Vital Signs Vital signs: Temp Pulse Resp BP Pulse Ox 97.8 F 63 18 147/65 H 98 08/18/18 01:29 08/18/18 01:29 08/18/18 01:29 08/18/18 01:29 08/18/18 01:29 - Laboratory Result Diagrams: 08/17/18 19:37 08/17/18 19:37 Laboratory results interpreted by me: 08/17/18 08/17/18 19:37 19:37 Hct 35.6 L RDW 15.9 H Chloride 110 H - Diagnostic Test Radiology reviewed: Image reviewed, Reports reviewed Discharge - Discharge Clinical Impression: Abdominal pain Qualifiers: Abdominal location: generalized Qualified Code(s): R10.84 - Generalized abdominal pain Condition: Good Disposition: HOME, SELF-CARE Instructions: Abdominal Pain ([facility]) Additional Instructions: You have been evaluated in the Emergency Department for abdominal pain. While here, you had blood work that was normal and a CAT scan of your abdomen/pelvis that also was normal and it is now safe to be discharged home. Please follow-up with your primary physician as instructed in 1 week to be rechecked. Return to the Emergency Department if you experience worsening pain, bloody stools, high fevers, or any other concerning symptoms. Prescriptions: L.acid/B.animalis,Bifi,Inf,Wilmar [5X Probiotic Capsule] 1 each PO ASDIR PRN #120 capsule PRN Reason: Referrals: SWEETIE BRODY MD [ACTIVE STAFF] - Follow up as needed Print Language: Korean
[2018-08-17 19:48] LABS: ABSOLUTE BASOPHILS # (AUTO) 0.1 10^3/uL (0.0-0.2); ABSOLUTE EOSINOPHILS # (AUTO) 0.1 10^3/uL (0.0-0.6); ABSOLUTE LYMPHOCYTES (AUTO) 1.4 10^3/uL (0.5-4.7); ABSOLUTE MONOCYTES (AUTO) 0.5 10^3/uL (0.1-1.4); ABSOLUTE NEUT (AUTO) 4.2 10^3/uL (1.7-8.2); BASOPHILS % (AUTO) 1.4 % (0-2); EOSINOPHILS % (AUTO) 1.9 % (0-6); HEMATOCRIT 35.6 % (36.0-47.0); HEMOGLOBIN 12.2 g/dL (12.0-15.5); LYMPHOCYTES % (AUTO) 22.6 % (13-45); MEAN CORPUSCULAR HEMOGLOBIN 29.7 pg (27.0-33.4); MEAN CORPUSCULAR HGB CONC 34.3 g/dL (32.0-36.0); MEAN CORPUSCULAR VOLUME 87 fl (80-97); MONOCYTES % (AUTO) 8.3 % (3-13); PLATELET COUNT 220 10^3/uL (150-450); RED BLOOD COUNT 4.12 10^6/uL (3.72-5.28); RED CELL DISTRIBUTION WIDTH 15.9 % (11.5-14.0); SEGMENTED NEUTROPHILS % (AUTO) 65.8 % (42-78); TOTAL CELLS COUNTED % (AUTO) 100 %; WHITE BLOOD COUNT 6.4 10^3/uL (4.0-10.5)
[2018-08-17 20:05] LABS: ALANINE AMINOTRANSFERASE 25 U/L (9-52); ALBUMIN 3.9 g/dL (3.5-5.0); ALKALINE PHOSPHATASE 98 U/L (38-126); ASPARTATE AMINO TRANSFERASE 26 U/L (14-36); BILIRUBIN,DIRECT 0.2 mg/dL (0.0-0.4); BILIRUBIN,TOTAL 0.4 mg/dL (0.2-1.3); BLOOD UREA NITROGEN 13 mg/dL (7-20); CALCIUM 9.5 mg/dL (8.4-10.2); CHLORIDE 110 mmol/L (98-107); GLUCOSE 96 mg/dL (75-110); LIPASE 172.4 U/L (23-300); POTASSIUM 3.9 mmol/L (3.6-5.0); SODIUM 139.5 mmol/L (137-145); TOTAL PROTEIN 6.6 g/dL (6.3-8.2)
[2018-08-17 20:06] LABS: APPEARANCE,URINE CLEAR; BILIRUBIN,URINE NEGATIVE (NEGATIVE); COLOR,URINE YELLOW; GLUCOSE, URINE NEGATIVE (NEGATIVE); KETONES,URINE NEGATIVE (NEGATIVE); LEUKOCYTE ESTERASE,URINE NEGATIVE (NEGATIVE); NITRITE,URINE NEGATIVE (NEGATIVE); PROTEIN,URINE NEGATIVE (NEGATIVE); URINE SPECIFIC GRAVITY 1.016; UROBILINOGEN,URINE NEGATIVE mg/dL (<2.0)
[2018-08-17 20:11] LABS: ANION GAP 5 (5-19); CARBON DIOXIDE 25 mmol/L (22-30)
[2018-08-17] MEDS ORDERED: METOCLOPRAMIDE HCL INJ/PF 10 MG/2 ML SDV IV ONE (20:41)
[2018-08-17] MEDS ORDERED: MORPHINE SULFATE 10 MG/ML INJ IV ONE (20:41)
--- NOTE | 2018-08-18 00:02 | RADIOLOGY REPORT (SQ) ---
EXAM DESCRIPTION: CT abdomen pelvis with contrast CLINICAL HISTORY: 52 years Female; Abdominal pain Creat 0.64 TECHNIQUE: CT of the abdomen and pelvis using intravenous 100 mL Omnipaque 350 . Oral contrast was also administered. All CT scans at this facility use dose modulation, iterative reconstruction, and/or weight based dosing when appropriate to reduce radiation dose to as low as reasonably achievable. COMPARISON: 06/15/2016 CT FINDINGS: Abdomen: Gastric staple line is again noted. No adjacent acute edema. Liver:No focal lesions. No intrahepatic ductal distention. Gallbladder:Negative Pancreas:Within normal limits Spleen: 1.6 cm cyst, unchanged. Right kidney: 3.2 cm parapelvic cyst in the upper pole is unchanged. No hydronephrosis. No suspicious lesion. Left kidney:No hydronephrosis. No focal lesion. Adrenal glands:Within normal limits Vascular structures: Minimal aortic calcification. No aneurysm or dissection. Pelvis: Small bowel: In the left upper quadrant there is a focal 2 cm long small bowel-small bowel intussusception. This occurs adjacent to a small bowel staple line that was also seen on the prior exam. No significant proximal distention. No adjacent acute edema. Oral contrast is seen distal to the intussusception. Oral contrast is seen into the distal ileum. No significant small bowel distention. Appendix:Within normal limits Colon: Several scattered ethmoid diverticula. No acute pericolonic edema or colonic distention. No free intraperitoneal fluid or air. No pelvic mass or adenopathy. IMPRESSION: 1. Focal 2 cm long small bowel-small bowel intussusception in the left upper quadrant, without obstruction. These are typically incidental and self-limited. However, this one occurs at an anastomosis and is of questionable clinical significance. 2. No acute inflammatory changes. 3. Other chronic findings as described.
[2018-08-18 01:34] VITALS: BP 147/65
== END 2018-08-18 01:35 | disposition home or self-care (01) ==
LOC: ER 19:02
DX: R10.84 Generalized abdominal pain (principal); R11.0 Nausea; I10 Essential (primary) hypertension; Z98.84 Bariatric surgery status; Z88.4 Allergy status to anesthetic agent; Z88.8 Allergy status to other drugs, medicaments and biological substances; Z91.048 Other nonmedicinal substance allergy status; Z87.442 Personal history of urinary calculi
CPT/HCPCS: 99284; 96374; 96375; 36415; 83690; 85025; 80053; 81001; 74177; J2765; J2270

== ENCOUNTER 2019-01-31 05:32 | Emergency (ER) | payer OTHER, BC ==
--- NOTE | 2019-01-31 06:32 | ER Document Report ---
ED Hand/Wrist Injury - General Chief Complaint: Wrist Injury Stated Complaint: WRIST PAIN Time Seen by Provider: 01/31/19 06:08 Primary Care Provider: YARELI GONZALEZ MD [Primary Care Provider] - Follow up as needed Notes: 53-year-old female who was getting out of bed and excellently tripped and fell on outstretched hand. She complains of severe right wrist pain 9/10 describes as aching. Worse with movement denies any numbness or tending to the right fingertips denies any head or neck injuries. Denies passing out before after the fall. Denies chest pain or shortness of breath denies abdominal pain. States she is noticed some swelling to her wrist and thinks she may has fractured it she states she has a history of psoriatic arthritis and osteopenia. TRAVEL OUTSIDE OF THE [place] IN LAST 30 DAYS: No - Related Data Allergies/Adverse Reactions: midazolam [From Versed] Allergy (Severe, Verified 08/17/18 19:02) promethazine [From Phenergan] Allergy (Severe, Verified 08/17/18 19:02) red dye Allergy (Severe, Verified 08/17/18 19:02) hydrocodone Adverse Reaction (Mild, Verified 08/17/18 19:02) Pruritis oxycodone Adverse Reaction (Mild, Verified 08/17/18 19:02) Pruritis pregabalin [From Lyrica] Adverse Reaction (Verified 08/17/18 19:02) Generalized edema Past Medical History - Social History Smoking Status: Unknown if Ever Smoked Family History: Reviewed & Not Pertinent - Past Medical History Cardiac Medical History: Reports: Hx Hypercholesterolemia, Hx Hypertension - IRBESARTIN Denies: Hx Coronary Artery Disease, Hx Heart Attack Pulmonary Medical History: Reports: Hx Pneumonia - 2017 Denies: Hx Asthma, Hx Bronchitis, Hx COPD Neurological Medical History: Reports: Hx Migraine. Denies: Hx Cerebrovascular Accident, Hx Seizures Renal/ Medical History: Reports: Hx Kidney Stones. Denies: Hx Peritoneal Dialysis Musculoskeletal Medical History: Reports Hx Arthritis - PSORIATIC ARTHRITIS Past Surgical History: Reports: Hx Breast Surgery - reduction, Hx Section, Hx Gastric Bypass Surgery, Hx Orthopedic Surgery - Status post open reduction internal fixation of a right distal femoral fritz, Other - Sphenocath - Immunizations Hx Diphtheria, Pertussis, Tetanus Vaccination: Yes Review of Systems - Review of Systems Constitutional: denies: Chills, Fever Respiratory: denies: Cough, Short of breath Gastrointestinal: denies: Abdominal pain, Nausea, Vomiting Genitourinary: denies: Dysuria, Hematuria Musculoskeletal: Joint pain, Joint swelling Skin: denies: Lesions, Other - Lacerations Neurological/Psychological: denies: Lost consciousness, Headaches -: Yes All other systems reviewed and negative Physical Exam - Vital signs Vitals: Temp Pulse Resp BP Pulse Ox 97.5 F 77 18 130/74 H 93 01/31/19 05:36 01/31/19 05:36 01/31/19 05:36 01/31/19 05:36 01/31/19 05:36 - Notes Notes: GENERAL_APPEARANCE: well_nourished, alert, cooperative, no_acute_distress, no_obvious_discomfort. VITALS: reviewed, see vital signs table. HEAD: no_swelling\tenderness on the head. EYES: PERRL, EOMI, conjunctiva_clear. NOSE: no_nasal_discharge. MOUTH: (-)decreased moisture. THROAT: no_tonsilar_inflammation, no_airway_obstruction. no_lymphadenopathy NECK: supple, no_neck_tenderness, (-)thyromegaly. BACK: no_back_tenderness. CHEST_WALL: no_chest_tenderness. LUNGS: no_wheezing, no_rales, no_rhonchi, (-)accessory muscle use, good air exchange bilateral. HEART: normal_rate, normal_rhythm, normal_S1, normal_S2, (-)S3, (-)S4, no_murmur, no_rub. ABDOMEN: normal_BS, soft, no_abd_tenderness, (-)guarding, (-)rebound, no_organomegaly, no_abd_masses. EXTREMITIES: Right wrist is swollen there is some mild deformity there is brisk cap refill to nailbeds on the right. Strong radial and ulnar pulses no open wounds noted. Other edema is noted. SKIN: warm, dry, good_color, no_rash. MENTAL_STATUS: speech_clear, oriented_X_3, normal_affect, respond s_appropriately to questions. NEURO: Neg Motor or Sensory Deficits on exam, CN 2-12 intact, DTR 2+ symmetric x 4, No cerbellar signs Course - Re-evaluation Re-evalutation: 01/31/19 06:31 53-year-old female who fell on an outstretched wrist while getting out of bed this morning. She denies any head or neck injuries. Has no neuro deficits very pleasant we will get an x-ray of her wrist. 01/31/19 08:20 X-ray shows likely nondisplaced fracture. She is point tender in that area. We will place her in a volar splint and have her see Dr. Brody orthopedics. She has seen him on multiple occasions before. - Vital Signs Vital signs: Temp Pulse Resp BP Pulse Ox 97.5 F 77 18 130/74 H 93 01/31/19 05:36 01/31/19 05:36 01/31/19 05:36 01/31/19 05:36 01/31/19 05:36 - Diagnostic Test Radiology reviewed: Reports reviewed Radiology results interpreted by me: 01/31/19 08:20 Wrist X-Ray 01/31/19 06:29 IMPRESSION: Questionable cortical irregularity of the distal radial or ulnar metaphysis on the lateral projection suspicious for a nondisplaced fracture. However, no overlying soft tissue swelling is evident. Correlate clinically for focal pain in this region. If indicated, repeat study in 7-10 days. Discharge - Discharge Clinical Impression: Distal radius fracture, right Qualifiers: Encounter type: initial encounter Fracture type: closed Fracture morphology: Colles' Qualified Code(s): S52.531A - Colles' fracture of right radius, initial encounter for closed fracture Condition: Good Disposition: HOME, SELF-CARE Instructions: Fractured Navicular of the Wrist ([facility]), Fractured Radius ([facility]) Additional Instructions: Please take your pain medicine as prescribed by your pain management doctor. Follow-up with Dr. Brody for your wrist Referrals: YARELI GONZALEZ MD [Primary Care Provider] - Follow up as needed SWEETIE BRODY MD [ACTIVE STAFF] - Follow up as needed
--- NOTE | 2019-01-31 07:44 | RADIOLOGY REPORT (SQ) ---
EXAM: X-ray wrist three or more views right CLINICAL DATA: Generalized right wrist pain with movement status post fall TECHNICAL DATA: Three x-ray views of the right wrist were performed on 01/31/2019 at 7:04 AM. COMPARISONS: None FINDINGS: On the lateral projection there is questionable cortical irregularity of the distal radial or ulnar metaphysis suspicious for a nondisplaced fracture. There is, however, no significant overlying soft tissue swelling. The osseous structures are otherwise intact. No significant degenerative or arthritic changes are identified. No lytic or sclerotic bone lesions are seen. Bone mineralization is slightly diminished. No focal soft tissue abnormalities are identified. IMPRESSION: Questionable cortical irregularity of the distal radial or ulnar metaphysis on the lateral projection suspicious for a nondisplaced fracture. However, no overlying soft tissue swelling is evident. Correlate clinically for focal pain in this region. If indicated, repeat study in 7-10 days.
[2019-01-31 08:34] VITALS: BP 133/74
== END 2019-01-31 08:36 | disposition home or self-care (01) ==
LOC: ER 05:32
DX: S52.531A Colles' fracture of right radius, initial encounter for closed fracture (principal); M25.531 Pain in right wrist; W01.0XXA Fall on same level from slipping, tripping and stumbling without subsequent striking against object, initial encounter; I10 Essential (primary) hypertension; Y93.89 Activity, other specified; Z88.8 Allergy status to other drugs, medicaments and biological substances; Z91.048 Other nonmedicinal substance allergy status
CPT/HCPCS: 99283

== ENCOUNTER 2019-02-26 18:04 | Emergency (ER) | payer OTHER, BC ==
--- NOTE | 2019-02-26 18:19 | ER Document Report ---
ED General - General Stated Complaint: CHEST PAIN,DIZZINESS Time Seen by Provider: 02/26/19 18:18 Primary Care Provider: YARELI GONZALEZ MD [Primary Care Provider] - Follow up as needed TRAVEL OUTSIDE OF THE [place] IN LAST 30 DAYS: No - HPI Patient complains to provider of: chest pain Notes: 53 y/o presenting to ED for evaluation of left sided chest pain that goes from mid chest to left side and to back she has a h/o psoriatic arthritis and is on methotrexate and humira for this she denies cough, vomiting, diarrhea, leg swelling she has no h/o dvt or pe she has not had a cath or stress in >10 years when she had a negative nuclear stress test she denies exertional intolerance, orthopnea or PND she describes the pain as a sharp/stabbing pain - Related Data Allergies/Adverse Reactions: midazolam [From Versed] Allergy (Severe, Verified 08/17/18 19:02) promethazine [From Phenergan] Allergy (Severe, Verified 08/17/18 19:02) red dye Allergy (Severe, Verified 08/17/18 19:02) hydrocodone Adverse Reaction (Mild, Verified 08/17/18 19:02) Pruritis oxycodone Adverse Reaction (Mild, Verified 08/17/18 19:02) Pruritis pregabalin [From Lyrica] Adverse Reaction (Verified 08/17/18 19:02) Generalized edema Past Medical History - Social History Smoking Status: Unknown if Ever Smoked Family History: Reviewed & Not Pertinent - Past Medical History Cardiac Medical History: Reports: Hx Hypercholesterolemia, Hx Hypertension - IRBESARTIN Denies: Hx Coronary Artery Disease, Hx Heart Attack Pulmonary Medical History: Reports: Hx Pneumonia - 2017 Denies: Hx Asthma, Hx Bronchitis, Hx COPD Neurological Medical History: Reports: Hx Migraine. Denies: Hx Cerebrovascular Accident, Hx Seizures Renal/ Medical History: Reports: Hx Kidney Stones. Denies: Hx Peritoneal Dialysis Musculoskeletal Medical History: Reports Hx Arthritis - PSORIATIC ARTHRITIS Past Surgical History: Reports: Hx Breast Surgery - reduction, Hx Section, Hx Gastric Bypass Surgery, Hx Orthopedic Surgery - Status post open reduction internal fixation of a right distal femoral fritz, Other - Sphenocath - Immunizations Hx Diphtheria, Pertussis, Tetanus Vaccination: Yes Review of Systems - Review of Systems Constitutional: No symptoms reported EENT: No symptoms reported Cardiovascular: Chest pain, Palpitations. denies: Dizziness, Lightheaded Respiratory: No symptoms reported Gastrointestinal: No symptoms reported Genitourinary: No symptoms reported Female Genitourinary: No symptoms reported Musculoskeletal: No symptoms reported Skin: No symptoms reported Hematologic/Lymphatic: No symptoms reported Neurological/Psychological: No symptoms reported Physical Exam - Vital signs Vitals: Pulse Ox 96 02/26/19 18:17 Interpretation: Normal - General General appearance: Appears well, Alert - HEENT Head: Normocephalic, Atraumatic Eyes: Normal Pupils: PERRL - Respiratory Respiratory status: No respiratory distress Chest status: Nontender Breath sounds: Normal Chest palpation: Normal - Cardiovascular Rhythm: Regular Heart sounds: Normal auscultation Murmur: No Pulses: Normal: Radial Notes: reproducible chest wall pain on exam of left anterior chest - no skin changes - Abdominal Inspection: Normal Distension: No distension Bowel sounds: Normal Tenderness: Nontender Organomegaly: No organomegaly - Back Back: Normal, Nontender - Extremities General upper extremity: Normal inspection, Nontender, Normal color, Normal ROM, Normal temperature General lower extremity: Normal inspection, Nontender, Normal color, Normal ROM, Normal temperature, Normal weight bearing. No: Cynthia's sign - Neurological Neuro grossly intact: Yes Cognition: Normal Orientation: AAOx4 Gillian Coma Scale Eye Opening: Spontaneous Gillian Coma Scale Verbal: Oriented [place] Coma Scale Motor: Obeys Commands Gillian Coma Scale Total: 15 Speech: Normal Motor strength normal: LUE, RUE, LLE, RLE Sensory: Normal - Psychological Associated symptoms: Normal affect, Normal mood - Skin Skin Temperature: Warm Skin Moisture: Dry Skin Color: Normal Course - Re-evaluation Re-evalutation: 02/26/19 18:29 patient w/ reproducible chest pain on exam EKG is acutely nonischemic given age, will evaluate initially with troponin, ekg, cxr, and d dimer in addition to basic labs asa and ketorolac given upon arrival 02/26/19 21:54 patient w/ 2 negative troponins and nonischemic ekg chest pain is controlled dc w/ outpt cardiology follow up for atypical presentation HEART SCORE - 0, 1, 1, 0, 0 = 2 - Vital Signs Vital signs: Temp Pulse Resp BP Pulse Ox 21 H 118/89 H 100 02/26/19 21:01 02/26/19 21:01 02/26/19 21:01 - Laboratory Result Diagrams: 02/26/19 18:27 02/26/19 18:27 Laboratory results interpreted by me: 02/26/19 02/26/19 18:27 18:27 RDW 14.5 H Glucose 156 H - Diagnostic Test Radiology reviewed: Image reviewed, Reports reviewed - EKG Interpretation by Me Additional EKG results interpreted by me: 02/26/19 18:30 rate 107, sinus tachycardia, no ST segment or T wave changes Discharge - Discharge Clinical Impression: Atypical chest pain, Neck pain Condition: Stable Disposition: HOME, SELF-CARE Instructions: Chest Pain of Unclear Cause ([facility]), Chest Wall Pain ([facility]) Additional Instructions: please follow up with your primary edge stainer machine as an outpatient return to the ED with worsening take all of your home medications as directed Referrals: YARELI GONZALEZ MD [Primary Care Provider] - Follow up as needed
[2019-02-26] MEDS ORDERED: ASPIRIN 81 MG TABLET, CHEWABLE PO ONE (18:26)
[2019-02-26] MEDS ORDERED: KETOROLAC TROMETHAMINE INJ/PF 30 MG/1 ML SDV IV ONE (18:26)
[2019-02-26] MEDS ORDERED: NORMAL SALINE 1000 ML 1,000 ML IV ONE (18:32)
[2019-02-26 18:49] LABS: ABSOLUTE BASOPHILS # (AUTO) 0.1 10^3/uL (0.0-0.2); ABSOLUTE LYMPHOCYTES (AUTO) 1.7 10^3/uL (0.5-4.7); ABSOLUTE MONOCYTES (AUTO) 0.4 10^3/uL (0.1-1.4); ABSOLUTE NEUT (AUTO) 4.1 10^3/uL (1.7-8.2); BASOPHILS % (AUTO) 1.2 % (0-2); EOSINOPHILS % (AUTO) 0.8 % (0-6); HEMATOCRIT 38.7 % (36.0-47.0); HEMOGLOBIN 12.8 g/dL (12.0-15.5); LYMPHOCYTES % (AUTO) 26.9 % (13-45); MEAN CORPUSCULAR HEMOGLOBIN 28.9 pg (27.0-33.4); MEAN CORPUSCULAR HGB CONC 33.1 g/dL (32.0-36.0); MEAN CORPUSCULAR VOLUME 88 fl (80-97); MONOCYTES % (AUTO) 6.7 % (3-13); PLATELET COUNT 226 10^3/uL (150-450); RED BLOOD COUNT 4.42 10^6/uL (3.72-5.28); RED CELL DISTRIBUTION WIDTH 14.5 % (11.5-14.0); SEGMENTED NEUTROPHILS % (AUTO) 64.4 % (42-78); TOTAL CELLS COUNTED % (AUTO) 100 %; WHITE BLOOD COUNT 6.3 10^3/uL (4.0-10.5)
[2019-02-26 19:04] LABS: ALBUMIN 4.4 g/dL (3.5-5.0); ALKALINE PHOSPHATASE 90 U/L (38-126); ANION GAP 10 (5-19); ASPARTATE AMINO TRANSFERASE 28 U/L (14-36); BILIRUBIN,DIRECT 0.2 mg/dL (0.0-0.4); BILIRUBIN,TOTAL 0.4 mg/dL (0.2-1.3); BLOOD UREA NITROGEN 12 mg/dL (7-20); CALCIUM 9.5 mg/dL (8.4-10.2); CARBON DIOXIDE 27 mmol/L (22-30); CHLORIDE 102 mmol/L (98-107); CREATINE KINASE 38 U/L (30-135); GLUCOSE 156 mg/dL (75-110); POTASSIUM 4.2 mmol/L (3.6-5.0); TOTAL PROTEIN 7.2 g/dL (6.3-8.2)
[2019-02-26] MEDS ORDERED: NITROGLYCERIN 0.4 MG/TAB 25 TAB/BOTTLE SL PRN (19:06)
[2019-02-26 19:15] LABS: CREATINE KINASE MB 0.46 ng/mL (<4.55)
[2019-02-26 19:18] LABS: TROPONIN I < 0.012 ng/mL
--- NOTE | 2019-02-26 19:23 | RADIOLOGY REPORT (SQ) ---
EXAM DESCRIPTION: CHEST SINGLE VIEW COMPLETED DATE/TIME: 02/26/2019 7:08 pm REASON FOR STUDY: chest pain COMPARISON: Chest radiograph 06/20/2018. EXAM PARAMETERS: NUMBER OF VIEWS: One view. TECHNIQUE: Single frontal radiographic view of the chest acquired. RADIATION DOSE: NA LIMITATIONS: None. FINDINGS: LUNGS AND PLEURA: No opacities, masses or pneumothorax. No pleural effusion. MEDIASTINUM AND HILAR STRUCTURES: Unchanged mild cardiomegaly. HEART AND VASCULAR STRUCTURES: Heart normal in size. Normal vasculature. BONES: No acute findings. HARDWARE: None in the chest. OTHER: No other significant finding. IMPRESSION: No acute pulmonary findings. Unchanged mild cardiomegaly. TECHNICAL DOCUMENTATION: JOB ID: [id number]- All Rights Reserved Reading location - IP/workstation name: [email or web address]
[2019-02-26] MEDS ORDERED: METHYLPREDNISOLONE ACETATE INJ 80 MG/1 ML VIAL IM ONE (20:49)
[2019-02-26] MEDS ORDERED: GABAPENTIN 300 MG CAPSULE PO ONE (20:49)
[2019-02-26] MEDS ORDERED: MORPHINE SULFATE 10 MG/ML INJ IV ONE (20:49)
--- NOTE | 2019-02-26 21:02 | EKG REPORT ---
SEVERITY:- BORDERLINE ECG - SINUS TACHYCARDIA PROBABLE LEFT ATRIAL ABNORMALITY : Confirmed by: Jose Guadalupe Hunter MD 26-Feb-2019 21:01:27
[2019-02-26 22:03] VITALS: BP 148/84
== END 2019-02-26 22:20 | disposition home or self-care (01) ==
LOC: ER 18:04
DX: R07.89 Other chest pain (principal); M54.2 Cervicalgia; R00.2 Palpitations; R00.0 Tachycardia, unspecified; I10 Essential (primary) hypertension; L40.50 Arthropathic psoriasis, unspecified; Z88.4 Allergy status to anesthetic agent; Z79.899 Other long term (current) drug therapy; Z91.048 Other nonmedicinal substance allergy status; Z87.01 Personal history of pneumonia (recurrent)
CPT/HCPCS: 93005; 36415; 82553; 82550; 83690; 85025; 80053; 84484; 85379; 71045; 93010; J1040; J1885; J2270; J7030; 96361; 96374; 96375; 99285

== ENCOUNTER → 2019-03-08 | Outpatient (CLI) | payer OTHER, BC ==
--- NOTE | 2019-03-08 18:26 | RADIOLOGY REPORT (SQ) ---
EXAM DESCRIPTION: MRI HEAD WITHOUT COMPLETED DATE/TIME: 03/08/2019 6:02 pm REASON FOR STUDY: (M54.2)CERVICALGIA M54.2 CERVICALGIA G44.209 TENSION-TYPE HEADACHE, UNSPECIFIED, NOT INTRACTABLE M54.17 RADICULOPATHY, LUMBOSACRAL REGION COMPARISON: None. TECHNIQUE: Multiplanar imaging includes non-contrasted T1, T2, FLAIR, and Diffusion with ADC map seq uences. Images stored on PACS. LIMITATIONS: None. FINDINGS: ANATOMY: No anomalies. Normal vascular flow voids. Pituitary fossa normal. CSF SPACES: Normal in size and contour. No hemorrhage. CEREBRUM: A few high-signal intensity lesions scattered throughout the white matter on FLAIR imaging with distribution suggesting chronic micro-vascular ischemic change. Sulci and gyri normal in size a nd contour. No evidence of hemorrhage, mass or extraaxial fluid collection. POSTERIOR FOSSA: No signal alteration. No hemorrhage. No edema, masses or mass effect. Internal teri tory canals, cerebello-pontine angles, mastoids normal. DIFFUSION: Negative for acute or sub-acute infarction. ORBITS: No masses. Globes normal. PARANASAL SINUSES: No fluid levels. Mucosa normal. OTHER: No other significant finding. IMPRESSION: MINIMAL MICROVASCULAR ISCHEMIC CHANGE. EVIDENCE OF ACUTE STROKE: NO. TECHNICAL DOCUMENTATION: JOB ID: [id number] [id number] [employer]- All Rights Reserved Reading location - IP/workstation name: [email or web address]
--- NOTE | 2019-03-08 18:48 | RADIOLOGY REPORT (SQ) ---
EXAM DESCRIPTION: MRI LUMBAR SPINE WITHOUT COMPLETED DATE/TIME: 03/08/2019 6:02 pm REASON FOR STUDY: M54.17 RADICULOPATHY, LUMBOSACRAL REGION M54.2 CERVICALGIA G44.209 TENSION-TYPE HEADACHE, UNSPECIFIED, NOT INTRACTABLE M54.17 RADICULOPATHY, LUMBOSACRAL REGION COMPARISON: None. TECHNIQUE: Sagittal and Axial imaging includes T1, T2, STIR and gradient echo sequences. Coronal T2/ HASTE imaging. LIMITATIONS: None. FINDINGS: VISUALIZED UPPER ABDOMEN: Limited evaluation. No acute or suspicious findings suggested. SEGMENTATION: No transitional anatomy. The lowest well-developed disc space is labeled L5-S1. ALIGNMENT: Anatomic. VERTEBRAE: Intact. BONE MARROW: Normal. No marrow replacement or reactive changes. DISC SIGNAL: There is mild disc narrowing from L3-S1 with decreased signal intensity. POSTERIOR ELEMENTS: Generally intact. No pars defect evident. HARDWARE: None in the spine. CORD AND CONUS: Normal in size and signal intensity. Conus at the L1-2 level. SOFT TISSUES: No aortic aneurysm seen. No bulky retroperitoneal adenopathy or mass. No paraspinal mas s or fluid. L1-L2: No significant spinal stenosis or exit foraminal stenosis. L2-L3: No significant spinal stenosis or exit foraminal stenosis. L3-L4: No significant spinal stenosis or exit foraminal stenosis. L4-L5: Mild concentric disc bulging with no central canal or foraminal stenosis. L5-S1: No significant spinal stenosis or exit foraminal stenosis. LOWER THORACIC: Incompletely imaged. No stenosis seen. SACRUM: Visualized upper sacrum intact. OTHER: No other significant findings. IMPRESSION: Mild concentric disc bulging at L4-5 with no central canal or foraminal stenosis. No ot her significant findings. TECHNICAL DOCUMENTATION: JOB ID: [id number] [employer]- All Rights Reserved Reading location - IP/workstation name: [email or web address]
--- NOTE | 2019-03-08 18:55 | RADIOLOGY REPORT (SQ) ---
EXAM DESCRIPTION: MRI CERVICAL SPINE WITHOUT COMPLETED DATE/TIME: 03/08/2019 6:02 pm REASON FOR STUDY: (M54.2)CERVICALGIA;(G44.209)TENSION-TYPE HEADACHE, UNSPECIFIED, NOT INTRACT M54.2 CERVICALGIA G44.209 TENSION-TYPE HEADACHE, UNSPECIFIED, NOT INTRACTABLE M54.17 RADICULOPATHY, LUMB OSACRAL REGION COMPARISON: None. TECHNIQUE: Sagittal and Axial imaging includes T1, T2, STIR and gradient echo sequences. LIMITATIONS: None. FINDINGS: ALIGNMENT: Normal. VERTEBRAE: Intact. BONE MARROW: Normal. No marrow replacement or reactive changes. DISCS: Normal. No significant abnormal signal or loss of height. HARDWARE: None in the spine. CORD AND BASE OF BRAIN: Normal in size and signal intensity. No syrinx. SOFT TISSUES: No soft tissue masses. C1-C2: No significant spinal stenosis. C2-C3: No significant spinal stenosis or exit foraminal stenosis. C3-C4: No significant spinal stenosis or exit foraminal stenosis. C4-C5: Very shallow midline disc/ osteophyte complex. No central canal or foraminal stenosis. C5-C6: No significant spinal stenosis or exit foraminal stenosis. C6-C7: No significant spinal stenosis or exit foraminal stenosis. C7-T1: No significant spinal stenosis or exit foraminal stenosis. UPPER THORACIC: Incompletely imaged. No significant spinal stenosis or exit foraminal stenosis. OTHER: Slightly low lying cerebellar tonsils. 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 No significant findings in the cervical spine. There i s very shallow midline disc/ osteophyte complex at C4-5 with no central canal or foraminal stenosis. TECHNICAL DOCUMENTATION: JOB ID: [id number]- All Rights Reserved Reading location - IP/workstation name: [email or web address]
== END ==
LOC: RAD 16:03
PROVIDERS: ATTEND Psychiatry & Neurology Neurology
DX: M54.2 Cervicalgia (principal); M51.16 Intervertebral disc disorders with radiculopathy, lumbar region; G43.909 Migraine, unspecified, not intractable, without status migrainosus
CPT/HCPCS: 70551; 72141; 72148

== ENCOUNTER 2019-04-08 13:09 | Observation (INO) | payer OTHER, BC ==
--- NOTE | 2019-04-08 13:47 | ER Document Report ---
ED Medical Screen (RME) - General Chief Complaint: Flank Pain Stated Complaint: FLANK PAIN Time Seen by Provider: 04/08/19 13:42 Primary Care Provider: ANTHONY PACHECO MD [Primary Care Provider] - Follow up as needed TRAVEL OUTSIDE OF THE [place] IN LAST 30 DAYS: No - HPI Notes: 04/08/19 13:46 Patient is a 53-year-old female who presents complaining of right upper quadrant pain, lower abdominal pain, right flank pain over the past 2 to 3 days. She has been nauseous but not vomiting. Patient states that her symptoms get worse after she eats. She is having some diarrhea as well. Patient states that she did have an ultrasound of her gallbladder a week ago approximately and showed distention with sludge. She is otherwise urinating normally. No fever. I have treated and performed a rapid initial assessment of this patient. A comprehensive ED assessment and evaluation of the patient, analysis of test results and completion of medical decision making process will be conducted by additional ED providers. PHYSICAL EXAMINATION: GENERAL: Well-appearing, well-nourished and in no acute distress. A&Ox4. Answers questions appropriately. Abdomen: Limited exam of triage, but patient does have right upper quadrant tenderness, right CVA tenderness, and lower tenderness. - Related Data Allergies/Adverse Reactions: midazolam [From Versed] Allergy (Severe, Verified 04/08/19 13:41) promethazine [From Phenergan] Allergy (Severe, Verified 04/08/19 13:41) red dye Allergy (Severe, Verified 04/08/19 13:41) hydrocodone Adverse Reaction (Mild, Verified 04/08/19 13:41) Pruritis oxycodone Adverse Reaction (Mild, Verified 04/08/19 13:41) Pruritis pregabalin [From Lyrica] Adverse Reaction (Verified 04/08/19 13:41) Generalized edema Past Medical History - Social History Chew tobacco use (# tins/day): No Frequency of alcohol use: None Drug Abuse: None - Past Medical History Cardiac Medical History: Reports: Hx Hypercholesterolemia, Hx Hypertension - IRBESARTIN Denies: Hx Coronary Artery Disease, Hx Heart Attack Pulmonary Medical History: Reports: Hx Pneumonia - 2017 Denies: Hx Asthma, Hx Bronchitis, Hx COPD Neurological Medical History: Reports: Hx Migraine. Denies: Hx Cerebrovascular Accident, Hx Seizures Renal/ Medical History: Reports: Hx Kidney Stones. Denies: Hx Peritoneal Dialysis Musculoskeltal Medical History: Reports Hx Arthritis - PSORIATIC ARTHRITIS Past Surgical History: Reports: Hx Breast Surgery - reduction, Hx Section, Hx Gastric Bypass Surgery, Hx Orthopedic Surgery - Status post open reduction internal fixation of a right distal femoral fritz, Other - Sphenocath - Immunizations Hx Diphtheria, Pertussis, Tetanus Vaccination: Yes Physical Exam - Vital signs Vitals: Temp Pulse Resp BP 97.8 F 89 20 126/66 H 04/08/19 13:29 04/08/19 13:29 04/08/19 13:29 04/08/19 13:29 Course - Vital Signs Vital signs: Temp Pulse Resp BP Pulse Ox 97.8 F 89 20 126/66 H 04/08/19 13:29 04/08/19 13:29 04/08/19 13:29 04/08/19 13:29 Doctor's Discharge - Discharge Referrals: ANTHONY PACHECO MD [Primary Care Provider] - Follow up as needed
[2019-04-08] MEDS ORDERED: MORPHINE SULFATE 10 MG/ML INJ IV ONE (13:48)
[2019-04-08] MEDS ORDERED: ONDANSETRON HCL INJ/PF 4 MG/2 ML SDV IV ONE (13:48)
[2019-04-08 14:42] LABS: APPEARANCE,URINE CLEAR; BILIRUBIN,URINE NEGATIVE (NEGATIVE); COLOR,URINE YELLOW; GLUCOSE, URINE NEGATIVE (NEGATIVE); KETONES,URINE NEGATIVE (NEGATIVE); PROTEIN,URINE NEGATIVE (NEGATIVE); URINE SPECIFIC GRAVITY 1.013; UROBILINOGEN,URINE NEGATIVE mg/dL (<2.0)
--- NOTE | 2019-04-08 14:57 | RADIOLOGY REPORT (SQ) ---
EXAM DESCRIPTION: U/S ABDOMEN LIMITED W/O DOP COMPLETED DATE/TIME: 04/08/2019 2:45 pm REASON FOR STUDY: RUQ and Rt flank eval for pain at both COMPARISON: None. TECHNIQUE: Dynamic and static grayscale images acquired of the abdomen and recorded on PACS. Erino jose c selected color Doppler and spectral images recorded. LIMITATIONS: None. FINDINGS: PANCREAS: No masses. Visualized pancreatic duct normal caliber. LIVER: No masses. Increased echogenicity. LIVER VASCULATURE: Normal directional flow of the main portal vein and hepatic veins. GALLBLADDER: Mildly distended, containing sludge. Normal wall thickness. No pericholecystic fluid. ULTRASOUND-DETECTED STOKES'S SIGN: Positive. INTRAHEPATIC DUCTS AND COMMON DUCT: CBD and intrahepatic ducts normal caliber. No filling defects. INFERIOR VENA CAVA: Normal flow. AORTA: No aneurysm. RIGHT KIDNEY: Normal size. Normal echogenicity. No solid or suspicious masses. No hydronephrosis. No calcifications. PERITONEAL AND RIGHT PLEURAL SPACE: No ascites or effusions. OTHER: No other significant findings. IMPRESSION: 1. Mildly distended gallbladder containing sludge. No gallbladder wall thickening. No pericholecystic fluid. No biliary ductal dilation. Positive sonographic Stokes sign. Findings are equivocal for acute cholecystitis. HIDA may be used to evaluate patency of the cystic duct if desire d. 2. Hepatic steatosis. TECHNICAL DOCUMENTATION: JOB ID: [id number] [email or web address]- All Rights Reserved Reading location - IP/workstation name: [email or web address]
[2019-04-08 15:09] LABS: ABSOLUTE BASOPHILS # (AUTO) 0.1 10^3/uL (0.0-0.2); ABSOLUTE LYMPHOCYTES (AUTO) 1.5 10^3/uL (0.5-4.7); ABSOLUTE MONOCYTES (AUTO) 0.5 10^3/uL (0.1-1.4); ABSOLUTE NEUT (AUTO) 3.2 10^3/uL (1.7-8.2); BASOPHILS % (AUTO) 1.1 % (0-2); EOSINOPHILS % (AUTO) 0.6 % (0-6); HEMATOCRIT 36.9 % (36.0-47.0); HEMOGLOBIN 12.6 g/dL (12.0-15.5); LYMPHOCYTES % (AUTO) 27.6 % (13-45); MEAN CORPUSCULAR HEMOGLOBIN 30.5 pg (27.0-33.4); MEAN CORPUSCULAR HGB CONC 34.1 g/dL (32.0-36.0); MEAN CORPUSCULAR VOLUME 90 fl (80-97); MONOCYTES % (AUTO) 10.2 % (3-13); PLATELET COUNT 185 10^3/uL (150-450); RED BLOOD COUNT 4.13 10^6/uL (3.72-5.28); RED CELL DISTRIBUTION WIDTH 14.7 % (11.5-14.0); SEGMENTED NEUTROPHILS % (AUTO) 60.5 % (42-78); TOTAL CELLS COUNTED % (AUTO) 100 %; WHITE BLOOD COUNT 5.2 10^3/uL (4.0-10.5)
[2019-04-08 15:27] LABS: ALBUMIN 4.3 g/dL (3.5-5.0); ALKALINE PHOSPHATASE 86 U/L (38-126); ANION GAP 8 (5-19); ASPARTATE AMINO TRANSFERASE 20 U/L (14-36); BILIRUBIN,DIRECT 0.1 mg/dL (0.0-0.4); BILIRUBIN,TOTAL 0.6 mg/dL (0.2-1.3); BLOOD UREA NITROGEN 11 mg/dL (7-20); CALCIUM 9.1 mg/dL (8.4-10.2); CARBON DIOXIDE 28 mmol/L (22-30); CHLORIDE 106 mmol/L (98-107); GLUCOSE 77 mg/dL (75-110); POTASSIUM 3.9 mmol/L (3.6-5.0)
--- NOTE | 2019-04-08 16:34 | ER Document Report ---
ED General - General Chief Complaint: Abdominal Pain Stated Complaint: FLANK PAIN Time Seen by Provider: 04/08/19 13:42 Mode of Arrival: Ambulatory Information source: Patient Notes: This 53-year-old female presents emergency department with complaints of right upper quad lower abdominal pain for for a while. Reports increased pain in the last 2 to 3 days. Reports nausea all the time and she has diarrhea after every time she eats. She reports she had a gallbladder ultrasound March 30 by [facility] which showed some sludge. She reports today after the parade they went out to get something to eat and she had worse pain with nausea no vomiting positive diarrhea. She denies fever. Patient reports that last week she had a stress test. She reports the stress test was due to tachycardia. Since that time she has had increased abdominal pain. TRAVEL OUTSIDE OF THE [place] IN LAST 30 DAYS: No - HPI Onset: Other Onset/Duration: Persistent Quality of pain: Achy Associated symptoms: Diarrhea, Nausea Exacerbated by: Food Relieved by: Denies Similar symptoms previously: Yes Recently seen / treated by doctor: Yes - Related Data Allergies/Adverse Reactions: midazolam [From Versed] Allergy (Severe, Verified 04/08/19 13:41) promethazine [From Phenergan] Allergy (Severe, Verified 04/08/19 13:41) red dye Allergy (Severe, Verified 04/08/19 13:41) hydrocodone Adverse Reaction (Mild, Verified 04/08/19 13:41) Pruritis oxycodone Adverse Reaction (Mild, Verified 04/08/19 13:41) Pruritis pregabalin [From Lyrica] Adverse Reaction (Verified 04/08/19 13:41) Generalized edema Past Medical History - General Information source: Patient - Social History Smoking Status: Never Smoker Chew tobacco use (# tins/day): No Frequency of alcohol use: None Drug Abuse: None Lives with: Family Family History: Reviewed & Not Pertinent Patient has suicidal ideation: No Patient has homicidal ideation: No - Past Medical History Cardiac Medical History: Reports: Hx Hypercholesterolemia, Hx Hypertension - IRBESARTIN Denies: Hx Coronary Artery Disease, Hx Heart Attack Pulmonary Medical History: Reports: Hx Pneumonia - 2017 Denies: Hx Asthma, Hx Bronchitis, Hx COPD Neurological Medical History: Reports: Hx Migraine. Denies: Hx Cerebrovascular Accident, Hx Seizures Renal/ Medical History: Reports: Hx Kidney Stones. Denies: Hx Peritoneal Dialysis Musculoskeletal Medical History: Reports Hx Arthritis - PSORIATIC ARTHRITIS Past Surgical History: Reports: Hx Breast Surgery - reduction, Hx Section, Hx Gastric Bypass Surgery, Hx Orthopedic Surgery - Status post open reduction internal fixation of a right distal femoral fritz, Other - Sphenocath - Immunizations Hx Diphtheria, Pertussis, Tetanus Vaccination: Yes Review of Systems - Review of Systems Notes: Review HPI for review of systems., All other systems negative Physical Exam - Vital signs Vitals: Temp Pulse Resp BP 97.8 F 89 20 126/66 H 04/08/19 13:29 04/08/19 13:29 04/08/19 13:29 04/08/19 13:29 - Notes Notes: PHYSICAL EXAMINATION: GENERAL: Well-appearing and in no acute distress , nontoxic looking HEAD: Atraumatic, normocephalic. EYES: extraocular movements intact, sclera anicteric, conjunctiva are normal. ENT: nares patent, oropharynx clear without exudates. Moist mucous membranes. NECK: Normal range of motion, supple without lymphadenopathy LUNGS: CTAB and equal. No wheezes rales or rhonchi. HEART: Regular rate and rhythm without murmurs ABDOMEN: Soft, right upper quad , epigastric area low abdominal area tender to palpate EXTREMITIES: Normal range of motion, NEUROLOGICAL: Cranial nerves grossly intact. Normal sensory/motor exams. PSYCH: Normal mood, normal affect. SKIN: Warm, Dry, normal turgor, no rashes or lesions noted Course - Re-evaluation Re-evalutation: 04/08/19 16:41 53-year-old female with history of gallbladder sludge presents today with complaints of right upper quad abdominal pain. Reports she is been having this abdominal pain for a while now worse in the last 2 to 3 days. Reports increased pain since she had a cardiac stress test done last . Denies fever denies vomiting reports extreme nausea and diarrhea after every time she eats. Labs unremarkable lipase has decreased from previous visits. Ultrasound shows d istended gallbladder containing sludge. Dr. Herrmann surgeon contacted for evaluation. Abdomen Ultrasound 04/08/19 13:48 IMPRESSION: 1. Mildly distended gallbladder containing sludge. No gallbladder wall thickening. No pericholecystic fluid. No biliary ductal dilation. Positive sonographic Stokes sign. Findings are equivocal for acute cholecystitis. HIDA may be used to evaluate patency of the cystic duct if desired. 2. Hepatic steatosis. 04/08/19 14:59 04/08/19 14:59 MCV 90 fl (80-97) 04/08/19 14:59 MCH 30.5 pg (27.0-33.4) 04/08/19 14:59 MCHC 34.1 g/dL (32.0-36.0) 04/08/19 14:59 RDW 14.7 % (11.5-14.0) H 04/08/19 14:59 Seg Neutrophils % 60.5 % (42-78) 04/08/19 14:59 Chloride 106 mmol/L (98-107) 04/08/19 14:59 Carbon Dioxide 28 mmol/L (22-30) 04/08/19 14:59 Anion Gap 8 (5-19) 04/08/19 14:59 Est GFR ( Amer) > 60 (>60) 04/08/19 14:59 Glucose 77 mg/dL (75-110) 04/08/19 14:59 Calcium 9.1 mg/dL (8.4-10.2) 04/08/19 14:59 Total Bilirubin 0.6 mg/dL (0.2-1.3) 04/08/19 14:59 AST 20 U/L (14-36) 04/08/19 14:59 Alkaline Phosphatase 86 U/L (38-126) 04/08/19 14:59 Total Protein 7.0 g/dL (6.3-8.2) 04/08/19 14:59 Albumin 4.3 g/dL (3.5-5.0) 04/08/19 14:59 Lipase 148.6 U/L (23-300) 04/08/19 14:59 Urine Color YELLOW 04/08/19 14:10 Urine Appearance CLEAR 04/08/19 14:10 Urine pH 5.0 (5.0-9.0) 04/08/19 14:10 Ur Specific [place] 1.013 04/08/19 14:10 Urine Protein NEGATIVE mg/dL (NEGATIVE) 04/08/19 14:10 Urine Glucose (UA) NEGATIVE mg/dL (NEGATIVE) 04/08/19 14:10 Urine Ketones NEGATIVE mg/dL (NEGATIVE) 04/08/19 14:10 Urine Blood NEGATIVE (NEGATIVE) 04/08/19 14:10 Urine RBC (Auto) 2 /HPF 04/08/19 14:10 04/08/19 17:25 Dr. Herrmann in the emergency department assessed patient. Reports to contact the hospitalist for admission due to psoriasis arthritis and hypertension, I contacted Dr. Hinojosa and then Dr. Glover for admission. Dr. Glover agreed with admission to medical floor. He then called me back and instructed he had discussed patient Dr. Herrmann and Dr. Chawla will be admitting the patient with hospitalist as the consulting provider. Patient aware of plan of care and agrees. - Vital Signs Vital signs: Temp Pulse Resp BP Pulse Ox 97.5 F 63 16 135/86 H 96 04/08/19 19:11 04/08/19 19:11 04/08/19 19:11 04/08/19 19:11 04/08/19 19:11 - Laboratory Result Diagrams: 04/08/19 14:59 04/08/19 14:59 Laboratory results interpreted by me: 04/08/19 14:59 RDW 14.7 H - Diagnostic Test Radiology reviewed: Image reviewed, Reports reviewed - Consults dr herrmann Time consulted: 16:45 Reason for consultation: 04/08/19 16:45 RUQ abdominal pain, sludge Consulted provider: will come to ER Discharge - Discharge Clinical Impression: Gallbladder sludge Abdominal pain Qualifiers: Abdominal location: right upper quadrant Qualified Code(s): R10.11 - Right upper quadrant pain Condition: Stable Disposition: ADMITTED INPATIENT Admitting Provider: Surgicalist Unit Admitted: Medical Floor
[2019-04-08] MEDS ORDERED: NORMAL SALINE 1000 ML 1,000 ML IV ONE (17:28)
[2019-04-08] MEDS ORDERED: DEXTROSE 5%-LACTATED RINGERS 1,000 ML IV PRN (18:03)
--- NOTE | 2019-04-08 18:03 | PDOC H&P ---
History of Present Illness Admission Date/PCP: YARELI GONZALEZ MD Patient complains of: Abdominal pains History of Present Illness: CHELSEY OSORIO is a 53 year old female with history of gastric bypass, psoriatic arthritis on Humira and methotrexate, has been having right upper quadrant pains off and on for the past 2 months. For the past 2 days is been having persistent right upper quadrant pains radiating to the back and to the rest of the abdomen. Admits to having nausea. Admits to having chills but no fever. Past Medical History Cardiac Medical History: Reports: Hyperlipidema, Hypertension - IRBESARTIN Denies: Coronary Artery Disease, Myocardial Infarction Pulmonary Medical History: Reports: Pneumonia - 2017 Denies: Asthma, Bronchitis, Chronic Obstructive Pulmonary Disease (COPD) Neurological Medical History: Reports: Migraine Denies: Seizures Musculoskeltal Medical History: Reports: Arthritis - PSORIATIC ARTHRITIS Hematology: Reports: Anemia - IRON DEFICIENT Past Surgical History Past Surgical History: Reports: Section, Gastric Bypass Surgery, Or thopedic Surgery - Status post open reduction internal fixation of a right distal femoral fritz, Other - Sphenocath Social History Lives with: Family Smoking Status: Never Smoker Electronic Cigarette use?: No Frequency of Alcohol Use: None Hx Recreational Drug Use: No Hx Prescription Drug Abuse: No Family History Family History: Reviewed & Not Pertinent Parental Family History Reviewed: Yes Children Family History Reviewed: No Sibling(s) Family History Reviewed.: No Medication/Allergy Home Medications: Furosemide [Lasix 20 mg Tablet] 20 mg PO DAILY 10/30/16 Rosuvastatin Calcium [Crestor 20 mg Tablet] 20 mg PO DAILY 10/30/16 Sertraline HCl [Zoloft 50 mg Tablet] 50 mg PO QHS 10/30/16 Tizanidine HCl [Zanaflex] 2 mg PO QHS 10/30/16 Trazodone HCl [Desyrel 50 mg Tablet] 50 mg PO QHS 10/30/16 Zolmitriptan [Zomig] 5 mg PO ASDIR PRN 10/30/16 Zonisamide [Zonegran 100 mg Capsule] 100 mg PO QHS 10/30/16 Cholecalciferol (Vitamin D3) [Vitamin D3] 5,000 unit PO DAILY 06/20/18 Cyanocobalamin (Vitamin B-12) [Vitamin B-12] 1,000 mcg PO .MONTHLY PRN 06/20/18 Folic Acid [Folvite 1 mg Tablet] 1 mg PO DAILY 06/20/18 Irbesartan 75 mg PO DAILY 06/20/18 Methotrexate [Xatmep] 15 mg PO WE@1000 PRN 06/20/18 Naproxen Sod/Diphenhydramine [Aleve Pm Caplet] 1 each PO QHS 06/20/18 Naproxen Sodium [Aleve] 220 mg PO DAILY 06/20/18 Pseudoephedrine HCl [Sudafed 12 Hour] 120 mg PO DAILY 06/20/18 Ferrous Sulfate [Feosol 325 mg Tablet] 325 mg PO DAILY 07/04/18 Hydrocodone Bit/Acetaminophen [Hydrocodon-Acetaminophen 5-325] 1 each PO Q6HP PRN 07/04/18 Multivitamin [Tab-A-Amy (Multiple Vitamin) Tablet] 1 tab PO DAILY 07/04/18 L.acid/B.animalis,Bifi,Inf,Wilmar [5X Probiotic Capsule] 1 each PO ASDIR PRN #120 capsule 08/18/18 Allergies/Adverse Reactions: midazolam [From Versed] Allergy (Severe, Verified 04/08/19 13:41) promethazine [From Phenergan] Allergy (Severe, Verified 04/08/19 13:41) red dye Allergy (Severe, Verified 04/08/19 13:41) hydrocodone Adverse Reaction (Mild, Verified 04/08/19 13:41) Pruritis oxycodone Adverse Reaction (Mild, Verified 04/08/19 13:41) Pruritis pregabalin [From Lyrica] Adverse Reaction (Verified 04/08/19 13:41) Generalized edema Review of Systems Constitutional: PRESENT: as per HPI Cardiovascular: PRESENT: other - No chest pains Gastrointestinal: PRESENT: abdominal pain, diarrhea, nausea Genitourinary: PRESENT: other - No dysuria Musculoskeletal: PRESENT: back pain Psychiatric: PRESENT: anxiety Physical Exam Vital Signs: Temp Pulse Resp BP Pulse Ox 97.8 F 89 20 126/66 H 04/08/19 13:29 04/08/19 13:29 04/08/19 13:29 04/08/19 13:29 Intake & Output 04/07/19 04/08/19 04/09/19 06:59 06:59 06:59 Weight 90.7 kg General appearance: PRESENT: mild distress Head exam: PRESENT: atraumatic Eye exam: PRESENT: conjunctiva pink Mouth exam: PRESENT: dry mucosa Neck exam: PRESENT: full ROM Respiratory exam: PRESENT: clear to auscultation lela Cardiovascular exam: PRESENT: RRR Pulses: PRESENT: normal radial pulses Vascular exam: PRESENT: normal capillary refill GI/Abdominal exam: PRESENT: soft, tenderness - Right upper quadrant Rectal exam: PRESENT: deferred Neurological exam: PRESENT: alert, oriented to person, oriented to place, oriented to time, oriented to situation Psychiatric exam: PRESENT: appropriate affect Skin exam: PRESENT: normal color, warm Results Laboratory Results: 04/08/19 14:59 04/08/19 14:59 04/08/19 04/08/19 04/08/19 14:10 14:59 14:59 WBC 5.2 RBC 4.13 Hgb 12.6 Hct 36.9 MCV 90 MCH 30.5 MCHC 34.1 RDW 14.7 H Plt Count 185 Seg Neutrophils % 60.5 Sodium 142.0 Potassium 3.9 Chloride 106 Carbon Dioxide 28 Anion Gap 8 BUN 11 Creatinine 0.64 Est GFR ( Amer) > 60 Glucose 77 Calcium 9.1 Total Bilirubin 0.6 AST 20 Alkaline Phosphatase 86 Total Protein 7.0 Albumin 4.3 Lipase 148.6 Urine Color YELLOW Urine Appearance CLEAR Urine pH 5.0 Ur Specific [place] 1.013 Urine Protein NEGATIVE Urine Glucose (UA) NEGATIVE Urine Ketones NEGATIVE Urine Blood NEGATIVE Urine RBC (Auto) 2 Impressions: Abdomen Ultrasound 04/08/19 13:48 IMPRESSION: 1. Mildly distended gallbladder containing sludge. No gallbladder wall thickening. No pericholecystic fluid. No biliary ductal dilation. Positive sonographic Stokes sign. Findings are equivocal for acute cholecystitis. HIDA may be used to evaluate patency of the cystic duct if desired. 2. Hepatic steatosis. Assessment & Plan - Diagnosis (1) Psoriatic arthritis Is this a current diagnosis for this admission?: Yes (2) Status post gastric bypass for obesity Is this a current diagnosis for this admission?: Yes (3) Abdominal pain Qualifiers: Abdominal location: right upper quadrant Qualified Code(s): R10.11 - Right upper quadrant pain Is this a current diagnosis for this admission?: Yes (4) Gallbladder sludge Is this a current diagnosis for this admission?: Yes - Time Time Spent: 30 to 50 Minutes - Inpatient Certification Medical Necessity: Need For IV Fluids, Need for IV Antibiotics, Need for Surgery - Plan Summary Plan Summary: 53-year-old female with off and on right upper quadrant pains for the past 2months and worse in the past 2 days associated with nausea. She had an ultrasound which showed gallbladder sludge and tender in the right upper quadrant. Has a history of the attic arthritis and status post gastric bypass. Plans: Medical consultation for psoriatic arthritis and multiple allergies. She is on Humira and methotrexate Hydrate and start IV antibiotics We will schedule laparoscopic cholecystectomy in the morning
--- NOTE | 2019-04-08 18:50 | PDOC CONSULTATION ---
Consultation Consult Date: 04/08/19 Attending physician:: ANIKET HARVEY Provider Consulted: LALO CAGE Consult reason:: Medical management of comorbid conditions, help with antibiotics. History of Present Illness Admission Date/PCP: 04/08/19 18:07 YARELI GONZALEZ MD Patient complains of: Abdominal pain and nausea History of Present Illness: CHELSEY OSORIO is a 53 year old female with a history of Chiari I malformation, Psoriatic arthritis, hypertension, migraines, iron deficiency anemia, B12 deficiency, vitamin D deficiency, gastric bypass, diaphragmatic paralysis- unilateral, mild aortic insufficiency, who presents with complaints of abdominal pain, nausea and diarrhea for the past 3 days. Patient denies eating anything unusual recently. States that the pain is in lower abdomen as well as epigastric and right upper quadrant. No significant radiation to anywhere else. Exacerbated by eating food. Patient states that diarrhea has now resolved as she has not had any bowel movement all day though she had 5 bowel movements y esterday. Patient had abdominal ultrasound done recently on 03/30/2019 which showed dilated gallbladder with sludge. RUQ ultrasound done in the ER today revealed mildly dilated gallbladder with sludge and positive Stokes sign which resulted equivocal for cholecystitis. Patient be taken to the OR tomorrow for cholecystectomy. Hospitalist service consulted for management of patient's chronic comorbids as well as antibiotic selection. Past Medical History Past Medical History: Chiari I malformation, Psoriatic arthritis, hypertension, migraines, iron deficiency anemia, B12 deficiency, vitamin D deficiency, gastric bypass, diaphragmatic paralysis-unilateral, mild aortic insufficiency Cardiac Medical History: Reports: Hyperlipidema, Hypertension - IRBESARTIN Denies: Coronary Artery Disease, Myocardial Infarction Pulmonary Medical History: Reports: Pneumonia - 2017 Denies: Asthma, Bronchitis, Chronic Obstructive Pulmonary Disease (COPD) Neurological Medical History: Reports: Migraine Denies: Seizures Musculoskeltal Medical History: Reports: Arthritis - PSORIATIC ARTHRITIS Hematology: Reports: Anemia - IRON DEFICIENT Past Surgical History Past Surgical History: Reports: Section, Gastric Bypass Surgery, Orthopedic Surgery - Status post open reduction internal fixation of a right distal femoral fritz, Other - Sphenocath Social History Information Source: Patient Lives with: Family Smoking Status: Never Smoker Electronic Cigarette use?: No Frequency of Alcohol Use: None Hx Recreational Drug Use: No Hx Prescription Drug Abuse: No - Advance Directive Resuscitation Status: Full Code Family History Family History: Arthritis Parental Family History Reviewed: Yes Children Family History Reviewed: NA Sibling(s) Family History Reviewed.: NA Medication/Allergy Home Medications: Furosemide [Lasix 20 mg Tablet] 20 mg PO DAILY 10/30/16 Rosuvastatin Calcium [Crestor 20 mg Tablet] 20 mg PO DAILY 10/30/16 Sertraline HCl [Zoloft 50 mg Tablet] 50 mg PO QHS 10/30/16 Tizanidine HCl [Zanaflex] 2 mg PO QHS 10/30/16 Trazodone HCl [Desyrel 50 mg Tablet] 50 mg PO QHS 10/30/16 Zolmitriptan [Zomig] 5 mg PO ASDIR PRN 10/30/16 Zonisamide [Zonegran 100 mg Capsule] 100 mg PO QHS 10/30/16 Cholecalciferol (Vitamin D3) [Vitamin D3] 5,000 unit PO DAILY 06/20/18 Cyanocobalamin (Vitamin B-12) [Vitamin B-12] 1,000 mcg PO .MONTHLY PRN 06/20/18 Folic Acid [Folvite 1 mg Tablet] 1 mg PO DAILY 06/20/18 Irbesartan 75 mg PO DAILY 06/20/18 Methotrexate [Xatmep] 15 mg PO WE@1000 PRN 06/20/18 Naproxen Sod/Diphenhydramine [Aleve Pm Caplet] 1 each PO QHS 06/20/18 Naproxen Sodium [Aleve] 220 mg PO DAILY 06/20/18 Pseudoephedrine HCl [Sudafed 12 Hour] 120 mg PO DAILY 06/20/18 Ferrous Sulfate [Feosol 325 mg Tablet] 325 mg PO DAILY 07/04/18 Hydrocodone Bit/Acetaminophen [Hydrocodon-Acetaminophen 5-325] 1 each PO Q6HP PRN 07/04/18 Multivitamin [Tab-A-Amy (Multiple Vitamin) Tablet] 1 tab PO DAILY 07/04/18 L.acid/B.animalis,Bifi,Inf,Wilmar [5X Probiotic Capsule] 1 each PO ASDIR PRN #120 capsule 08/18/18 Allergies/Adverse Reactions: midazolam [From Versed] Allergy (Severe, Verified 04/08/19 13:41) promethazine [From Phenergan] Allergy (Severe, Verified 04/08/19 13:41) red dye Allergy (Severe, Verified 04/08/19 13:41) hydrocodone Adverse Reaction (Mild, Verified 04/08/19 13:41) Pruritis oxycodone Adverse Reaction (Mild, Verified 04/08/19 13:41) Pruritis pregabalin [From Lyrica] Adverse Reaction (Verified 04/08/19 13:41) Generalized edema Review of Systems Constitutional: PRESENT: headache(s). ABSENT: chills, fatigue, fever(s) Eyes: ABSENT: visual disturbances Nose, Mouth, and Throat: PRESENT: headache(s) Cardiovascular: PRESENT: chest pain - And recent episode of chest pain few weeks ago but none currently. Of note she had a Lexiscan stress test done at the time by Dr. Joaquim Gates but is still awaiting results. Respiratory: ABSENT: cough, dyspnea Gastrointestinal: PRESENT: abdominal pain, nausea. ABSENT: vomiting Genitourinary: ABSENT: difficulty urinating, dysuria Neurological: ABSENT: confusion Endocrine: PRESENT: flushing. ABSENT: polyuria Physical Exam Vital Signs: Temp Pulse Resp BP Pulse Ox 97.8 F 89 20 126/66 H 04/08/19 13:29 04/08/19 13:29 04/08/19 13:29 04/08/19 13:29 Intake & Output 04/07/19 04/08/19 04/09/19 06:59 06:59 06:59 Weight 90.7 kg General appearance: PRESENT: no acute distress, cooperative Head exam: PRESENT: normocephalic Eye exam: PRESENT: EOMI Neck exam: ABSENT: JVD Respiratory exam: PRESENT: clear to auscultation lela, unlabored. ABSENT: tachypnea, wheezes Cardiovascular exam: PRESENT: +S1, +S2. ABSENT: diastolic murmur, systolic murmur, tachycardia GI/Abdominal exam: PRESENT: normal bowel sounds, soft, tenderness - Tenderness present in all 4 quadrants of moderate palpation.. ABSENT: distended, firm, guarding, rebound, rigid Musculoskeletal exam: PRESENT: ambulatory Neurological exam: PRESENT: alert, awake, oriented to person, oriented to place, oriented to time, oriented to situation Psychiatric exam: ABSENT: agitated Skin exam: PRESENT: other - Flushed Results Laboratory Results: 04/08/19 14:59 04/08/19 14:59 04/08/19 04/08/19 04/08/19 14:10 14:59 14:59 WBC 5.2 RBC 4.13 Hgb 12.6 Hct 36.9 MCV 90 MCH 30.5 MCHC 34.1 RDW 14.7 H Plt Count 185 Seg Neutrophils % 60.5 Sodium 142.0 Potassium 3.9 Chloride 106 Carbon Dioxide 28 Anion Gap 8 BUN 11 Creatinine 0.64 Est GFR ( Amer) > 60 Glucose 77 Calcium 9.1 Total Bilirubin 0.6 AST 20 Alkaline Phosphatase 86 Total Protein 7.0 Albumin 4.3 Lipase 148.6 Urine Color YELLOW Urine Appearance CLEAR Urine pH 5.0 Ur Specific [place] 1.013 Urine Protein NEGATIVE Urine Glucose (UA) NEGATIVE Urine Ketones NEGATIVE Urine Blood NEGATIVE Urine RBC (Auto) 2 Impressions: Abdomen Ultrasound 04/08/19 13:48 IMPRESSION: 1. Mildly distended gallbladder containing sludge. No gallbladder wall thickening. No pericholecystic fluid. No biliary ductal dilation. Positive sonographic Stokes sign. Findings are equivocal for acute cho lecystitis. HIDA may be used to evaluate patency of the cystic duct if desired. 2. Hepatic steatosis. Assessment and Plan - Diagnosis (1) Gallbladder sludge Is this a current diagnosis for this admission?: Yes Plan: Surgery is planning for for cholecystectomy tomorrow Recommend Ancef and Flagyl perioperatively. I have placed these orders. No significant interaction with methotrexate or Humira. (2) Psoriatic arthritis Is this a current diagnosis for this admission?: Yes Plan: Stable Hold methotrexate and Humira for now. (3) Iron deficiency anemia following bariatric surgery Is this a current diagnosis for this admission?: Yes Plan: Continue ferrous sulfate. (4) Vitamin D deficiency Is this a current diagnosis for this admission?: Yes Plan: Continue vitamin D supplements. (5) Hypertension Is this a current diagnosis for this admission?: Yes Plan: Irbesartan converted to losartan 25 mg daily. (6) Chronic pain disorder Is this a current diagnosis for this admission?: Yes Plan: Continue patient's pain regimen. - Time Time Spent with patient: 35 or more minutes
[2019-04-08] MEDS ORDERED: CEFAZOLIN 1 GM/D5W RTU 1 GM/50 ML RTUPB IV ONE (19:30)
[2019-04-08] MEDS ORDERED: METRONIDAZOLE 500 MG/NS RTU 500 MG/100 ML RTUPB IV ONE (19:30)
[2019-04-08] MEDS ORDERED: MORPHINE SULFATE 10 MG/ML INJ IV PRN (20:36)
[2019-04-08] MEDS ORDERED: CEFAZOLIN 1 GM/D5W RTU 2 GM/100 ML RTUPB IV ONE (21:06)
[2019-04-08] MEDS ORDERED: DIPHENHYDRAMINE HCL 25 MG CAPSULE ONE (21:10)
[2019-04-08] MEDS ORDERED: DIPHENHYDRAMINE HCL 50 MG/ML VIAL IV PRN (21:17)
[2019-04-08] MEDS ORDERED: KETOROLAC TROMETHAMINE 10 MG TABLET PO PRN (21:19)
[2019-04-08] MEDS ORDERED: ONDANSETRON HCL INJ/PF 4 MG/2 ML SDV IV PRN (21:22)
[2019-04-09] MEDS ORDERED: CEFAZOLIN 1 GM/D5W RTU 1 GM/50 ML RTUPB IV SCH (02:00)
[2019-04-09] MEDS: METRONIDAZOLE 500 MG/NS RTU 500 MG/100 ML RTUPB IV SCH ×3 (03:50→19:14)
[2019-04-09] MEDS: HYDROMORPHONE HCL INJ/PF 2 MG/ML AMPULE IV PRN ×3 (04:23→22:06)
[2019-04-09] MEDS ORDERED: FENTANYL CITRATE INJ/PF 250 MCG/5 ML AMPULE ONE (08:59)
[2019-04-09] MEDS ORDERED: ONDANSETRON HCL INJ/PF 4 MG/2 ML SDV ONE (09:00)
[2019-04-09] MEDS ORDERED: MIDAZOLAM 2 MG/2 ML INJ ONE (09:00)
[2019-04-09] MEDS ORDERED: DEXAMETHASONE SOD PHOSPHATE INJ 4 MG/1 ML VIAL ONE (09:00)
[2019-04-09] MEDS ORDERED: PROPOFOL INJ 200 MG/20 ML VIAL IV ONE (09:00)
[2019-04-09] MEDS ORDERED: BUPIVACAINE HCL 0.25 % INJ/PF (2.5 MG/1 ML) 30 ML VIAL ONE (09:07)
[2019-04-09] MEDS ORDERED: DIPHENHYDRAMINE HCL 50 MG/ML VIAL ONE (09:39)
[2019-04-09] MEDS ORDERED: FENTANYL CITRATE INJ/PF 100 MCG/2 ML AMPUL IV PRN ×3 (09:54)
[2019-04-09] MEDS ORDERED: DIPHENHYDRAMINE HCL 50 MG/ML VIAL IV PRN ×2 (09:54→15:03)
[2019-04-09] MEDS ORDERED: MEPERIDINE HCL/PF INJ 25 MG/1 ML DISP.SYRIN IV PRN (09:54)
[2019-04-09] MEDS ORDERED: LOSARTAN POTASSIUM 25 MG TABLET PO SCH (10:00)
[2019-04-09] MEDS ORDERED: EPHEDRINE SULFATE INJ 50 MG/1 ML AMPULE ONE (10:43)
--- NOTE | 2019-04-09 10:43 | Operative Report ---
Operative Report DATE OF SURGERY: 04/09/19 PREOPERATIVE DIAGNOSIS: Biliary sludge. Biliary colic POSTOPERATIVE DIAGNOSIS: Same with chronic cholecystitis OPERATION: Laparoscopic cholecystectomy SURGEON: ANIKET HARVEY ANESTHESIA: GA TISSUE REMOVED OR ALTERED: Gallbladder COMPLICATIONS: None ESTIMATED BLOOD LOSS: 10 cc QUANTITATIVE BLOOD LOSS: 10 INTRAOPERATIVE FINDINGS: Adhesions primarily of omentum on the gallbladder. Gallbladder does not look inflamed. PROCEDURE: Patient was placed in the supine position and after adequate general anesthesia the abdomen was then prepped and draped in the usual sterile fashion. Appropriate timeout was then called. An infraumbilical incision made in the fascia identified and grasped with [place] clamps on each side and divided between the Avery clamps. 2 sutures of 0 Vicryl were placed on each side of the Avery clamps and the clamps were released. The opening between the Avery clamps were was then dilated with a hemostat and finger dilation. The inside of the peritoneal cavity was palpated no evidence of adhesions. Next a Crystal trocar was inserted through the fascial defect into the abdominal cavity and CO2 insufflated to a pressure of 15 mmHg. 3 other trochars were placed 612 mm subxiphoid and two 5 mm in the right upper quadrant. The gallbladder was noted to have a lot of adhesions primary of the omentum. Adhesions were lysed bluntly and with the use of the harmonic satinder. Fundus of the gallbladder was grasped and lifted over the gallbladder. Cystic duct area was dissected. Infundibulum was also grasped with a grasper and after the cystic duct and cystic artery identified and dissected and after the angle of safety safety established the cystic duct was then clipped with 3 clips in the cystic duct divided between the distal clips. Cystic artery was then clipped with hemoclips proximally and divided with the use of the harmonic satinder between the clip in the gallbladder. Gallbladder was then taken off the liver bed with the use of the harmonic satinder. Small amount of oozing noted and prior to removing the gallbladder completely a piece of Surgicel was then pack in the area of the gallbladder bed on the liver. Gallbladder was then removed completely and placed in an Endobag and pulled out through the umbilical port. No evidence of active bleeding noted and all the trochars were then removed and CO2 allowed to come out of the trocar sites. Fascial defect at the infrau mbilical area was then closed with a [id number] suture using 0 Vicryl and the 2 stay sutures tied over. The fascia was then injected with Marcaine as well as all the skin incisions. All the skin incisions were then closed with running subcuticular 4-0 Vicryl undyed. Steri-Strips placed over the operative sites. Needle instrument sponge were all correct and estimated blood loss about 10 cc. Patient then brought to the recovery room extubated in satisfactory condition.
[2019-04-09] MEDS ORDERED: METOCLOPRAMIDE HCL INJ/PF 10 MG/2 ML SDV ONE (10:46)
[2019-04-09] MEDS ORDERED: OXYCODONE-ACETAMINOPHEN 5-325 MG TABLET PO PRN (10:53)
[2019-04-09] MEDS: CEFAZOLIN SODIUM 1 GM in DEXTROSE 5%-WATER 50 ML IV SCH ×2 (12:13→18:15)
[2019-04-09] MEDS: KETOROLAC TROMETHAMINE INJ/PF 30 MG/1 ML SDV IV SCH ×2 (12:16→18:18)
[2019-04-09] MEDS: NORMAL SALINE 1000 ML 1,000 ML IV PRN (12:23)
--- NOTE | 2019-04-09 15:07 | PDOC PROGRESS REPORT ---
Subjective Progress Note for:: 04/09/19 Subjective:: Patient still having some abdominal cramping. Otherwise feels well. Denies any shortness of breath, chest pain nausea or vomiting. Reason For Visit: GALLBLADDER SLUDGE,BILIARY COLIC,PSORIATIC ARTHRIT Physical Exam Vital Signs: Temp Pulse Resp BP Pulse Ox 97.9 F 97 16 111/57 L 94 04/09/19 13:55 04/09/19 13:55 04/09/19 13:55 04/09/19 13:55 04/09/19 13:55 Intake & Output 04/08/19 04/09/19 04/10/19 06:59 06:59 06:59 Intake Total 1470 1260 Output Total 505 Balance 1470 755 Weight 99.518 kg General appearance: PRESENT: no acute distress, cooperative Neck exam: ABSENT: JVD Respiratory exam: PRESENT: clear to auscultation lela Cardiovascular exam: PRESENT: +S1, +S2 GI/Abdominal exam: PRESENT: soft, tenderness Musculoskeletal exam: PRESENT: ambulatory Neurological exam: PRESENT: alert, awake Psychiatric exam: PRESENT: normal mood. ABSENT: agitated, anxious Skin exam: PRESENT: normal color Results Laboratory Results: 04/08/19 14:59 04/08/19 14:59 04/08/19 04/08/19 04/09/19 14:59 14:59 10:08 WBC 5.2 RBC 4.13 Hgb 12.6 Hct 36.9 MCV 90 MCH 30.5 MCHC 34.1 RDW 14.7 H Plt Count 185 Seg Neutrophils % 60.5 Sodium 142.0 Potassium 3.9 Chloride 106 Carbon Dioxide 28 Anion Gap 8 BUN 11 Creatinine 0.64 Est GFR ( Amer) > 60 Glucose 77 Calcium 9.1 Total Bilirubin 0.6 AST 20 Alkaline Phosphatase 86 Total Protein 7.0 Albumin 4.3 Lipase 148.6 Blood Type A POSITIVE Antibody Screen NEGATIVE Impressions: Abdomen Ultrasound 04/08/19 13:48 IMPRESSION: 1. Mildly distended gallbladder containing sludge. No gallbladder wall thickening. No pericholecystic fluid. No biliary ductal dilation. Positive sonographic Stokes sign. Findings are equivocal for acute cholecystitis. HIDA may be used to evaluate patency of the cystic duct if desired. 2. Hepatic steatosis. Assessment and Plan - Diagnosis (1) Gallbladder sludge Is this a current diagnosis for this admission?: Yes Plan: Cholecystectomy in OR today Ancef and Flagyl perioperatively only No need for antibiotics upon discharge (2) Psoriatic arthritis Is this a current diagnosis for this admission?: Yes Plan: Stable Patient can resume methotrexate on next dose when home. Hold Humira for 1-2 weeks. (3) Iron deficiency anemia following bariatric surgery Is this a current diagnosis for this admission?: Yes Plan: Continue ferrous sulfate. (4) Vitamin D deficiency Is this a current diagnosis for this admission?: Yes Plan: Stable. Continue vitamin D supplements. (5) Hypertension Is this a current diagnosis for this admission?: Yes Plan: I held losartan this morning before OR given soft blood pressure. Patient can resume irbesartan upon discharge. (6) Chronic pain disorder Is this a current diagnosis for this admission?: Yes Plan: Continue patient's pain regimen. - Time Time Spent with patient: Less than 15 minutes
[2019-04-09] MEDS: DIPHENHYDRAMINE HCL 25 MG CAPSULE PO PRN (22:05)
[2019-04-10] MEDS: KETOROLAC TROMETHAMINE INJ/PF 30 MG/1 ML SDV IV SCH ×3 (00:07→11:48)
[2019-04-10] MEDS: CEFAZOLIN SODIUM 1 GM in DEXTROSE 5%-WATER 50 ML IV SCH ×2 (01:24→09:39)
[2019-04-10] MEDS: NORMAL SALINE 1000 ML 1,000 ML IV PRN ×2 (01:24→02:37)
[2019-04-10] MEDS: METRONIDAZOLE 500 MG/NS RTU 500 MG/100 ML RTUPB IV SCH ×2 (02:36→10:31)
[2019-04-10 09:32] VITALS: BP 109/73
[2019-04-10] MEDS: HYDROMORPHONE HCL INJ/PF 2 MG/ML AMPULE IV PRN (09:50)
[2019-04-10] MEDS: DIPHENHYDRAMINE HCL 25 MG CAPSULE PO PRN (09:55)
--- NOTE | 2019-04-10 10:58 | PDOC PROGRESS REPORT ---
Subjective Progress Note for:: 04/10/19 Subjective:: Patient is doing well today. Patient states she has only mild abdominal pain. Patient denies any lightheadedness or dizziness. Denies fever. Reason For Visit: GALLBLADDER SLUDGE,BILIARY COLIC,PSORIATIC ARTHRIT Physical Exam Vital Signs: Temp Pulse Resp BP Pulse Ox 98.3 F 60 18 109/73 100 04/10/19 09:27 04/10/19 09:27 04/10/19 09:27 04/10/19 09:27 04/10/19 09:27 Intake & Output 04/09/19 04/10/19 04/11/19 06:59 06:59 06:59 Intake Total 1470 4430 Output Total 1505 Balance 1470 2925 Weight 99.518 kg 105.6 kg General appearance: PRESENT: no acute distress, cooperative Neck exam: ABSENT: JVD Respiratory exam: PRESENT: clear to auscultation lela Cardiovascular exam: PRESENT: +S1, +S2 GI/Abdominal exam: PRESENT: normal bowel sounds, soft, tenderness - Mild, other - Incision sites noted no drainage.. ABSENT: guarding, rebound, rigid Musculoskeletal exam: PRESENT: ambulatory Neurological exam: PRESENT: alert, awake Results Laboratory Results: 04/08/19 14:59 04/08/19 14:59 Impressions: Abdomen Ultrasound 04/08/19 13:48 IMPRESSION: 1. Mildly distended gallbladder containing sludge. No gallbladder wall thickening. No pericholecystic fluid. No biliary ductal dilation. Positive sonographic Stokes sign. Findings are equivocal for acute cholecystitis. HIDA may be used to evaluate patency of the cystic duct if desired. 2. Hepatic steatosis. Assessment and Plan - Diagnosis (1) Gallbladder sludge Is this a current diagnosis for this admission?: Yes Plan: s/p cholecystectomy Rest of management as per surgery (2) Psoriatic arthritis Is this a current diagnosis for this admission?: Yes Plan: Stable Patient can resume methotrexate on next dose or in 1 week. Hold Humira for 1-2 weeks. (3) Iron deficiency anemia following bariatric surgery Is this a current diagnosis for this admission?: Yes Plan: Continue ferrous sulfate. (4) Vitamin D deficiency Is this a current diagnosis for this admission?: Yes Plan: Stable. Continue vitamin D supplements. (5) Hypertension Is this a current diagnosis for this admission?: Yes Plan: I have told patient to resume irbesartan once her systolic blood pressure measurements at home start to go above 120. (6) Chronic pain disorder Is this a current diagnosis for this admission?: Yes Plan: Stable. - Plan Summary Summary: Patient is being planned for discharge by primary service. I will sign off. - Time Time Spent with patient: Less than 15 minutes
== END 2019-04-10 14:39 | disposition home or self-care (01) ==
LOC: ER 13:09 → INTOOBSV 18:07 → EH 18:07 → 4N 19:10
PROVIDERS: ADMIT Surgery; ATTEND Surgery
PROC: 0DNU4ZZ Release Omentum, Percutaneous Endoscopic Approach (ICD-10-PCS; 2019-04-09)
PROC: 0FT44ZZ Resection of Gallbladder, Percutaneous Endoscopic Approach (ICD-10-PCS; principal; 2019-04-09 10:30)
DX: K81.1 Chronic cholecystitis (principal); K66.0 Peritoneal adhesions (postprocedural) (postinfection); G93.5 Compression of brain; L40.50 Arthropathic psoriasis, unspecified; I10 Essential (primary) hypertension; R51 Headache; R23.2 Flushing; K95.89 Other complications of other bariatric procedure; D50.8 Other iron deficiency anemias; Y83.8 Other surgical procedures as the cause of abnormal reaction of the patient, or of later complication, without mention of misadventure at the time of the procedure; E55.9 Vitamin D deficiency, unspecified; G89.29 Other chronic pain; E78.5 Hyperlipidemia, unspecified; F41.9 Anxiety disorder, unspecified; Z79.899 Other long term (current) drug therapy; Z88.8 Allergy status to other drugs, medicaments and biological substances; Z91.048 Other nonmedicinal substance allergy status
CPT/HCPCS: 99285; 96374; 96375; 86900; 86901; 36415 ×2; 86850; 83690; 85025; 80053; 81001; 88304 ×2; 76705; 00790; 47562; 49329; G0378 ×4; J0690 ×3; J1100; J1200; J3490 ×4; J3010; J1885 ×2; J2765; J2270; J1170 ×2; J2405 ×2; J7060 ×2; J7121; J7030 ×3; J2704; 790; J2250

== ENCOUNTER 2019-05-30 13:25 | Emergency (ER) | payer OTHER, BC ==
[2019-05-30] MEDS ORDERED: LIDOCAINE 1% INJ-PF (10 MG/ML) 30 ML SDV INJ ONE (13:59)
[2019-05-30] MEDS ORDERED: DIPH/PERTUSS(ACELL)/TETANUS VAC/PF 0.5 ML SYR (>=10YO) IM ONE (15:23)
--- NOTE | 2019-05-30 15:24 | ER Document Report ---
HPI - HPI Time Seen by Provider: 05/30/19 13:47 Pain Level: 2 Notes: 53-year-old female patient presenting to the emergency department with chief complaint of dog bite to her right hand. Patient reports her dogs were fighting and she tried to separate them as they were fighting over a food bowl. She states she got a puncture wound/laceration to her right hand. She reports this happened just prior to arrival. She reports all immunizations are up-to-date on the animals, she is unsure of her last tetanus. - CONSTITUTIONAL Constitutional: DENIES: Fever, Chills - REPRODUCTIVE Reproductive: DENIES: : Past Medical History - General Information source: Patient - Social History Smoking Status: Never Smoker Chew tobacco use (# tins/day): No Frequency of alcohol use: None Drug Abuse: None Family History: Reviewed & Not Pertinent Patient has suicidal ideation: No Patient has homicidal ideation: No - Past Medical History Cardiac Medical History: Reports: Hx Hypercholesterolemia, Hx Hypertension - IRBESARTIN Denies: Hx Coronary Artery Disease, Hx Heart Attack Pulmonary Medical History: Reports: Hx Pneumonia - 2017 Denies: Hx Asthma, Hx Bronchitis, Hx COPD Neurological Medical History: Reports: Hx Migraine. Denies: Hx Cerebrovascular Accident, Hx Seizures Renal/ Medical History: Reports: Hx Kidney Stones. Denies: Hx Peritoneal Dialysis Musculoskeletal Medical History: Reports Hx Arthritis - PSORIATIC ARTHRITIS Past Surgical History: Reports: Hx Breast Surgery - reduction, Hx Section, Hx Gastric Bypass Surgery, Hx Orthopedic Surgery - Status post open reduction internal fixation of a right distal femoral fritz, Other - Sphenocath - Immunizations Hx Diphtheria, Pertussis, Tetanus Vaccination: Yes Vertical Provider Document - CONSTITUTIONAL Notes: PHYSICAL EXAMINATION: GENERAL: Well-appearing, well-nourished and in no acute distress. HEAD: Atraumatic, normocephalic. EYES: Pupils equal round extraocular movements intact, conjunctiva are normal. ENT: Nares patent NECK: Normal range of motion LUNGS: No respiratory distress Musculoskeletal: Normal range of motion NEUROLOGICAL: Normal speech, normal gait. PSYCH: Normal mood, normal affect. SKIN: 3 cm V-shaped laceration noted to the dorsal aspect of the right hand between the first and second digits. Cap refill less than 3 seconds, normal motor and sensation distal to injury. Strong radial pulse. Full range of motion to all digits. - INFECTION CONTROL TRAVEL OUTSIDE OF THE [place] IN LAST 30 DAYS: No Course - Re-evaluation Re-evalutation: Laceration was thoroughly irrigated and then loosely approximated with 2 sutures. Sterile dressing applied. Patient started on Augmentin. ED return precautions discussed. - Vital Signs Vital signs: Temp Pulse Resp BP Pulse Ox 98.0 F 71 18 107/63 98 05/30/19 13:32 05/30/19 13:32 05/30/19 13:32 05/30/19 13:32 05/30/19 13:32 Procedures - Laceration/Wound Repair Right hand Wound length (cm): 3 Wound's Depth, Shape: Irregular Laceration pre-procedure: Sterile PPE donned Anesthetic type: 1% Lidocaine Wound explored: Clean Wound Repaired With: Sutures Suture Size/Type: 4:0 Number of Sutures: 2 Discharge - Discharge Clinical Impression: Dog bite Qualifiers: Encounter type: initial encounter Qualified Code(s): W54.0XXA - Bitten by dog, initial encounter Condition: Stable Disposition: HOME, SELF-CARE Additional Instructions: Animal Bites Animal bites are often heavily contaminated with bacteria. In spite of thorough cleansing and proper treatment, these wounds frequently become infected. Bite wounds of the hands are especially prone to complications. Bites are dressed, if possible. Large wounds may require suturing after internal cleansing. Because of infection risk, some large wounds must remain unstitched. Your doctor is trained to advise you on the best treatment for your bite. Call the doctor at once if the wound becomes red, swollen, warm, increasingly painful, or if it begins to drain. Danger signs also include red streaks up the involved extremity, swollen glands in the groin or under the arm, or fever and chills. The risk of rabies from domestic animals is very low. Bats, sick animals, and wild animals may expose you to rabies. The physician, or the health department, will inform you if you will need to receive the rabies vaccine. Augmentin Augmentin is a mixture of amoxicillin and clavulanate. Amoxicillin is a member of the penicillin family. It covers the germs likely to cause ear, bronchial, and urinary infections better than plain penicillin. The addition of clavulanate allows it to cover staph infections of the skin, as well as resistant cases of ear and sinus infections. Your physician has chosen Augmentin for you because of the special nature of your situation. Augmentin is best taken with meals. Nausea after taking the medication is rare, but can occur. Diarrhea can occur, particularly in small children. Vaginal yeast infections, and oral thrush in infants are also common. Contact your physician if these problems occur. Allergy to penicillins is common. If you have had an allergic reaction to any drug of the penicillin family, you should never take any other penicillin. Notify your doctor at once if you develop hives, shortness of breath, swelling, or faintness. Tetanus Immunization Given You have been given an immunization against tetanus. Please record this in your records. In general, a booster is needed only once every 10 years. The tetanus shot protects against tetanus or "lockjaw," which is a complication of certain wound infections (the tetanus shot cannot protect against the actual infection). The immunization site may become warm and red due to local reaction. If this occurs, apply warm compresses and take aspirin or ibuprofen to reduce infl ammation and discomfort. Return for evaluation if the reaction becomes severe. Please take antibiotics as prescribed. Watch very closely for signs of infection to include increasing swelling, pain, redness, red streaking from the area, development of fever or any other worsening symptoms. Prescriptions: Amox Tr/Potassium Clavulanate [Augmentin 875-125 mg Tablet] 1 tab PO BID #10 tablet Referrals: YARELI GONZALEZ MD [Primary Care Provider] - Follow up as needed
[2019-05-30 16:00] VITALS: BP 103/66
== END 2019-05-30 15:58 | disposition home or self-care (01) ==
LOC: ER 13:25
DX: S61.451A Open bite of right hand, initial encounter (principal); W54.0XXA Bitten by dog, initial encounter; Y93.89 Activity, other specified; I10 Essential (primary) hypertension; Z23 Encounter for immunization
CPT/HCPCS: 90471; 90715; 99283

== ENCOUNTER 2019-06-05 17:54 | Emergency (ER) | payer OTHER, BC ==
--- NOTE | 2019-06-05 18:16 | ER Document Report ---
ED Medical Screen (RME) - General Chief Complaint: Chest Pain Stated Complaint: CHEST PAIN,NAUSE,VOMITING Time Seen by Provider: 06/05/19 18:10 Primary Care Provider: YARELI GONZALEZ MD [Primary Care Provider] - Follow up as needed TRAVEL OUTSIDE OF THE [place] IN LAST 30 DAYS: No - HPI Notes: 06/05/19 18:15 Patient is a 53-year-old female with a history of psoriatic arthritis, hypertension, cardiomegaly who presents complaining of left-sided chest pain that began about 45 minutes to 1 hour ago. The pain is been constant and will radiate a little bit down the left side of her chest. No other recent illness or fever. Patient states that she had a negative stress test in February/March timeframe. I have treated and performed a rapid initial assessment of this patient. A comprehensive ED assessment and evaluation of the patient, analysis of test results and completion of medical decision making process will be conducted by additional ED providers. PHYSICAL EXAMINATION: GENERAL: Well-appearing, well-nourished and in no acute distress. A&Ox4. Answers questions appropriately. Heart: RRR Lungs: CTAB Extremities: No edema - Related Data Allergies/Adverse Reactions: midazolam [From Versed] Allergy (Severe, Verified 05/30/19 13:47) promethazine [From Phenergan] Allergy (Severe, Verified 05/30/19 13:47) red dye Allergy (Severe, Verified 05/30/19 13:47) morphine Allergy (Mild, Verified 05/30/19 13:47) Hives hydrocodone Adverse Reaction (Mild, Verified 05/30/19 13:47) Pruritis oxycodone Adverse Reaction (Mild, Verified 05/30/19 13:47) Pruritis pregabalin [From Lyrica] Adverse Reaction (Verified 05/30/19 13:47) Generalized edema Past Medical History - Past Medical History Cardiac Medical History: Reports: Hx Hypercholesterolemia, Hx Hypertension - IRBESARTIN Denies: Hx Coronary Artery Disease, Hx Heart Attack Pulmonary Medical History: Reports: Hx Pneumonia - 2017 Denies: Hx Asthma, Hx Bronchitis, Hx COPD Neurological Medical History: Reports: Hx Migraine. Denies: Hx Cerebrovascular Accident, Hx Seizures Renal/ Medical History: Reports: Hx Kidney Stones. Denies: Hx Peritoneal Dialysis Musculoskeltal Medical History: Reports Hx Arthritis - PSORIATIC ARTHRITIS Past Surgical History: Reports: Hx Breast Surgery - reduction, Hx Section, Hx Gastric Bypass Surgery, Hx Orthopedic Surgery - Status post open reduction internal fixation of a right distal femoral fritz, Other - Sphenocath - Immunizations Hx Diphtheria, Pertussis, Tetanus Vaccination: Yes Doctor's Discharge - Discharge Referrals: YARELI GONZALEZ MD [Primary Care Provider] - Follow up as needed
[2019-06-05] MEDS ORDERED: ONDANSETRON 4 MG TAB.RAPDIS PO ONE (18:18)
--- NOTE | 2019-06-05 19:00 | RADIOLOGY REPORT (SQ) ---
EXAM DESCRIPTION: CHEST 2 VIEWS COMPLETED DATE/TIME: 06/05/2019 5:26 pm REASON FOR STUDY: CP COMPARISON: 02/26/2019 EXAM PARAMETERS: NUMBER OF VIEWS: two views TECHNIQUE: Digital Frontal and Lateral radiographic views of the chest acquired. RADIATION DOSE: NA LIMITATIONS: none FINDINGS: LUNGS AND PLEURA: No opacities, masses or pneumothorax. No pleural effusion. MEDIASTINUM AND HILAR STRUCTURES: No masses or contour abnormalities. HEART AND VASCULAR STRUCTURES: Heart normal size. No evidence for failure. BONES: No acute findings. HARDWARE: None in the chest. OTHER: No other significant finding. IMPRESSION: NO ACUTE RADIOGRAPHIC FINDING IN THE CHEST. TECHNICAL DOCUMENTATION: JOB ID: [id number] [employer]- All Rights Reserved Reading location - IP/workstation name: [email or web address]
[2019-06-05] MEDS ORDERED: HYDROMORPHONE HCL INJ/PF 2 MG/ML AMPULE IV ONE (19:01)
[2019-06-05 19:17] LABS: ABSOLUTE BASOPHILS # (AUTO) 0.1 10^3/uL (0.0-0.2); ABSOLUTE EOSINOPHILS # (AUTO) 0.1 10^3/uL (0.0-0.6); ABSOLUTE LYMPHOCYTES (AUTO) 1.7 10^3/uL (0.5-4.7); ABSOLUTE MONOCYTES (AUTO) 0.4 10^3/uL (0.1-1.4); ABSOLUTE NEUT (AUTO) 2.5 10^3/uL (1.7-8.2); BASOPHILS % (AUTO) 1.7 % (0-2); EOSINOPHILS % (AUTO) 2.7 % (0-6); HEMATOCRIT 33.5 % (36.0-47.0); HEMOGLOBIN 11.5 g/dL (12.0-15.5); MEAN CORPUSCULAR HEMOGLOBIN 31.2 pg (27.0-33.4); MEAN CORPUSCULAR HGB CONC 34.2 g/dL (32.0-36.0); MEAN CORPUSCULAR VOLUME 91 fl (80-97); MONOCYTES % (AUTO) 8.5 % (3-13); PLATELET COUNT 185 10^3/uL (150-450); RED BLOOD COUNT 3.67 10^6/uL (3.72-5.28); RED CELL DISTRIBUTION WIDTH 13.6 % (11.5-14.0); SEGMENTED NEUTROPHILS % (AUTO) 52.1 % (42-78); TOTAL CELLS COUNTED % (AUTO) 100 %; WHITE BLOOD COUNT 4.8 10^3/uL (4.0-10.5)
[2019-06-05 19:37] LABS: ALBUMIN 3.7 g/dL (3.5-5.0); ALKALINE PHOSPHATASE 83 U/L (38-126); ASPARTATE AMINO TRANSFERASE 35 U/L (14-36); BILIRUBIN,TOTAL 0.2 mg/dL (0.2-1.3); BLOOD UREA NITROGEN 20 mg/dL (7-20); CALCIUM 8.9 mg/dL (8.4-10.2); GLUCOSE 91 mg/dL (75-110); POTASSIUM 4.5 mmol/L (3.6-5.0)
[2019-06-05 19:43] LABS: ANION GAP 5 (5-19)
[2019-06-05 19:44] LABS: CARBON DIOXIDE 27 mmol/L (22-30); CHLORIDE 107 mmol/L (98-107)
[2019-06-05 19:53] LABS: NT PRO BNP 404 pg/mL (<125)
[2019-06-05 19:54] LABS: TROPONIN I < 0.012 ng/mL
[2019-06-05 20:03] VITALS: BP 110/62
--- NOTE | 2019-06-05 20:31 | ER Document Report ---
ED Cardiac - General Chief Complaint: Chest Pain Stated Complaint: CHEST PAIN,NAUSE,VOMITING Time Seen by Provider: 06/05/19 18:10 Primary Care Provider: YARELI GONZALEZ MD [Primary Care Provider] - Follow up as needed Mode of Arrival: Ambulatory Information source: Patient TRAVEL OUTSIDE OF THE [place] IN LAST 30 DAYS: No - HPI Notes: Patient presents tonight with approximately 3 hours of left-sided chest pain. She states it is now improving. It had a sudden onset. It was constant and moderate. It is located in the left chest and did radiate to the left arm. No shortness of breath or sweating. She states it feels similar to some previous chest pain she has had. She states she had a normal stress test in March 18. No recent cough cold or congestion. She states she has had abdominal distention and burping tonight. - Related Data Allergies/Adverse Reactions: midazolam [From Versed] Allergy (Severe, Verified 05/30/19 13:47) promethazine [From Phenergan] Allergy (Severe, Verified 05/30/19 13:47) red dye Allergy (Severe, Verified 05/30/19 13:47) morphine Allergy (Mild, Verified 05/30/19 13:47) Hives hydrocodone Adverse Reaction (Mild, Verified 05/30/19 13:47) Pruritis oxycodone Adverse Reaction (Mild, Verified 05/30/19 13:47) Pruritis pregabalin [From Lyrica] Adverse Reaction (Verified 05/30/19 13:47) Generalized edema Past Medical History - General Information source: Patient - Social History Smoking Status: Former Smoker Frequency of alcohol use: None Drug Abuse: None Family History: Reviewed & Not Pertinent Patient has suicidal ideation: No Patient has homicidal ideation: No - Past Medical History Cardiac Medical History: Reports: Hx Hypercholesterolemia, Hx Hypertension - IRBESARTIN Denies: Hx Coronary Artery Disease, Hx Heart Attack Pulmonary Medical History: Reports: Hx Pneumonia - 2017 Denies: Hx Asthma, Hx Bronchitis, Hx COPD Neurological Medical History: Reports: Hx Migraine. Denies: Hx Cerebrovascular Accident, Hx Seizures Renal/ Medical History: Reports: Hx Kidney Stones. Denies: Hx Peritoneal Dialysis Musculoskeletal Medical History: Reports Hx Arthritis - PSORIATIC ARTHRITIS Past Surgical History: Reports: Hx Breast Surgery - reduction, Hx Section, Hx Gastric Bypass Surgery, Hx Orthopedic Surgery - Status post open reduction internal fixation of a right distal femoral fritz, Other - Sphenocath - Immunizations Hx Diphtheria, Pertussis, Tetanus Vaccination: Yes Review of Systems - Review of Systems Constitutional: denies: Chills, Fever Cardiovascular: Chest pain. denies: Palpitations Respiratory: denies: Cough, Short of breath -: Yes All other systems reviewed and negative Physical Exam - Vital signs Vitals: Temp Pulse Resp BP Pulse Ox 97.1 F 55 L 20 140/76 H 96 06/05/19 18:11 06/05/19 18:11 06/05/19 18:11 06/05/19 18:11 06/05/19 18:11 Interpretation: Normal - General General appearance: Appears well, Alert - HEENT Head: Normocephalic, Atraumatic Eyes: Normal Pupils: PERRL - Respiratory Respiratory status: No respiratory distress Chest status: Nontender Breath sounds: Normal Chest palpation: Normal - Cardiovascular Rhythm: Regular Heart sounds: Normal auscultation Murmur: No - Abdominal Inspection: Normal Distension: No distension Bowel sounds: Normal Tenderness: Nontender Organomegaly: No organomegaly - Back Back: Normal, Nontender - Extremities General upper extremity: Normal inspection, Nontender, Normal color, Normal ROM, Normal temperature General lower extremity: Normal inspection, Nontender, Normal color, Normal ROM, Normal temperature, Normal weight bearing. No: Cynthia's sign - Neurological Neuro grossly intact: Yes Cognition: Normal Orientation: AAOx4 Palm Coma Scale Eye Opening: Spontaneous Gillian Coma Scale Verbal: Oriented Palm Coma Scale Motor: Obeys Commands Gillian Coma Scale Total: 15 Speech: Normal Motor strength normal: LUE, RUE, LLE, RLE Sensory: Normal - Psychological Associated symptoms: Normal affect, Normal mood - Skin Skin Temperature: Warm Skin Moisture: Dry Skin Color: Normal Course - Re-evaluation Re-evalutation: 06/05/19 20:33 Patient presents with chest pain. Patient's HEART score is 3, and considering that she had a normal stress test 2 months ago I do not feel the patient warrants further evaluation here in the emergency department. EKG does not show any acute ischemic changes. First troponin is normal. - Vital Signs Vital signs: Temp Pulse Resp BP Pulse Ox 97.1 F 55 L 12 110/62 93 06/05/19 18:11 06/05/19 18:11 06/05/19 20:01 06/05/19 20:01 06/05/19 20:01 - Laboratory Result Diagrams: 06/05/19 19:00 06/05/19 19:00 Laboratory results interpreted by me: 06/05/19 06/05/19 06/05/19 19:00 19:00 19:00 RBC 3.67 L Hgb 11.5 L Hct 33.5 L NT-Pro-B Natriuret Pep 404 H Total Protein 6.0 L - Diagnostic Test Radiology reviewed: Image reviewed, Reports reviewed - EKG Interpretation by Me EKG shows normal: Sinus rhythm Rate: Normal Rhythm: NSR - 56 [place]/QRS: No: Right axis deviation, Left axis deviation Discharge - Discharge Clinical Impression: Chest pain Qualifiers: Chest pain type: unspecified Qualified Code(s): R07.9 - Chest pain, unspecified Condition: Stable Disposition: HOME, SELF-CARE Instructions: Chest Pain of Unclear Cause ([facility]) Additional Instructions: Please call your primary care doctor first thing in the morning to arrange follow-up Forms: Return to Work Referrals: YARELI GONZALEZ MD [Primary Care Provider] - Follow up in 3-5 days
--- NOTE | 2019-06-06 07:15 | EKG REPORT ---
SEVERITY:- BORDERLINE ECG - SINUS RHYTHM LVH BY VOLTAGE : Confirmed by: Jose Guadalupe Hunter MD 06-Jun-2019 07:14:44
== END 2019-06-05 21:11 | disposition home or self-care (01) ==
LOC: ER 17:54
DX: R07.9 Chest pain, unspecified (principal); R11.2 Nausea with vomiting, unspecified; E78.00 Pure hypercholesterolemia, unspecified; I10 Essential (primary) hypertension; Z88.6 Allergy status to analgesic agent; Z87.442 Personal history of urinary calculi; Z98.84 Bariatric surgery status
CPT/HCPCS: 93005; 99285; 36415; 85025; 80053; 84484; 83880; 71046; 93010; S0119; J1170

== ENCOUNTER → 2019-08-09 | Outpatient (CLI) | payer OTHER, BC ==
[2019-08-09 12:38] LABS: A TYPE INFLUENZA AG NEGATIVE (NEGATIVE); B INFLUENZA AG NEGATIVE (NEGATIVE)
== END ==
LOC: RDC 11:25
PROVIDERS: ATTEND Registered Nurse
DX: Z20.828 Contact with and (suspected) exposure to other viral communicable diseases (principal)
CPT/HCPCS: 87070; 87635; 87804; 87880

== ENCOUNTER 2019-11-01 15:22 | Emergency (ER) | payer OTHER, BC ==
[2019-11-01] MEDS ORDERED: ONDANSETRON HCL INJ/PF 4 MG/2 ML SDV IV ONE (16:36)
[2019-11-01] MEDS ORDERED: NORMAL SALINE 1000 ML 1,000 ML IV ONE (16:36)
--- NOTE | 2019-11-01 16:36 | ER Document Report ---
ED Medical Screen (RME) - General Stated Complaint: ABDOMINAL PAIN Time Seen by Provider: 11/01/19 16:29 Primary Care Provider: YARELI GONZALEZ MD [Primary Care Provider] - Follow up as needed TRAVEL OUTSIDE OF THE [place] IN LAST 30 DAYS: No - HPI Context: Patient is a 54-year-old female who presents to the emergency department with a chief complaint of generalized abdominal pain the past week. Patient states that she has had nausea, vomiting, and diarrhea. States that she has gained 12 pounds in the past week. Has a history of cholecystectomy back in March. States that every time she eats she ends up nauseated or vomiting. Exam: Soft, moderately tender mid lower abdomen. I have greeted and performed a rapid initial assessment of this patient. A comprehensive ED assessment and evaluation of the patient, analysis of test results and completion of medical decision making process will be conducted by an additional ED providers. - Related Data Allergies/Adverse Reactions: midazolam [From Versed] Allergy (Severe, Verified 11/01/19 16:29) promethazine [From Phenergan] Allergy (Severe, Verified 11/01/19 16:29) red dye Allergy (Severe, Verified 11/01/19 16:29) morphine Allergy (Mild, Verified 11/01/19 16:29) Hives oxycodone Adverse Reaction (Mild, Verified 11/01/19 16:29) Pruritis pregabalin [From Lyrica] Adverse Reaction (Verified 11/01/19 16:29) Generalized edema Past Medical History - Past Medical History Cardiac Medical History: Reports: Hx Hypercholesterolemia, Hx Hypertension - IRBESARTIN Denies: Hx Coronary Artery Disease, Hx Heart Attack Pulmonary Medical History: Reports: Hx Pneumonia - 2017 Denies: Hx Asthma, Hx Bronchitis, Hx COPD Neurological Medical History: Reports: Hx Migraine. Denies: Hx Cerebrovascular Accident, Hx Seizures Renal/ Medical History: Reports: Hx Kidney Stones. Denies: Hx Peritoneal Dialysis Musculoskeltal Medical History: Reports Hx Arthritis - PSORIATIC ARTHRITIS Past Surgical History: Reports: Hx Breast Surgery - reduction, Hx Section, Hx Gastric Bypass Surgery, Hx Orthopedic Surgery - Status post open reduction internal fixation of a right distal femoral fritz, Other - Sphenocath - Immunizations Hx Diphtheria, Pertussis, Tetanus Vaccination: Yes Physical Exam - Vital signs Vitals: Temp Pulse Resp BP Pulse Ox 98.9 F 77 20 139/78 H 98 11/01/19 15:42 11/01/19 15:42 11/01/19 15:42 11/01/19 15:42 11/01/19 15:42 Course - Vital Signs Vital signs: Temp Pulse Resp BP Pulse Ox 98.9 F 77 20 139/78 H 98 11/01/19 15:42 11/01/19 15:42 11/01/19 15:42 11/01/19 15:42 11/01/19 15:42 Doctor's Discharge - Discharge Referrals: YARELI GONZALEZ MD [Primary Care Provider] - Follow up as needed
[2019-11-01 17:02] LABS: ABSOLUTE BASOPHILS # (AUTO) 0.1 10^3/uL (0.0-0.2); ABSOLUTE EOSINOPHILS # (AUTO) 0.1 10^3/uL (0.0-0.6); ABSOLUTE LYMPHOCYTES (AUTO) 1.3 10^3/uL (0.5-4.7); ABSOLUTE MONOCYTES (AUTO) 0.4 10^3/uL (0.1-1.4); ABSOLUTE NEUT (AUTO) 2.9 10^3/uL (1.7-8.2); BASOPHILS % (AUTO) 1.4 % (0-2); EOSINOPHILS % (AUTO) 2.3 % (0-6); HEMATOCRIT 32.9 % (36.0-47.0); HEMOGLOBIN 11.4 g/dL (12.0-15.5); LYMPHOCYTES % (AUTO) 27.1 % (13-45); MEAN CORPUSCULAR HEMOGLOBIN 30.9 pg (27.0-33.4); MEAN CORPUSCULAR HGB CONC 34.7 g/dL (32.0-36.0); MEAN CORPUSCULAR VOLUME 89 fl (80-97); MONOCYTES % (AUTO) 8.7 % (3-13); PLATELET COUNT 184 10^3/uL (150-450); RED CELL DISTRIBUTION WIDTH 13.6 % (11.5-14.0); SEGMENTED NEUTROPHILS % (AUTO) 60.5 % (42-78); TOTAL CELLS COUNTED % (AUTO) 100 %; WHITE BLOOD COUNT 4.7 10^3/uL (4.0-10.5)
[2019-11-01 17:21] LABS: APPEARANCE,URINE CLEAR; BILIRUBIN,URINE NEGATIVE (NEGATIVE); COLOR,URINE STRAW; GLUCOSE, URINE NEGATIVE (NEGATIVE); KETONES,URINE NEGATIVE (NEGATIVE); LEUKOCYTE ESTERASE,URINE NEGATIVE (NEGATIVE); NITRITE,URINE NEGATIVE (NEGATIVE); PROTEIN,URINE NEGATIVE (NEGATIVE); URINE SPECIFIC GRAVITY 1.006; UROBILINOGEN,URINE NEGATIVE mg/dL (<2.0)
[2019-11-01 18:19] LABS: ALKALINE PHOSPHATASE 86 U/L (38-126); ASPARTATE AMINO TRANSFERASE 21 U/L (14-36); BILIRUBIN,TOTAL 0.2 mg/dL (0.2-1.3); BLOOD UREA NITROGEN 14 mg/dL (7-20); CALCIUM 9.3 mg/dL (8.4-10.2); GLUCOSE 96 mg/dL (75-110); POTASSIUM 4.3 mmol/L (3.6-5.0); TOTAL PROTEIN 6.3 g/dL (6.3-8.2)
[2019-11-01 18:24] LABS: CARBON DIOXIDE 30 mmol/L (22-30); CHLORIDE 109 mmol/L (98-107)
[2019-11-01 18:45] LABS: ANION GAP 3 (5-19)
--- NOTE | 2019-11-01 20:24 | RADIOLOGY REPORT (SQ) ---
CLINICAL INDICATION: abdominal pain. . TECHNIQUE: Contrast enhanced spiral axial CT imaging was obtained of the abdomen and pelvis with multiplanar reconstructions. This exam was performed according to our departmental dose-optimization program, which includes automated exposure control, adjustment of the mA and/or kV according to patient size and/or use of iterative reconstruction techniques. Additional delayed phase imaging COMPARISON: August 17, 2018. CORRELATION: None. FINDINGS: Abdomen: The lung bases are grossly clear. The heart is enlarged but stable with coronary calcification. No evidence of pleural or pericardial fluid. The liver is of normal size contour and attenuation. The gallbladder is surgically absent. The pancreas is unremarkable. The spleen demonstrates a simple cyst measuring 1.8 cm. The adrenals are unremarkable. The kidneys appear grossly normal without evidence of urolithiasis or hydronephrosis. Simple appearing cyst There is no evidence of free air. Trace free fluid. No bulky adenopathy. Abdominal aorta is nonaneurysmal. Pelvis: The bowel is nonobstructed. The bowel is unopacified with oral contrast. Pelvic contents are unremarkable. The appendix is normal. Postsurgical change to the bowel. Postsurgical change the stomach. The intussusception present on prior examination is not identified on current. Visualized bones are unremarkable. IMPRESSION: No acute intra-abdominal process is identified. No adverse change from prior..
--- NOTE | 2019-11-01 21:16 | ER Document Report ---
ED GI/ - General Chief Complaint: Nausea/Vomiting/Diarrhea Stated Complaint: ABDOMINAL PAIN Time Seen by Provider: 11/01/19 16:29 Primary Care Provider: YARELI GONZALEZ MD [Primary Care Provider] - Follow up as needed Notes: Patient is a 54-year-old female that comes emergency department for chief complaint of abdominal pain for the past week. She states that when she eats she gets pain, nausea, has vomited occasionally, and has diarrhea when she has a bowel movement. She denies hematemesis or hematochezia. She denies fever, flank pain. She states that she has actually been gaining weight and she feels bloated in her abdomen. She has had a cholecystectomy, she has had upper endoscopy and colonoscopy over the past year with polyp removal but no concerning findings otherwise. She has had a gastric bypass. She also has psoriatic arthritis and is on methotrexate. She is not on steroids. TRAVEL OUTSIDE OF THE [place] IN LAST 30 DAYS: No - Related Data Allergies/Adverse Reactions: midazolam [From Versed] Allergy (Severe, Verified 11/01/19 16:29) promethazine [From Phenergan] Allergy (Severe, Verified 11/01/19 16:29) red dye Allergy (Severe, Verified 11/01/19 16:29) morphine Allergy (Mild, Verified 11/01/19 16:29) Hives oxycodone Adverse Reaction (Mild, Verified 11/01/19 16:29) Pruritis pregabalin [From Lyrica] Adverse Reaction (Verified 11/01/19 16:29) Generalized edema Home Medications: humiria not since Past Medical History - General Information source: Patient - Social History Smoking Status: Former Smoker Chew tobacco use (# tins/day): No Frequency of alcohol use: None Drug Abuse: None Lives with: Family Family History: Reviewed & Not Pertinent Patient has homicidal ideation: No - Past Medical History Cardiac Medical History: Reports: Hx Hypercholesterolemia, Hx Hypertension - IRBESARTIN Denies: Hx Coronary Artery Disease, Hx Heart Attack Pulmonary Medical History: Reports: Hx Pneumonia - 2017 Denies: Hx Asthma, Hx Bronchitis, Hx COPD Neurological Medical History: Reports: Hx Migraine. Denies: Hx Cerebrovascular Accident, Hx Seizures Renal/ Medical History: Reports: Hx Kidney Stones. Denies: Hx Peritoneal Dialysis Musculoskeletal Medical History: Reports Hx Arthritis - PSORIATIC ARTHRITIS Past Surgical History: Reports: Hx Breast Surgery - reduction, Hx Section, Hx Gastric Bypass Surgery, Hx Orthopedic Surgery - Status post open reduction internal fixation of a right distal femoral fritz, Other - Sphenocath - Immunizations Hx Diphtheria, Pertussis, Tetanus Vaccination: Yes Review of Systems - Review of Systems Constitutional: No symptoms reported EENT: No symptoms reported Cardiovascular: No symptoms reported Respiratory: No symptoms reported Gastrointestinal: See HPI Genitourinary: No symptoms reported Female Genitourinary: No symptoms reported Musculoskeletal: No symptoms reported Skin: No symptoms reported Hematologic/Lymphatic: No symptoms reported Neurological/Psychological: No symptoms reported Physical Exam - Vital signs Vitals: Temp Pulse Resp BP Pulse Ox 98.9 F 77 20 139/78 H 98 11/01/19 15:42 11/01/19 15:42 11/01/19 15:42 11/01/19 15:42 11/01/19 15:42 - Notes Notes: GENERAL: Alert, interacts well. No acute distress. HEAD: Normocephalic, atraumatic. EYES: Pupils equal, round, and reactive to light. Extraocular movements intact. ENT: Oral mucosa moist, tongue midline. Oropharynx unremarkable. Airway patent. NECK: Full range of motion. Supple. Trachea midline. No lymphadenopathy. LUNGS: Clear to auscultation bilaterally, no wheezes, rales, or rhonchi. No respiratory distress. Non-tender chest wall. HEART: Regular rate and rhythm. No murmur ABDOMEN: Generalized upper and lower abdominal tenderness, nonspecific, no guarding, bowel sounds present. No overt distention noted. GENITOURINARY: Deferred EXTREMITIES: Moves all 4 extremities spontaneously. No edema, normal radial and dorsalis pedis pulses bilaterally. No cyanosis. BACK: no cervical, thoracic, lumbar midline tenderness. No saddle anesthesia, normal distal neurovascular exam. Moves all extremities in full range of motion. NEUROLOGICAL: Alert and oriented x3. Normal speech. Cranial nerves II through XII grossly intact. Strength 5/5 in all extremities. PSYCH: Normal affect, normal mood. SKIN: Warm, dry, normal turgor. No rashes or lesions noted. Course - Re-evaluation Re-evalutation: Patient is quite well-appearing on my exam. She does have some generalized uppe r and generalized lower abdominal pain but there is no guarding or rigidity. There is no overt distention. Vital signs unremarkable. CBC, chemistry, urinalysis unremarkable. I did review CAT scan from triage and this was also unremarkable with no acute findings. Patient with ongoing and intermittent symptoms. She does have a history of gastric bypass and she is not on any antacid therapy, she also has a history of IBS. I have a low suspicion of acute abdomen based on her evaluation. Patient states she feels a lot better now than before. She is tolerating p.o. without difficulty. Patient has excellent follow-up. Patient will be started on Bentyl, antacid therapy, discussed follow-up instructions, discussed return precautions. Patient states understanding and agreement. Stable and well-appearing at time of discharge. - Vital Signs Vital signs: Temp Pulse Resp BP Pulse Ox 98.6 F 64 14 150/61 H 100 11/01/19 21:56 11/01/19 21:56 11/01/19 21:56 11/01/19 21:56 11/01/19 21:56 - Laboratory Result Diagrams: 11/01/19 16:45 11/01/19 17:50 Laboratory results interpreted by me: 11/01/19 11/01/19 16:45 17:50 RBC 3.70 L Hgb 11.4 L Hct 32.9 L Chloride 109 H Anion Gap 3 L Lipase 366.3 H Discharge - Discharge Clinical Impression: Abdominal pain Qualifiers: Abdominal location: generalized Qualified Code(s): R10.84 - Generalized abdominal pain Condition: Stable Disposition: HOME, SELF-CARE Additional Instructions: Your laboratory work-up and CAT scan are reassuring and do not show any concerning findings. I suspect her symptoms are from inflammation of the gastrointestinal tract and combined with your irritable bowel. I recommend the Carafate, famotidine, and Bentyl as prescribed. Start with bland food, avoid caffeine, spicy food, alcohol, smoking, NSAIDs. Follow-up with your provider for additional management. Return if you worsen including black stools, uncontrolled vomiting, vomiting blood, severe worsening pain, fever, or any other concerning symptoms. Prescriptions: Dicyclomine HCl [Bentyl 20 mg Tablet] 20 mg PO QID PRN #20 tablet PRN Reason: Sucralfate [Carafate 1 gm Tablet] 1 gm PO QID #20 tablet Famotidine [Pepcid 20 mg Tablet] 20 mg PO BID #14 tablet Referrals: YARELI GONZALEZ MD [Primary Care Provider] - Follow up as needed
[2019-11-01] MEDS ORDERED: DICYCLOMINE HCL 20 MG TABLET PO ONE (21:22)
[2019-11-01] MEDS ORDERED: SUCRALFATE 1 GM TABLET PO ONE (21:22)
[2019-11-01] MEDS ORDERED: FAMOTIDINE 20 MG TABLET PO ONE (21:22)
[2019-11-01 21:57] VITALS: BP 150/61
== END 2019-11-01 21:57 | disposition home or self-care (01) ==
LOC: ER 15:22
DX: R10.84 Generalized abdominal pain (principal); R11.2 Nausea with vomiting, unspecified; R19.7 Diarrhea, unspecified; Z90.49 Acquired absence of other specified parts of digestive tract; Z98.84 Bariatric surgery status; Z88.8 Allergy status to other drugs, medicaments and biological substances; Z79.899 Other long term (current) drug therapy; Z87.891 Personal history of nicotine dependence; I10 Essential (primary) hypertension; H44.9 Unspecified disorder of globe; J44.9 Chronic obstructive pulmonary disease, unspecified
CPT/HCPCS: 99284; 36415; 83690; 85025; 81025; 80053; 81001; 74177; J3490

== ENCOUNTER 2019-11-15 17:33 | Emergency (ER) | payer OTHER, BC ==
--- NOTE | 2019-11-15 19:37 | ER Document Report ---
HPI - HPI Time Seen by Provider: 11/15/19 19:29 Pain Level: 3 Notes: CHIEF COMPLAINT: Left knee injury today HPI: 54-year-old female with history of multiple injuries to bilateral knees states that she reinjured the left knee and ankle today getting out of her truck. Patient slipped off the step and landed with her foot on the ground jarring her left leg. States she has pain over the lateral ankle all the way up to the knee and when she twists the knee inward has increasing sharp pain to the knee. Patient follows with Dr. Anand orthopedics. Denies numbness or tingling has been able to weight-bear ROS: See HPI - all other systems were reviewed and are otherwise negative Constitutional: no fever Integumentary: no rash Allergy: no hives Musculoskeletal: + extremity pain or swelling Neurological: no numbness/tingling, no weakness MEDICATIONS: I agree with the patient medications as charted by the RN. ALLERGIES: I agree with the allergies as charted by the RN. PAST MEDICAL HISTORY/PAST SURGICAL HISTORY: Reviewed and agree as charted by RN. SOCIAL HISTORY: Reviewed and agree as charted by RN. FAMILY HISTORY: No significant familial comorbid conditions directly related to patient complaint EXAM: Reviewed vital signs as charted by RN. CONSTITUTIONAL: Alert and oriented and responds appropriately to questions. Well-appearing; well-nourished HEAD: Normocephalic; atraumatic EYES: Conjunctivae clear, sclerae non-icteric ENT: normal nose; no rhinorrhea; moist mucous membranes NECK: Supple without meningismus CARD: symmetric distal pulses RESP: Normal chest excursion without splinting or tachypnea ABD/GI: non-distended BACK: The back appears normal EXT: Normal ROM in all joints; no visible edema to the left lower leg no visible bruising. There is no tenderness on palpation over the left foot. There is mild tenderness over the medial lateral malleolus of the left ankle. There is mild tenderness over the lower aspect of the left knee. She is able to fully straighten the left leg at the knee. There is no visible effusion. No laxity on varus or valgus rotation of the left knee. SKIN: Normal color for age and race; warm; dry; good turgor; no acute lesions noted NEURO: Moves all extremities equally; Motor and sensory function intact PSYCH: The patient's mood and manner are appropriate. Grooming and personal hygiene are appropriate. MDM: 54-year-old female with injury to the left lower leg. Is on chronic pain management for multiple previous injuries. Will obtain x-ray for fracture, she has an orthopedic for follow-up - REPRODUCTIVE Reproductive: DENIES: : Past Medical History - Social History Smoking Status: Never Smoker Chew tobacco use (# tins/day): No Frequency of alcohol use: None Drug Abuse: None Family History: Reviewed & Not Pertinent - Past Medical History Cardiac Medical History: Reports: Hx Hypercholesterolemia, Hx Hypertension - IRBESARTIN Denies: Hx Coronary Artery Disease, Hx Heart Attack Pulmonary Medical History: Reports: Hx Pneumonia - 2017 Denies: Hx Asthma, Hx Bronchitis, Hx COPD Neurological Medical History: Reports: Hx Migraine. Denies: Hx Cerebrovascular Accident, Hx Seizures Renal/ Medical History: Reports: Hx Kidney Stones. Denies: Hx Peritoneal Dialysis Musculoskeletal Medical History: Reports Hx Arthritis - PSORIATIC ARTHRITIS Past Surgical History: Reports: Hx Breast Surgery - reduction, Hx Section, Hx Gastric Bypass Surgery, Hx Orthopedic Surgery - Status post open reduction internal fixation of a right distal femoral fritz, Other - Sphenocath - Immunizations Hx Diphtheria, Pertussis, Tetanus Vaccination: Yes Vertical Provider Document - INFECTION CONTROL TRAVEL OUTSIDE OF THE [place] IN LAST 30 DAYS: No Course - Re-evaluation Re-evalutation: 11/15/19 19:45 I do not visualize a fracture on my review of the x-ray. Awaiting official read but if negative anticipate discharge home to follow-up with her orthopedist - Vital Signs Vital signs: Temp Pulse Resp BP Pulse Ox 98.5 F 57 L 16 156/71 H 96 11/15/19 19:24 11/15/19 18:18 11/15/19 18:18 11/15/19 18:18 11/15/19 18:18 Discharge - Discharge Clinical Impression: Leg pain, left Condition: Stable Disposition: HOME, SELF-CARE Additional Instructions: X-ray does not show evidence of a definitive fracture. Continue your previous pain management and follow-up with Dr. Anand for further evaluation and treatment Referrals: YARELI GONZALEZ MD [Primary Care Provider] - Follow up as needed NACHO ANAND JR, [ACTIVE PROVISIONAL STAFF] - Follow up as needed
--- NOTE | 2019-11-15 20:17 | RADIOLOGY REPORT (SQ) ---
CLINICAL INDICATION: injury. Pain post fall. TECHNIQUE: 4 view(s) were obtained of the left leg. COMPARISON: None. FINDINGS: No acute displaced fracture is identified of the leg. Alignment appears anatomic. Tripartite total knee replacement, in good position.. Surrounding soft tissues are unremarkable. If knee or ankle are clinically in suspicion, then dedicated radiography is advised. IMPRESSION: No evidence of acute bony injury to the leg.
[2019-11-15 20:58] VITALS: BP 179/70
== END 2019-11-15 21:09 | disposition home or self-care (01) ==
LOC: ER 17:33
DX: S89.92XA Unspecified injury of left lower leg, initial encounter (principal); X58.XXXA Exposure to other specified factors, initial encounter; Y93.89 Activity, other specified; L40.50 Arthropathic psoriasis, unspecified; I10 Essential (primary) hypertension; E78.00 Pure hypercholesterolemia, unspecified; G43.909 Migraine, unspecified, not intractable, without status migrainosus; Z79.891 Long term (current) use of opiate analgesic; Z79.899 Other long term (current) drug therapy; Z79.84 Long term (current) use of oral hypoglycemic drugs
CPT/HCPCS: 99283

== ENCOUNTER 2019-12-24 13:32 | Emergency (ER) | payer OTHER, BC ==
[2019-12-24] MEDS ORDERED: DIPH/PERTUSS(ACELL)/TETANUS VAC/PF 0.5 ML SYR (>=10YO) IM ONE (14:11)
[2019-12-24] MEDS ORDERED: CEPHALEXIN 500 MG CAPSULE PO ONE (14:11)
--- NOTE | 2019-12-24 14:14 | ER Document Report ---
ED Extremity Problem, Upper - General Chief Complaint: Arm Injury Stated Complaint: LEFT ARM INJURY Time Seen by Provider: 12/24/19 14:10 Primary Care Provider: YARELI GONZALEZ MD [Primary Care Provider] - Follow up in 3-5 days Mode of Arrival: Ambulatory Information source: Patient Notes: 54-year-old female presented to ED after she pulled a piece of her out of her arm. They were putting up field wire to keep the dog from jumping when the wire rolled back and stuck in her arm. She was able to pull the metal out but it need x-ray to ensure there is no particles left in her arm. She states she is not sure when her last tetanus immunization was. We will give her 1 today. Was started on Keflex. If there is no foreign bodies left in her arm will discharge her home otherwise she would need irrigation. TRAVEL OUTSIDE OF THE [place] IN LAST 30 DAYS: No - HPI Patient complains to provider of: Left, Elbow Onset: Just prior to arrival Recent injury: Yes Where: Home, Outdoors Quality of pain: Pressure Severity of pain: Moderate Pain Level: 3 Context: Other - Puncture wound Associated symptoms: None Exacerbated by: Movement, Exertion Relieved by: Rest, Positioning Similar symptoms previously: No Recently seen / treated by doctor: No - Related Data Allergies/Adverse Reactions: midazolam [From Versed] Allergy (Severe, Verified 11/15/19 19:28) promethazine [From Phenergan] Allergy (Severe, Verified 11/15/19 19:28) red dye Allergy (Severe, Verified 11/15/19 19:28) morphine Allergy (Mild, Verified 11/15/19 19:28) Hives oxycodone Adverse Reaction (Mild, Verified 11/15/19 19:28) Pruritis pregabalin [From Lyrica] Adverse Reaction (Verified 11/15/19 19:28) Generalized edema Past Medical History - General Information source: Patient - Social History Smoking Status: Never Smoker Frequency of alcohol use: None Drug Abuse: None Lives with: Family Family History: Reviewed & Not Pertinent Patient has suicidal ideation: No Patient has homicidal ideation: No - Past Medical History Cardiac Medical History: Reports: Hx Hypercholesterolemia, Hx Hypertension - IRBESARTIN Pulmonary Medical History: Reports: Hx Pneumonia - 2017 EENT Medical History: Reports: None Neurological Medical History: Reports: Hx Migraine Endocrine Medical History: Reports: None Renal/ Medical History: Reports: Hx Kidney Stones Malignancy Medical History: Reports: None GI Medical History: Reports: None Musculoskeletal Medical History: Reports Hx Arthritis - PSORIATIC ARTHRITIS Skin Medical History: Reports None Psychiatric Medical History: Reports: None Traumatic Medical History: Reports: None Infectious Medical History: Reports: None Past Surgical History: Reports: Hx Breast Surgery - reduction, Hx Section, Hx Gastric Bypass Surgery, Hx Orthopedic Surgery - Status post open reduction internal fixation of a right distal femoral fritz, Other - Sphenocath - Immunizations Immunizations up to date: Yes Hx Diphtheria, Pertussis, Tetanus Vaccination: Yes - 12/24/2019 Review of Systems - Review of Systems Constitutional: No symptoms reported EENT: No symptoms reported Cardiovascular: No symptoms reported Respiratory: No symptoms reported Gastrointestinal: No symptoms reported Genitourinary: No symptoms reported Female Genitourinary: No symptoms reported Musculoskeletal: No symptoms reported Skin: Other - Puncture wound left arm Hematologic/Lymphatic: No symptoms reported Neurological/Psychological: No symptoms reported -: Yes All other systems reviewed and negative Physical Exam - Vital signs Vitals: Temp Pulse Resp BP Pulse Ox 98.9 F 69 18 133/63 H 100 12/24/19 13:54 12/24/19 13:54 12/24/19 13:54 12/24/19 13:54 12/24/19 13:54 Interpretation: Normal - General General appearance: Appears well, Alert - HEENT Head: Normocephalic, Atraumatic Eyes: Normal Pupils: PERRL - Respiratory Respiratory status: No respiratory distress Chest status: Nontender Breath sounds: Normal Chest palpation: Normal - Cardiovascular Rhythm: Regular Heart sounds: Normal auscultation Murmur: No - Abdominal Inspection: Normal Distension: No distension Bowel sounds: Normal Tenderness: Nontender Organomegaly: No organomegaly - Back Back: Normal, Nontender - Extremities General upper extremity: Normal ROM, Normal temperature General lower extremity: Normal inspection, Nontender, Normal color, Normal ROM, Normal temperature, Normal weight bearing. No: Cynthia's sign Elbow: Tender, Other - Puncture wound just above the left elbow. No: Limited ROM - Neurological Neuro grossly intact: Yes Cognition: Normal Orientation: AAOx4 [place] Coma Scale Eye Opening: Spontaneous Gillian Coma Scale Verbal: Oriented [place] Coma Scale Motor: Obeys Commands [place] Coma Scale Total: 15 Speech: Normal Motor strength normal: LUE, RUE, LLE, RLE Sensory: Normal - Psychological Associated symptoms: Normal affect, Normal mood - Skin Skin Temperature: Warm Skin Moisture: Dry Skin Color: Normal Course - Re-evaluation Re-evalutation: 12/24/19 22:53 Asked x-ray with patient. Patient was given instructions on cleaning the wound with soap and water using Epson salt and taking her antibiotics as prescribed. Patient was agreeable with this treatment plan and she was discharged home. - Vital Signs Vital signs: Temp Pulse Resp BP Pulse Ox 98.3 F 61 18 141/93 H 97 12/24/19 15:19 12/24/19 15:19 12/24/19 15:19 12/24/19 15:19 12/24/19 15:19 - Diagnostic Test Radiology reviewed: Image reviewed, Reports reviewed Discharge - Discharge Clinical Impression: Puncture wound of left upper arm Qualifiers: Encounter type: initial encounter Qualified Code(s): S41.132A - Puncture wound without foreign body of left upper arm, initial encounter Condition: Stable Disposition: HOME, SELF-CARE Additional Instructions: Puncture Wound You have a puncture wound. Because these wounds often penetrate deeply beneath the skin, you must observe them carefully for complications. The wound has been examined for retained foreign material and for damage to tendons and nerves. The area should be rested and elevated for 24 hours. Then you can use the injured part -- if moving it is painfree. Punctures of the hand or foot may require splinting or crutches. The dressing should be changed daily until the wound is healed. Watch for signs of infection. Call the doctor immediately if redness, swelling, warmth, increasing pain, or wound drainage occur. If you develop numbness, persistent bleeding, or inability to move the injured area, please return for prompt re-evaluation. SOAP CLEANSING: Gently wash the wound daily using a mild soap (like Ivory, Phisoderm, Neutrogena). Use warm water, rubbing gently until all debris, ooze, and crusting have been washed from the wound. Allow to dry briefly (about 10 minutes) after cleaning. Repeat this cleansing at least three times a day for the first two days and then once or twice a day. ANTIBIOTIC OINTMENT PROTECTION: Your wounds are such that dressing them is not practical or optional. After cleansing, you should apply a thin coating of antibiotic ointment (Bacitracin, not Neosporin) to the wounds at least three times daily. This lessens infection risk, and may decrease the amount of scarring. Use a q-tip or dull butter knife, not your finger, to apply this ointment. Any debris or ooze which builds up in the ointment should be gently rubbed off with a sterile gauze pad. Harder crusting may need to be gently scrubbed off with a clean wash cloth with soap and warm water, perhaps applying a warm, wet wash cloth to the wound for ten minutes first. Development of redness, severe itching, or blistering may mean allergy to the ointment. See the doctor. TETANUS IMMUNIZATION GIVEN: You have been given an immunization against tetanus. Please record this in your records. In general, a booster is needed only once every 10 years. The tetanus shot protects against tetanus or "lockjaw," which is a complication of certain wound infections (the tetanus shot cannot protect against the actual infection). The immunization site may become warm and red due to local reaction. If this occurs, apply warm compresses and take aspirin or ibuprofen to reduce inflammation and discomfort. Return for evaluation if the reaction becomes severe. Cephalexin The antibiotic you've been prescribed is a member of the cephalosporin class. This type of antibiotic covers a wide variety of infections, including those of the skin, lungs, and urinary tract. It's useful for staph infections. This antibiotic is slightly similar to the penicillin family. In rare cases, a person who is allergic to penicillin will also be allergic to this medication. If you have had a severe allergic reaction to penicillin, and have not taken this antibiotic since that time, notify your doctor. Antibiotics which cover many germs ("broad spectrum" antibiotics) are more likely to cause diarrhea or "yeast" infections. Women prone to vaginal yeast problems may suffer an attack after taking this antibiotic. In infants, oral thrush (white spots "stuck" on the cheek) or yeast diaper rash may result. See your doctor if these problems occur. Call at once if you develop itching, hives, shortness of breath, or lightheadedness. FOLLOW-UP CARE: Please return in ___3__ days for an infection check and dressing change. If you have been referred to another physician for follow-up care, call that physicians office for an appointment as you were instructed. If you experience a significant change in your laceration, or if you are concerned there may be an infection (swelling, redness, drainage, increasing tenderness, red streaks, tender lumps in the armpit or groin above the laceration, or fever), return to the Emergency Department immediately re-evaluation. Forms: Elevated Blood Pressure Referrals: YARELI GONZALEZ MD [Primary Care Provider] - Follow up in 3-5 days
--- NOTE | 2019-12-24 15:03 | RADIOLOGY REPORT (SQ) ---
EXAM DESCRIPTION: ELBOW LEFT OVER 2 VIEWS IMAGES COMPLETED DATE/TIME: 12/24/2019 2:53 pm REASON FOR STUDY: Foreign body pulled out of arm COMPARISON: None. NUMBER OF VIEWS: Four views. TECHNIQUE: AP, lateral, and both oblique radiographic images acquired of the left elbow. LIMITATIONS: None. FINDINGS: MINERALIZATION: Normal. BONES: No acute fracture or dislocation. No worrisome bone lesions. JOINT: No effusion. SOFT TISSUES: No foreign body. OTHER: No other significant finding. IMPRESSION: NEGATIVE STUDY OF THE LEFT ELBOW. NO RADIOGRAPHIC EVIDENCE OF ACUTE INJURY. TECHNICAL DOCUMENTATION: JOB ID: [id number] 2010 [employer]- All Rights Reserved Reading location - IP/workstation name: [email or web address]
[2019-12-24 15:19] VITALS: BP 141/93
== END 2019-12-24 15:19 | disposition home or self-care (01) ==
LOC: ER 13:32
DX: S41.132A Puncture wound without foreign body of left upper arm, initial encounter (principal); W26.8XXA Contact with other sharp object(s), not elsewhere classified, initial encounter; Z88.8 Allergy status to other drugs, medicaments and biological substances; I10 Essential (primary) hypertension
CPT/HCPCS: 90471; 90715; 99283

== ENCOUNTER 2020-01-23 11:03 | Emergency (ER) | payer OTHER, BC ==
[2020-01-23 11:09] VITALS: BP 165/83
[2020-01-23] MEDS ORDERED: DEXAMETHASONE SOD PHOS INJ 10 MG/1 ML VIAL IV ONE (11:34)
[2020-01-23] MEDS ORDERED: DEXAMETHASONE SOD PHOS INJ 10 MG/1 ML VIAL IM ONE (11:41)
--- NOTE | 2020-01-23 11:41 | ER Document Report ---
HPI - HPI Time Seen by Provider: 01/23/20 11:29 Pain Level: 2 Notes: 54-year-old female presents to the ED today for follow-up of a rash that started a week and half ago when she was pulling weeds, she believes she has poison summer. Has tried [id number] Benadryl and calamine lotion without full relief. Reports rashes on her right arm and right leg feels like it spreading. Patient reports she did have dental work done 6 days ago, had her teeth extracted and b one sanded down by her dentist, she is currently on antibiotics. Patient states she is had the rash prior to her dental work. Feels like her body is just under too much stress right now and she does need a cortisone shot. Denies fevers, chills, chest pain,palpitations, shortness of breath, dyspnea, nausea, vomiting, diarrhea, abdominal pain, hematuria,blurred vision, double vision, loss of vision, speech changes, LH, dizziness, syncope, headaches, wheezing, ST, URI, neck pain, weakness, bowel or bladder dysfunction, saddle anesthesia, numbness or tingling in bilateral upper or lower extremities equally, muscle paralysis, weakness in bilateral upper or lower extremities equally or rash. Denies IV drug use. MEDICATIONS: I agree with the patient medications as charted by the RN. ALLERGIES: I agree with the allergies as charted by the RN. PAST MEDICAL HISTORY/PAST SURGICAL HISTORY: Reviewed and agree as charted by RN. SOCIAL HISTORY: Reviewed and agree as charted by RN. FAMILY HISTORY: No significant familial comorbid conditions directly related to patient complaint EXAM: Reviewed vital signs as charted by RN. REVIEW OF SYSTEMS:reviewed vital signs by RN CONSTITUTIONAL : Denies fever, chills, or sweats. Denies recent illness. EENT: Denies eye, ear, throat, or mouth pain or symptoms. Denies nasal or sinus congestion or discharge. Denies throat, tongue, or mouth swelling or difficulty swallowing. CARDIOVASCULAR: Denies chest pain. Denies palpitations or racing or irregular heart beat. Denies ankle edema. RESPIRATORY: Denies cough, cold, or chest congestion. Denies shortness of breath, difficulty breathing, or wheezing. GASTROINTESTINAL: Denies abdominal pain or distention. Denies nausea, vomiting, or diarrhea. Denies blood in vomitus, stools, or per rectum. Denies black, tarry stools. Denies constipation. GENITOURINARY: Denies difficulty urinating, painful urination, burning, frequency, blood in urine, or discharge. FEMALE GENITOURINARY: Denies vaginal bleeding, heavy or abnormal periods, irregular periods. Denies vaginal discharge or odor. MUSCULOSKELETAL: Denies back or neck pain or stiffness. Denies joint pain or swelling. SKIN: reports rash. denies lesions or sores. HEMATOLOGIC : Denies easy bruising or bleeding. LYMPHATIC: Denies swollen, enlarged glands. NEUROLOGICAL: Denies confusion or altered mental status. Denies passing out or loss of consciousness. Denies dizziness or lightheadedness. Denies headache. Denies weakness or paralysis or loss of use of either side. Denies problems with gait or speech. Denies sensory loss, numbness, or tingling. Denies seizures. PSYCHIATRIC: Denies anxiety or stress. Denies depression, suicidal ideation, or homicidal ideation. ALL OTHER SYSTEMS REVIEWED AND NEGATIVE. PHYSICAL EXAMINATION: GENERAL: Well-appearing, well-nourished and in no acute distress. HEAD: Atraumatic, normocephalic. EYES: Pupils equal round and reactive to light, extraocular movements intact, conjunctiva are normal. ENT: Nares patent, oropharynx clear without exudates. Moist mucous membranes. Lower teeth extracted, scant swelling. uvula midline. NECK: Normal range of motion, supple without lymphadenopathy LUNGS: Breath sounds clear to auscultation bilaterally and equal. No wheezes rales or rhonchi. HEART: Regular rate and rhythm without murmurs ABDOMEN: Soft, nontender, nondistended abdomen. No guarding, no rebound. No masses appreciated. Female : deferred Musculoskeletal: Normal range of motion, no pitting or edema. No cyanosis. NEUROLOGICAL: Cranial nerves grossly intact. Normal speech, normal gait. Normal sensory, motor exams PSYCH: Normal mood, normal affect. SKIN: Warm, Dry, normal turgor, no rashes or lesions noted. maculopapular rash on R forearm and left leg rash approx in a leaf like pattern. Dictation was performed using [employer] voice recognition software - REPRODUCTIVE Reproductive: DENIES: : Past Medical History - General Information source: Patient - Social History Smoking Status: Unknown if Ever Smoked Family History: Reviewed & Not Pertinent - Past Medical History Cardiac Medical History: Reports: Hx Hypercholesterolemia, Hx Hypertension - IRBESARTIN Denies: Hx Coronary Artery Disease, Hx Heart Attack Pulmonary Medical History: Reports: Hx Pneumonia - 2017 Denies: Hx Asthma, Hx Bronchitis, Hx COPD Neurological Medical History: Reports: Hx Migraine. Denies: Hx Cerebrovascular Accident, Hx Seizures Renal/ Medical History: Reports: Hx Kidney Stones. Denies: Hx Peritoneal Dialysis Musculoskeletal Medical History: Reports Hx Arthritis - PSORIATIC ARTHRITIS Past Surgical History: Reports: Hx Breast Surgery - reduction, Hx Section, Hx Gastric Bypass Surgery, Hx Orthopedic Surgery - Status post open reduction internal fixation of a right distal femoral fritz, Other - Sphenocath - Immunizations Immunizations up to date: Yes Hx Diphtheria, Pertussis, Tetanus Vaccination: Yes - 12/24/2019 Vertical Provider Document - CONSTITUTIONAL Agree With Documented VS: Yes Exam Limitations: No Limitations General Appearance: WD/WN - INFECTION CONTROL TRAVEL OUTSIDE OF THE [place] IN LAST 30 DAYS: No Course - Re-evaluation Re-evalutation: 01/23/20 11:52 afebrile, patient slightly hypertensive but she has a history of hypertension asymptomatic. Patient given 10 mg of dexamethasone IM. Advised to continue taking [id number] Benadryl and calamine lotion. Will prescribe her prescription cortisone cream to put on her rash, advised to not put anywhere near her face. No signs and symptoms of cellulitis. Follow-up with primary care provider as needed. Continue taking oral Banex for your dental extractions. Follow-up with a dentist as already scheduled. After performing a Medical Screening Examination, I estimate there is LOW risk for any life threatening rash. At this time the patient looks extremely well and there are no signs of systemic infection, however this may change at any time and the rash may change. I have reevaluated this patient multiple times and no significant life threatening changes are noted. The patient and I have discussed the diagnosis and risks, and we agree with discharging home with close follow-up with the understanding that symptoms and presentations can change. We also discussed returning to the Emergency Department immediately if new or worsening symptoms occur. We have discussed the symptoms which are most concerning (e.g., changing or worsening pain, fever, numbness, weakness, cool or painful digits) that necessitate immediate return. - Vital Signs Vital signs: Temp Pulse Resp BP Pulse Ox 98.7 F 59 L 16 165/83 H 97 01/23/20 11:24 01/23/20 11:07 01/23/20 11:07 01/23/20 11:07 01/23/20 11:07 Discharge - Discharge Clinical Impression: Poison summer dermatitis, dental extraction Condition: Stable Disposition: HOME, SELF-CARE Instructions: Corticosteroid Medication ([facility]), Dentist, Dental Injury ([facility]), Poison Summer ([facility]), Topical Steroid Cream or Ointment ([facility]) Additional Instructions: Poison Summer Poison summer and poison oak can cause an itchy rash. This is called contact dermatitis. It's an allergy to an oil in the plant's leaves. The oil can be spread from clothing to skin, from pets to humans, or from one spot on the body to another. Washing thoroughly with soap immediately after exposure can prevent the rash. (Clothing should be washed as well.) If the oil is not removed, an itchy rash develops a few days after the exposure. Blisters may develop. Two to three weeks may be required for healing. Generally, treatment consists of: (1) an immediate thorough washing with soap to remove the oil, (2) application of a cortisone cream, and (3) antihistamines for itching. If the reaction is particularly severe, oral cortisone medicine may be required. If there are oozing areas, these can be soaked in epsom salts or Charlotte's solution. Call the doctor if the rash worsens despite treatment, or if signs of infection occur such as spreading redness, red streaks, swollen glands, swelling, or fever. Return immediately for any new or worsening symptoms. Follow up with primary care provider, call tomorrow to make followup appointment. Prescriptions: Triamcinolone Acetonide [Aristocort 0.1% Cream] 1 applic TP BID #1 tub Referrals: YARELI GONZALEZ MD [Primary Care Provider] - Follow up as needed
== END 2020-01-23 11:51 | disposition home or self-care (01) ==
LOC: ER 11:03
DX: L23.7 Allergic contact dermatitis due to plants, except food (principal); E78.00 Pure hypercholesterolemia, unspecified; I10 Essential (primary) hypertension; L40.50 Arthropathic psoriasis, unspecified; Z79.899 Other long term (current) drug therapy; Z79.1 Long term (current) use of non-steroidal anti-inflammatories (NSAID); Z79.84 Long term (current) use of oral hypoglycemic drugs; K08.409 Partial loss of teeth, unspecified cause, unspecified class
CPT/HCPCS: 99284; 96372; J1100

== ENCOUNTER 2020-04-03 09:05 | Emergency (ER) | payer OTHER, BC ==
[2020-04-03] MEDS ORDERED: BUPIVACAINE HCL 0.25% /EPINEPHRINE INJ/PF 30 ML SDV INJ ONE (11:30)
[2020-04-03] MEDS ORDERED: LIDOCAINE 1% INJ-PF (10 MG/ML) 30 ML SDV INJ ONE (11:35)
[2020-04-03 13:02] LABS: ABSOLUTE BASOPHILS # (AUTO) 0.1 10^3/uL (0.0-0.2); ABSOLUTE EOSINOPHILS # (AUTO) 0.1 10^3/uL (0.0-0.6); ABSOLUTE LYMPHOCYTES (AUTO) 1.1 10^3/uL (0.5-4.7); ABSOLUTE MONOCYTES (AUTO) 0.4 10^3/uL (0.1-1.4); ABSOLUTE NEUT (AUTO) 4.1 10^3/uL (1.7-8.2); EOSINOPHILS % (AUTO) 1.8 % (0-6); HEMATOCRIT 32.4 % (36.0-47.0); HEMOGLOBIN 11.2 g/dL (12.0-15.5); LYMPHOCYTES % (AUTO) 18.9 % (13-45); MEAN CORPUSCULAR HEMOGLOBIN 30.6 pg (27.0-33.4); MEAN CORPUSCULAR HGB CONC 34.5 g/dL (32.0-36.0); MEAN CORPUSCULAR VOLUME 89 fl (80-97); MONOCYTES % (AUTO) 7.3 % (3-13); PLATELET COUNT 184 10^3/uL (150-450); RED BLOOD COUNT 3.66 10^6/uL (3.72-5.28); RED CELL DISTRIBUTION WIDTH 13.7 % (11.5-14.0); TOTAL CELLS COUNTED % (AUTO) 100 %; WHITE BLOOD COUNT 5.8 10^3/uL (4.0-10.5)
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
[2020-04-03 13:20] LABS: ANION GAP 6 (5-19); BLOOD UREA NITROGEN 13 mg/dL (7-20); CALCIUM 9.3 mg/dL (8.4-10.2); CARBON DIOXIDE 28 mmol/L (22-30); CHLORIDE 105 mmol/L (98-107); GLUCOSE 93 mg/dL (75-110); POTASSIUM 4.4 mmol/L (3.6-5.0)
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
[2020-04-03 16:40] VITALS: BP 147/80
== END 2020-04-03 16:40 | disposition home or self-care (01) ==
LOC: ER 09:05
DX: S01.112A Laceration without foreign body of left eyelid and periocular area, initial encounter (principal); S16.1XXA Strain of muscle, fascia and tendon at neck level, initial encounter; S20.212A Contusion of left front wall of thorax, initial encounter; R51.9 Headache, unspecified; V49.40XA Driver injured in collision with unspecified motor vehicles in traffic accident, initial encounter; M47.812 Spondylosis without myelopathy or radiculopathy, cervical region; I71.2 Thoracic aortic aneurysm, without rupture; I10 Essential (primary) hypertension; Z88.4 Allergy status to anesthetic agent; Z88.8 Allergy status to other drugs, medicaments and biological substances; Z91.048 Other nonmedicinal substance allergy status; Z88.6 Allergy status to analgesic agent; Z88.5 Allergy status to narcotic agent
CPT/HCPCS: 36415; 70450; 70486; 71275; 72125; 80048; 85025; 99284

== ENCOUNTER 2020-04-09 07:57 | Emergency (ER) | payer OTHER, BC ==
[2020-04-09] MEDS ORDERED: KETOROLAC TROMETHAMINE 60 MG/2 ML SDV IM ONE (08:33)
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
[2020-04-09 10:36] VITALS: BP 121/64
== END 2020-04-09 10:20 | disposition home or self-care (01) ==
LOC: ER 07:57
DX: S01.112D Laceration without foreign body of left eyelid and periocular area, subsequent encounter (principal); S70.01XD Contusion of right hip, subsequent encounter; V89.2XXD Person injured in unspecified motor-vehicle accident, traffic, subsequent encounter; E78.00 Pure hypercholesterolemia, unspecified; I10 Essential (primary) hypertension; Z87.442 Personal history of urinary calculi
CPT/HCPCS: 99284; 96372; 73502; J1885

== ENCOUNTER 2020-05-29 18:15 | Emergency (ER) | payer OTHER, BC ==
[2020-05-29] MEDS ORDERED: ONDANSETRON HCL INJ/PF 4 MG/2 ML SDV ONE (18:58)
--- NOTE | 2020-05-29 19:19 | EKG REPORT ---
SEVERITY:- NORMAL ECG - SINUS RHYTHM : Confirmed by: Natasha Devlin MD 29-May-2020 19:18:48
[2020-05-29 19:20] LABS: HEMATOCRIT 36.1 % (36.0-47.0); HEMOGLOBIN 12.2 g/dL (12.0-15.5); MEAN CORPUSCULAR HEMOGLOBIN 29.7 pg (27.0-33.4); MEAN CORPUSCULAR HGB CONC 33.9 g/dL (32.0-36.0); MEAN CORPUSCULAR VOLUME 88 fl (80-97); PLATELET COUNT 159 10^3/uL (150-450); RED BLOOD COUNT 4.11 10^6/uL (3.72-5.28); RED CELL DISTRIBUTION WIDTH 13.8 % (11.5-14.0); WHITE BLOOD COUNT 6.3 10^3/uL (4.0-10.5)
[2020-05-29 19:26] LABS: ALBUMIN 4.5 g/dL (3.5-5.0); ALKALINE PHOSPHATASE 147 U/L (38-126); ANION GAP 6 (5-19); ASPARTATE AMINO TRANSFERASE 655 U/L (14-36); BILIRUBIN,DIRECT 0.4 mg/dL (0.0-0.4); BLOOD UREA NITROGEN 24 mg/dL (7-20); CALCIUM 9.5 mg/dL (8.4-10.2); CARBON DIOXIDE 29 mmol/L (22-30); CHLORIDE 101 mmol/L (98-107); GLUCOSE 140 mg/dL (75-110); POTASSIUM 4.6 mmol/L (3.6-5.0); TOTAL PROTEIN 7.1 g/dL (6.3-8.2)
[2020-05-29] MEDS ORDERED: HYDROMORPHONE HCL INJ/PF 2 MG/ML AMPULE IV ONE ×2 (19:37→21:08)
[2020-05-29 19:38] LABS: ABSOLUTE LYMPHOCYTES# (MANUAL) 0.1 10^3/uL (0.5-4.7); ABSOLUTE MONOCYTES # (MANUAL) 0.1 10^3/uL (0.1-1.4); BASOPHILS % (MANUAL) 0 % (0-2); EOSINOPHILS % (MANUAL) 1 % (0-6); LYMPHOCYTES % (MANUAL) 2 % (13-45); MONOCYTES % (MANUAL) 2 % (3-13); PLATELET COMMENT ADEQUATE; RBC MORPHOLOGY COMMENT NORMO-CYTIC/CHROMIC; SEGMENTED NEUTROPHILS % (MAN) 95 % (42-78); TOTAL CELLS COUNTED 100
--- NOTE | 2020-05-29 19:38 | RADIOLOGY REPORT (SQ) ---
EXAM DESCRIPTION: CTA CHEST IMAGES COMPLETED DATE/TIME: 05/29/2020 7:23 pm REASON FOR STUDY: aneurysm hx, stomach pain COMPARISON: 04/03/2020 TECHNIQUE: CT scan of the chest performed using helical scanning technique with dynamic intravenous contrast injection. Images reviewed with lung, soft tissue and bone windows. Reconstructed coronal and sagittal MPR images reviewed. Additional 3 dimensional post-processing performed to develop Maximal Intensity Projection images (SD P). All images stored on PACS. All CT scanners at this facility use dose modulation, iterative reconstruction, and/or weight based d osing when appropriate to reduce radiation dose to as low as reasonably achievable (ALARA). [facility]: Dose Right [facility]: CareDose [facility]: Dose Right [facility]: Teradose 4D [facility]: [employer] CONTRAST TYPE AND DOSE: 100 mL Omnipaque 350- low osmolar. Contrast bolus adequate for pulmonary arteries and aorta. RENAL FUNCTION: Testing waived by the emergency room physician RADIATION DOSE: CT Rad equipment meets quality standard of care and radiation dose reduction techniq ues were employed. CTDIvol: 2.8 - 28.3 mGy. DLP: 936 mGy-cm. . LIMITATIONS: None. FINDINGS: LUNGS AND PLEURA: No masses, infiltrates, or pneumothorax. No pleural effusions or pleura l calcifications. AORTA AND GREAT VESSELS: There is mild aneurysmal dilatation of the ascending aorta that measures 43 mm. There is no dissection. HEART: No pericardial effusion. No significant coronary artery calcifications. PULMONARY ARTERIES: No emboli visualized in the main pulmonary arteries or the segmental branches. HILAR AND MEDIASTINAL STRUCTURES: No identified masses or abnormal nodes. HARDWARE: None in the chest. UPPER ABDOMEN: See separate report of the CT of the abdomen. THYROID AND OTHER SOFT TISSUES: No masses. No adenopathy. BONES: No acute or significant finding. 3D MIPS: Confirm above findings. OTHER: No other significant finding. IMPRESSION: There is a 43 mm aneurysm of the ascending aorta. There is no dissection in the thoraci c aorta. There is no pulmonary embolus. COMMENT: Quality ID # 436: Final reports with documentation of one or more dose reduction techniques (e.g., Automated exposure control, adjustment of the mA and/or kV according to patient size, use of iterative reconstruction technique) TECHNICAL DOCUMENTATION: JOB ID: [id number] 2010 [employer]- All Rights Reserved Reading location - IP/workstation name: [email or web address]
--- NOTE | 2020-05-29 19:48 | RADIOLOGY REPORT (SQ) ---
EXAM DESCRIPTION: CTA ABDOMEN/PELVIS W WO IMAGES COMPLETED DATE/TIME: 05/29/2020 7:23 pm REASON FOR STUDY: aneurysm hx, stomach pain COMPARISON: 08/17/2018 TECHNIQUE: CT scan of the abdominal aorta extending to the iliac bifurcation performed with intraven ous contrast using helical scanning technique with dynamic intravenous contrast injection. Images rev iewed with lung, soft tissue, and bone windows. Reconstructed coronal and sagittal MPR images reviewe d. All images stored on PACS. Advanced 3D imaging as volume rendering, MIPS, SSD performed? yes All CT scanners at this facility use dose modulation, iterative reconstruction, and/or weight based d osing when appropriate to reduce radiation dose to as low as reasonably achievable (ALARA). [facility]: Dose Right [facility]: CareDose [facility]: Dose Right [facility]: Teradose 4D [facility]: Adhysteria CONTRAST TYPE AND DOSE: contrast/concentration: Isovue 350.00 mmol/ml; Total Contrast Delivered: 100 .0 ml; Total Saline Delivered: 59.0 ml RENAL FUNCTION: Testing waived by the emergency room physician LIMITATIONS: None. FINDINGS: AORTA AND VESSELS: No aneurysm. No dissection. Renal arteries, SMA, celiac without stenosi s. LUNG BASES: See separate report for CTA of the chest. LIVER: Normal size. No masses or dilated ducts. SPLEEN: Normal size. No focal lesions. PANCREAS: No masses. No significant calcifications. No adjacent inflammation or peripancreatic fluid collections. Pancreatic duct not dilated. GALLBLADDER: Surgically absent. ADRENAL GLANDS: No significant masses or asymmetry. RIGHT KIDNEY AND URETER: No mass, calculi or urinary tract obstruction. LEFT KIDNEY AND URETER: No mass, calculi or urinary tract obstruction. RETROPERITONEUM: No retroperitoneal adenopathy, hemorrhage or masses. BOWEL AND PERITONEAL CAVITY: No masses or inflammatory changes. No free fluid or peritoneal masses. APPENDIX: Not identified. ABDOMINAL WALL: No masses. No hernias. BONY STRUCTURES: No significant or acute findings. 3-D IMAGING: Confirms the above findings. OTHER: No other significant finding. IMPRESSION: There is no abdominal aortic aneurysm or dissection. No significant stenoses. COMMENT: Findings for this study and the CTA of the chest were discussed with the ordering physician at 1941 hours on this date. TECHNICAL DOCUMENTATION: JOB ID: [id number] Quality ID # [id number]: Final reports with documentation of one or more dose reduction techniques (e.g., Au tomated exposure control, adjustment of the mA and/or kV according to patient size, use of iterative reconstruction technique) 2010 [employer]- All Rights Reserved Reading location - IP/workstation name: [email or web address]
--- NOTE | 2020-05-29 20:15 | ER Document Report ---
ED General - General TRAVEL OUTSIDE OF THE [place] IN LAST 30 DAYS: No - Related Data Home Medications: Furosemide. Methotrexate. metoprolol. Crestor <ZULEYKA DE LEON - Last Filed: 05/29/20 22:01> <OSCAR DANIELS - Last Filed: 05/30/20 01:02> - General Chief Complaint: Abdominal Pain Stated Complaint: SEVERE STOMACH PAIN/DIARRHEA Time Seen by Provider: 05/29/20 18:51 Primary Care Provider: YARELI OGNZALEZ MD [Primary Care Provider] - Follow up in 3-5 days - [facility] Notes: Patient is a 54-year-old female with a past medical history of a abdominal aortic aneurysm that is 4.3 cm from testing yesterday who presents with abdominal pain. Patient states that she had an appointment with her cardiolog ist today. She is also had a cardiac MRI yesterday at [place] for a bicuspid aortic valve. Patient states that today, she began having abdominal pain and back pain that is diffuse. She describes it as a tearing pain. She also became diaphoretic. She mentions she has had diarrhea for about 1 week. She has never had abdominal pain like this before. She does have a history of a tubal ligation and gastric bypass and a cholecystectomy. Patient denies any vomiting. She states she does have some nausea. (ZULEYKA DE LEON) - Related Data Allergies/Adverse Reactions: midazolam [From Versed] Allergy (Severe, Verified 05/29/20 19:22) promethazine [From Phenergan] Allergy (Severe, Verified 05/29/20 19:22) red dye Allergy (Severe, Verified 05/29/20 19:22) morphine Allergy (Mild, Verified 05/29/20 19:22) Hives meperidine Allergy (Verified 05/29/20 19:22) Nausea lidocaine Adverse Reaction (Verified 05/29/20 19:22) nitrous oxide Adverse Reaction (Verified 05/29/20 19:22) pregabalin [From Lyrica] Adverse Reaction (Verified 05/29/20 19:22) Generalized edema procaine [From Novocain] Adverse Reaction (Verified 05/29/20 19:22) propofol Adverse Reaction (Verified 05/29/20 19:22) sulfamethoxazole [From Bactrim] Adverse Reaction (Verified 05/29/20 19:22) Hives trimethoprim [From Bactrim] Adverse Reaction (Verified 05/29/20 19:22) Hives Past Medical History - General Information source: Patient - Social History Smoking Status: Unknown if Ever Smoked Chew tobacco use (# tins/day): No Frequency of alcohol use: None Drug Abuse: None Family History: Reviewed & Not Pertinent - Past Medical History Cardiac Medical History: Reports: Hx Hypercholesterolemia, Hx Hypertension - IRBESARTIN Denies: Hx Coronary Artery Disease, Hx Heart Attack Pulmonary Medical History: Reports: Hx Pneumonia - 2017 Denies: Hx Asthma, Hx Bronchitis, Hx COPD Neurological Medical History: Reports: Hx Migraine. Denies: Hx Cerebrovascular Accident, Hx Seizures Renal/ Medical History: Reports: Hx Kidney Stones. Denies: Hx Peritoneal Dialysis Musculoskeletal Medical History: Reports Hx Arthritis - PSORIATIC ARTHRITIS Past Surgical History: Reports: Hx Breast Surgery - reduction, Hx Section, Hx Gastric Bypass Surgery, Hx Orthopedic Surgery - Status post open reduction internal fixation of a right distal femoral fritz, Other - Sphenocath - Immunizations Immunizations up to date: Yes Hx Diphtheria, Pertussis, Tetanus Vaccination: Yes - 12/24/2019 <ZULEYKA DE LEON - Last Filed: 05/29/20 22:01> Review of Systems <ZULEYKA DE LEON - Last Filed: 05/29/20 22:01> - Review of Systems Notes: CONSTITUTIONAL: No fever, fatigue or weight loss. SKIN: No rash. HENT: No congestion, ear pain, or sore throat. EYES: No recent vision problems or eye pain. CARDIOVASCULAR: No chest pain or edema. RESPIRATORY: No cough, shortness of breath, congestion, or wheezing. GASTROINTESTINAL: Positive for abdominal pain, nausea, diarrhea GENITOURINARY: No dysuria. MUSCULOSKELETAL: Positive for thoracic back pain. NEUROLOGIC: No seizures. No headache, focal weakness or sensory changes. HEMATOLOGIC: No unusual bruising or bleeding. PSYCHIATRIC: No depression or anxiety. (ZULEYKA DE LEON) Physical Exam - General General appearance: Anxious In distress: Moderate <ZULEYKA DE LEON - Last Filed: 05/29/20 22:01> - Vital signs Vitals: Temp Pulse Resp BP Pulse Ox 98.2 F 87 20 119/66 96 05/29/20 18:28 05/29/20 18:28 05/29/20 18:28 05/29/20 18:28 05/29/20 18:28 - General Notes: VITAL SIGNS: Within normal limits. GENERAL: No acute distress, non-toxic appearance. HEAD: Normal with no signs of head trauma. EYES: Conjunctiva normal, no discharge. EARS: Hearing grossly intact. NECK: Normal range of motion, no tenderness, supple, no lymphadenopathy, No adenopathy, no JVD. CHEST: Clear breath sounds bilaterally. No wheezes, rales, or rhonchi. CARDIAC: Regular rate and rhythm. S1 and S2, without murmurs, gallops, or rubs. VASCULAR: No Edema. Peripheral pulses normal and equal in all extremities. ABDOMEN: Normal and soft. Diffuse discomfort to palpation. No rigidity or guarding. GASTROINTESTINAL: Bowel sounds normal GENITOURINARY: Normal, No tenderness MUSCULOSKELETAL: Good range of motion of all major joints. Extremities without clubbing, cyanosis or edema. Discomfort to thoracic palpation of her spine. NEUROLOGICAL: Alert and oriented x 3. No focal sensory or strength deficits. Speech normal. Follows commands appropriately. PSYCHIATRIC: Normal Affect, judgement and mood. SKIN: Normal appearance with no rashes or lesions. (ZULEYKA DE LEON) Course - Laboratory Results Result Diagrams: 05/29/20 18:50 05/29/20 18:50 Critical Laboratory Results Reviewed: No Critical Results - Radiology Results Critical Radiology Results Reviewed: No Critical Results - EKG Interpretation by Ma EKG shows normal: Sinus rhythm Rate: Normal Rhythm: NSR When compared to previous EKG there are: Previous EKG unavailable <ZULEYKA DE LEON - Last Filed: 05/29/20 22:01> - Laboratory Results Result Diagrams: 05/29/20 18:50 05/29/20 18:50 <OSCAR DANIELS - Last Filed: 05/30/20 01:02> - Re-evaluation Re-evalutation: 05/29/20 21:47 Patient was sent for a CTA medially to rule out dissection or ruptured aneurysm. This was negative. Patient had some pain control but then the pain returned. I have given her more pain medicine. Her back pain is very reproducible. Her abdominal exam is benign. Patient does have elevated LFTs which is new. She has been unable to provide a stool sample while in the ED. She is afebrile. Not have a reason for her pain. She does seem significantly uncomfortable. I will discuss with the hospitalist see if they have any further recommendations. Patient will be signed out at end of my shift. 05/29/20 21:57 (ZULEYKA DE LEON) 05/30/20 00:57 Patient turned over to me pending second troponin and reevaluation the patient who came in with severe diffuse abdominal pain that has now significantly improved, patient will CTA aortic dissection protocol she has known thoracic aortic aneurysm and this was stable in size since imaging that she had approximately 2 weeks ago at [place]. Patient passing gas and now feels improved. On her work-up her LFTs were elevated with a normal INR, patient had a distant cholecystectomy but her abdominal pain is on her right upper quadrant and is unclear at that these abnormal LFTs are related to her current presentation but there is no current indication for MRCP or ERCP for retained hepatic stones. P bridgette does say that she had hepatitis a approximately 2 years ago and does not know what her liver function has been since then. Patient's abdominal exam is currently benign without any tenderness, rebound, or guarding. Patient tolerating p.o. Patient had 4-hour repeat troponin which remained negative and patient never had any chest pain or shortness of breath. Patient has a bulb weeder who she can follow-up with closely and instructed to call and make appointment today. Gave patient extensive return to ED precautions which she demonstrated understanding of. Patient appropriate for discharge at this time. Patient is in agreement with treatment plan and denies having any other questions or concerns regarding her care. (OSCAR DANIELS) - Vital Signs Vital signs: Temp Pulse Resp BP Pulse Ox 98.2 F 87 20 119/66 96 05/29/20 18:28 05/29/20 18:28 05/29/20 18:28 05/29/20 18:28 05/29/20 18:28 - Laboratory Results Laboratory Results Interpreted: 05/29/20 05/29/20 05/29/20 18:50 18:50 18:50 Seg Neuts % (Manual) 95 H Lymphocytes % (Manual) 2 L Monocytes % (Manual) 2 L Abs Lymphs (Manual) 0.1 L Sodium 135.8 L BUN 24 H Glucose 140 H AST 655 H ALT 301 H Alkaline Phosphatase 147 H Acetaminophen < 10 L Discharge <ZULEYKA DE LEON - Last Filed: 05/29/20 22:01> <OSCAR DANIELS - Last Filed: 05/30/20 01:02> - Discharge Clinical Impression: Transaminitis, Suspected COVID-19 virus infection Abdominal pain Qualifiers: Abdominal location: generalized Qualified Code(s): R10.84 - Generalized abdominal pain Back pain Qualifiers: Back pain location: thoracic back pain Chronicity: acute Back pain laterality: midline Qualified Code(s): M54.6 - Pain in thoracic spine Condition: Stable Disposition: HOME, SELF-CARE Instructions: Abdominal Pain ([facility]) Additional Instructions: Your liver enzymes are elevated. Please follow-up with your family doctor and bulb weeder within 1 week. you may need to do more testing. You were tested for COVID-19. You must self isolate until you are called with a negative result. Patient was provided with discharge information including: As a person under investigation for Covid 19, the [place] department of Health and Human Services, division of public health advises you to adhere to the following guidance until your test results are reported to you. If your test result is positive, you will receive additional information from your provider and your local health department at that time. Remain at home until you are cleared by the health provider or public health authorities. Keep a log of visitors to your home, notify any visitors to your home of your isolation status. If you plan to move to a new address or leave the county, notify the local health department in your County. Call your doctor or seek care if you have an urgent medical need. Before seeking medical care, call ahead to get instructions from the provider before arriving at the medical office clinic or hospital. Notify them that you are being tested for the virus that causes Covid 19 so that arrangements can be made, as necessary, to prevent transmission to others in the healthcare setting. Next, notify the local health department in your county. If a medical emergency arises and you need to call 911, inform the first responders that you are being tested for the virus that causes Covid 19. Next, notify the local health department in your county. If it anytime your abdominal pain becomes worse, you have vomiting cannot unable to keep down liquids by mouth, black stool, bloody stool, fever of 100.4 or higher, chest pain, difficulty breathing, dizziness, fainting, or any other worsening or alarming symptoms return to the emergency department immediately. Referrals: YARELI GONZALEZ MD [Primary Care Provider] - Follow up in 3-5 days
[2020-05-29] MEDS ORDERED: NORMAL SALINE 1000 ML 1,000 ML IV ONE (20:26)
[2020-05-29 20:34] LABS: PROTHROMBIN TIME 13.4 SEC (11.4-15.4)
[2020-05-29 20:49] LABS: APPEARANCE,URINE CLEAR; BILIRUBIN,URINE NEGATIVE (NEGATIVE); COLOR,URINE YELLOW; GLUCOSE, URINE NEGATIVE (NEGATIVE); KETONES,URINE NEGATIVE (NEGATIVE); LEUKOCYTE ESTERASE,URINE NEGATIVE (NEGATIVE); NITRITE,URINE NEGATIVE (NEGATIVE); PROTEIN,URINE NEGATIVE (NEGATIVE); URINE SPECIFIC GRAVITY 1.045; UROBILINOGEN,URINE NEGATIVE mg/dL (<2.0)
[2020-05-29] MEDS ORDERED: METOCLOPRAMIDE HCL INJ/PF 10 MG/2 ML SDV IV ONE (21:11)
[2020-05-29] MEDS ORDERED: KETOROLAC TROMETHAMINE INJ/PF 30 MG/1 ML SDV IV ONE (21:14)
--- NOTE | 2020-05-30 00:04 | PDOC CONSULTATION ---
Consultation Consult Date: 05/29/20 Attending physician:: ZULEYKA DE LEON Provider Consulted: RIKKI FRAUSTO Consult reason:: Abdominal pain History of Present Illness Admission Date/PCP: YARELI GONZALEZ MD Patient complains of: Abdominal pain History of Present Illness: CHELSEY COMER is a 54 year old female with a history of hypertension, GERD, gastric bypass surgery 15 years back, psoriatic arthritis, IBS, ascending aortic aneurysm and bicuspid aortic valve who presents to the ED reporting generalized diffuse abdominal pain of 1 day duration. She described the pain as sharp, excruciating, involving all over here abdomen including the flank areas. Associated with this patient also had watery diarrhea with some nausea but denies any vomiting. She states that she was seen at [facility] for follow-up and to learn about her test results including cardiac MRI which was done about 3 weeks back. Patient states that she was experiencing excruciating abdominal and low back pain which progressively got worse throughout the day. She denies any fever but endorses chills, diaphoresis and dizziness. She denies any similar pain in the past. She has not noticed any relief of abdominal pain with bowel movement. She denies hematemesis, melena or hematochezia. Patient also denies any cough, runny nose, congestion, change in hair sense of smell or taste. She denies any dysuria, frequency, urgency or hematuria. But she has been to [facility] multiple times in the past few weeks and have been staying in the hospital and she verbalizes concern for COVID-19 infection. She denies any alcohol abuse or IV drug use. Denies any recent antibiotic use. Past Medical History Cardiac Medical History: Reports: Hyperlipidema, Hypertension - IRBESARTIN Denies: Coronary Artery Disease, Myocardial Infarction Pulmonary Medical History: Reports: Pneumonia - 2017 Denies: Asthma, Bronchitis, Chronic Obstructive Pulmonary Disease (COPD) Neurological Medical History: Reports: Migraine Denies: Seizures Musculoskeltal Medical History: Reports: Arthritis - PSORIATIC ARTHRITIS Hematology: Reports: Anemia - IRON DEFICIENT Past Surgical History Past Surgical History: Reports: Section, Gastric Bypass Surgery, Orthopedic Surgery - Status post open reduction internal fixation of a right distal femoral fritz, Other - Sphenocath Social History Information Source: Patient Lives with: Family Smoking Status: Unknown if Ever Smoked Electronic Cigarette use?: No Frequency of Alcohol Use: None Hx Recreational Drug Use: No Drugs: None Hx Prescription Drug Abuse: No - Advance Directive Resuscitation Status: Full Code Family History Family History: Reviewed & Not Pertinent Parental Family History Reviewed: Yes Children Family History Reviewed: Yes Sibling(s) Family History Reviewed.: Yes Medication/Allergy Home Medications: Cholecalciferol (Vitamin D3) [Vitamin D3] 5,000 unit PO DAILY 04/09/19 Doxylamine Succinate [Unisom] 25 mg PO QHS 04/09/19 Ferrous Sulfate [Iron] 325 mg PO DAILY 04/09/19 Folic Acid [Folvite 1 mg Tablet] 1 mg PO DAILY 04/09/19 Furosemide [Lasix 20 mg Tablet] 20 mg PO DAILY 04/09/19 Hydrocodone/Acetaminophen [[place] 5-325 mg Tablet] 1 tab PO Q6HP PRN 04/09/19 Irbesartan [Avapro] 75 mg PO DAILY 04/09/19 Methotrexate Sodium [Rheumatrex 2.5 mg Tablet] 15 mg PO WE@1000 04/09/19 Potassium &Magnesium Aspartate [Ra Potassium-Magnesium Asp 250] 1 each PO QHS 04/09/19 Rosuvastatin Calcium [Crestor 20 mg Tablet] 20 mg PO QHS 04/09/19 Sertraline HCl [Zoloft] 25 mg PO QHS 04/09/19 Tizanidine HCl [Zanaflex] 4 mg PO QHS 04/09/19 Trazodone HCl [Desyrel 50 mg Tablet] 100 mg PO QHS 04/09/19 Amox Tr/Potassium Clavulanate [Augmentin 875-125 mg Tablet] 1 tab PO BID #10 tablet 05/30/19 Dicyclomine HCl [Bentyl 20 mg Tablet] 20 mg PO QID PRN #20 tablet 11/01/19 Famotidine [Pepcid 20 mg Tablet] 20 mg PO BID #14 tablet 11/01/19 Sucralfate [Carafate 1 gm Tablet] 1 gm PO QID #20 tablet 11/01/19 Triamcinolone Acetonide [Aristocort 0.1% Cream] 1 applic TP BID #1 tub 01/23/20 Allergies/Adverse Reactions: midazolam [From Versed] Allergy (Severe, Verified 05/29/20 19:22) promethazine [From Phenergan] Allergy (Severe, Verified 05/29/20 19:22) red dye Allergy (Severe, Verified 05/29/20 19:22) morphine Allergy (Mild, Verified 05/29/20 19:22) Hives meperidine Allergy (Verified 05/29/20 19:22) Nausea lidocaine Adverse Reaction (Verified 05/29/20 19:22) nitrous oxide Adverse Reaction (Verified 05/29/20 19:22) pregabalin [From Lyrica] Adverse Reaction (Verified 05/29/20 19:22) Generalized edema procaine [From Novocain] Adverse Reaction (Verified 05/29/20 19:22) propofol Adverse Reaction (Verified 05/29/20 19:22) sulfamethoxazole [From Bactrim] Adverse Reaction (Verified 05/29/20 19:22) Hives trimethoprim [From Bactrim] Adverse Reaction (Verified 05/29/20 19:22) Hives Review of Systems Constitutional: PRESENT: as per HPI Eyes: ABSENT: visual disturbances Ears: ABSENT: hearing changes Nose, Mouth, and Throat: ABSENT: mouth pain, sore throat Cardiovascular: ABSENT: chest pain, dyspnea on exertion, edema, orthropnea, palpitations Respiratory: ABSENT: cough, hemoptysis Gastrointestinal: PRESENT: as per HPI Genitourinary: PRESENT: as per HPI Musculoskeletal: ABSENT: joint swelling Integumentary: ABSENT: rash, wounds Neurological: ABSENT: abnormal gait, abnormal speech, confusion, dizziness, focal weakness, syncope Psychiatric: ABSENT: anxiety, depression, homidical ideation, suicidal ideation Endocrine: ABSENT: cold intolerance, heat intolerance, polydipsia, polyuria Hematologic/Lymphatic: ABSENT: easy bleeding, easy bruising Physical Exam Vital Signs: Temp Pulse Resp BP Pulse Ox 98.2 F 87 20 119/66 96 05/29/20 18:28 05/29/20 18:28 05/29/20 18:28 05/29/20 18:28 05/29/20 18:28 Intake & Output 05/28/20 05/29/20 05/30/20 06:59 06:59 06:59 Weight 82.7 kg Additional comments: GENERAL APPEARANCE: Alert and oriented x3, in no acute distress HEENT: Normocephalic and atraumatic. No scleral icterus. Moist oral mucosa NECK: Supple. No lymphadenopathy or tenderness. No JVD CHEST: Symmetric. Nontender to palpation. LUNGS: Clear with good air entry bilaterally. No wheezing or crackles HEART: Regular rate and rhythm with normal S1 and S2. No murmurs, gallops, or rubs. ABDOMEN: Soft, active bowel sounds, no direct or rebound tenderness. No guarding or rigidity. No organomegaly or mass detected. EXTREMITIES: No cyanosis, clubbing, or edema. MUSCULOSKELETAL: No deformity, atrophy or swelling noted PSYCHIATRIC: Recent and remote memory is intact. Appropriate mood and affect. SKIN: Warm, dry, and well perfused. No lesions or rashes are noted. NEUROLOGIC: No focal sensory or motor deficits are noted. Results Laboratory Results: 05/29/20 18:50 05/29/20 18:50 05/29/20 05/29/20 05/29/20 18:50 18:50 18:50 WBC 6.3 RBC 4.11 Hgb 12.2 Hct 36.1 MCV 88 MCH 29.7 MCHC 33.9 RDW 13.8 Plt Count 159 Seg Neutrophils % Not Reportable Sodium 135.8 L Potassium 4.6 Chloride 101 Carbon Dioxide 29 Anion Gap 6 BUN 24 H Creatinine 0.56 Est GFR ( Amer) > 60 Glucose 140 H Calcium 9.5 Total Bilirubin 1.0 AST 655 H Alkaline Phosphatase 147 H Total Protein 7.1 Albumin 4.5 Lipase 95.6 Urine Color Urine Appearance Urine pH Ur Specific [place] Urine Protein Urine Glucose (UA) Urine Ketones Urine Blood Urine Nitrite Ur Leukocyte Esterase Urine WBC (Auto) Urine RBC (Auto) Blood Type A POSITIVE Antibody Screen NEGATIVE 05/29/20 20:35 WBC RBC Hgb Hct MCV MCH MCHC RDW Plt Count Seg Neutrophils % Sodium Potassium Chloride Carbon Dioxide Anion Gap BUN Creatinine Est GFR ( Amer) Glucose Calcium Total Bilirubin AST Alkaline Phosphatase Total Protein Albumin Lipase Urine Color YELLOW Urine Appearance CLEAR Urine pH 6.0 Ur Specific [place] 1.045 Urine Protein NEGATIVE Urine Glucose (UA) NEGATIVE Urine Ketones NEGATIVE Urine Blood NEGATIVE Urine Nitrite NEGATIVE Ur Leukocyte Esterase NEGATIVE Urine WBC (Auto) 0 Urine RBC (Auto) 1 Blood Type Antibody Screen 05/29/20 18:50 Troponin I < 0.012 Impressions: Abdomen/Pelvis CTA 05/29/20 18:55 IMPRESSION: There is no abdominal aortic aneurysm or dissection. No sign ificant stenoses. Chest/Abdomen CTA 05/29/20 18:55 IMPRESSION: There is a 43 mm aneurysm of the ascending aorta. There is no dissection in the thoracic aorta. There is no pulmonary embolus. Assessment and Plan - Diagnosis (1) Abdominal pain Qualifiers: Abdominal location: generalized Qualified Code(s): R10.84 - Generalized abdominal pain Is this a current diagnosis for this admission?: Yes (2) Diarrhea Is this a current diagnosis for this admission?: Yes (3) Suspected COVID-19 virus infection Is this a current diagnosis for this admission?: Yes (4) Transaminitis Is this a current diagnosis for this admission?: Yes (5) Thoracic aortic aneurysm Qualifiers: Presence of rupture: without rupture Qualified Code(s): I71.2 - Thoracic aortic aneurysm, without rupture Is this a current diagnosis for this admission?: Yes (6) Irritable bowel syndrome Is this a current diagnosis for this admission?: Yes (7) GERD (gastroesophageal reflux disease) Is this a current diagnosis for this admission?: Yes (8) Hypertension Is this a current diagnosis for this admission?: Yes (9) Psoriatic arthritis Is this a current diagnosis for this admission?: Yes (10) Status post gastric bypass for obesity Is this a current diagnosis for this admission?: Yes - Plan Summary Summary: Ms. Comer is a 54-year-old female with multiple comorbidities who presents to the ED with generalized abdominal pain and diarrhea. On presentation to the ED patient was hemodynamically stable. On my evaluation, abdomen was flat, moves with respiration, positive bowel sounds, soft on palpation with no direct or rebound tenderness, there was no guarding or rigidity. Labs were notable for normal WBC count with stable H&H of 12.2/36.1. Serum electrolytes and kidney function test were within the normal limit. Lipase and lactic acid levels were within the normal limit. Liver enzymes were elevated AST: 655, ALT: 301, alk phos: 147 direct and total bilirubin levels were within the normal limit. Urine analysis showed no sign of UTI. Acetaminophen and serum alcohol level were also within the normal limit. CTA of the chest/abdomen/pelvis was also done which showed 43 mm ascending aortic aneurysm with no sign of dissection or rupture, there was no sign of abdominal aortic aneurysm or dissection and no significant stenosis was noted which makes ischemic colitis or mesenteric ischemia unlikely. No inflammatory changes or free fluid or air in the peritoneum were noted. Patient's pain appears to be of musculoskeletal origin due to ongoing chronic pain syndrome including psoriatic arthritis involving low back area. But watery diarrhea and elevated liver enzymes are concerning for possible acute hepatitis possible hepatitis A. Patient has been hydrated at the ED and she reports interval improvement in her pain since presentation. Consider obtaining hepa titis panel, COVID-19 screening. In addition to pain medications she received, would recommend giving her PPI, dicyclomine. At this point patient can be treated as outpatient with advise to come back if symptoms do not resolve. - Time Time Spent with patient: 35 or more minutes Total Critical Time (Minutes): 45 Medications reviewed and adjusted accordingly: Yes Anticipated Discharge Disposition: Home, Self Care Anticipated Discharge Timeframe: within 48 hours - Inpatient Certification Based on my medical assessment, after consideration of the patient's comorbidities, presenting symptoms, or acuity I expect that the services needed warrant INPATIENT care.: Yes I certify that my determination is in accordance with my understanding of Medicare's requirements for reasonable and necessary INPATIENT services [42 CFR 412.3e].: Yes Medical Necessity: Other - Patient to be managed as outpatient Post Hospital Care: D/C or Transfer Summary
[2020-05-30 01:37] VITALS: BP 98/55
[2020-05-31 05:38] LABS: HEPATITS B SURFACE ANTIGEN Negative (Negative)
[2020-05-31 07:16] LABS: HEPATITIS C VIRUS ANTIBODY <0.1 s/co ratio (0.0-0.9)
== END 2020-05-30 01:49 | disposition home or self-care (01) ==
LOC: ER 18:15
DX: K58.0 Irritable bowel syndrome with diarrhea (principal); K21.9 Gastro-esophageal reflux disease without esophagitis; R10.84 Generalized abdominal pain; I71.2 Thoracic aortic aneurysm, without rupture; M54.6 Pain in thoracic spine; R74.01 Elevation of levels of liver transaminase levels; R11.0 Nausea; I10 Essential (primary) hypertension; E78.5 Hyperlipidemia, unspecified; E78.00 Pure hypercholesterolemia, unspecified; Q23.1 Congenital insufficiency of aortic valve; L40.50 Arthropathic psoriasis, unspecified; Z79.899 Other long term (current) drug therapy; Z98.84 Bariatric surgery status; Z98.51 Tubal ligation status; Z90.49 Acquired absence of other specified parts of digestive tract; Z88.8 Allergy status to other drugs, medicaments and biological substances; Z91.048 Other nonmedicinal substance allergy status; Z88.6 Allergy status to analgesic agent; Z88.5 Allergy status to narcotic agent; Z20.822 Contact with and (suspected) exposure to COVID-19
CPT/HCPCS: 93005; 96376; 99285; 96361; 96374; 96375; 86900; 86901; 36415; 86850; 80307 ×2; 83605; 83690; 85025; 85610; 80053; 81001; 84484; 80074; 71275; 74174; 93010; U0003; J1885; J2765; J1170; J2405; J7030; C9803; 87635